=== PATIENT | female | born 1990 | race Caucasian/White ===

== ENCOUNTER 2018-12-21 07:09 | Emergency (ER) | payer OTHER ==
[2018-12-21 07:26] VITALS: BP 116/72
[2018-12-21] MEDS ORDERED: Ondansetron ODT TAB* 4 MG PO ONE (07:42)
--- NOTE | 2018-12-21 07:57 | UC ---
Abdominal Pain Female HPI - HPI Summary HPI Summary: 28 yo female with one month hx of intermittent nausea/v/d has had a sore throat for the entire time her sore throat worsened about a week ago was unable to tolerate liquids or her saliva see in urgent care in [facility] had (-) strep and mono spot started on AMOX 6 days ago Seen by PMD 2 days ago Told she had a right tonsillar abscess dose of AMOX was increased Now with severe diffuse abdominal pain, severe nausea , >20 episodes of vomiting and multiple episodes of diarrhea which started yesterday High fever (>103) severe arthralgias, myalgias (worse knees and calcaneal) Hx psoriasis - History of Current Complaint Chief Complaint: UCGI Stated Complaint: FEVER/VOMITTING Time Seen by Provider: 12/21/18 07:24 Hx Obtained From: Patient Hx Last Menstrual Period: 2 weeks ago Onset/Duration: Gradual Onset, Lasting Weeks Timing: Constant Severity Initially: Mild Severity Currently: Severe Pain Intensity: 7 Pain Scale Used: 0-10 Numeric Location: Diffuse Radiates: No Character: Cramping Aggravating Factor(s): Nothing Alleviating Factor(s): Nothing Associated Signs and Symptoms: Positive: Fever, Decreased Appetite, Nausea, Vomiting, Diarrhea. Negative: Cough, Chest Pain, Dizzy, Back Pain, Constipation , Blood in Stool, Urinary Symptoms, Vaginal Bleeding, Vaginal Discharge Allergies/Adverse Reactions: Allergies Allergy/AdvReac Type Severity Reaction Status Date / Time Sulfa (Sulfonamide Allergy Hives Verified 12/21/18 07:26 Antibiotics) Home Medications: Home Medications Acetaminophen TAB* [Tylenol TAB*] 1,000 mg PO ONCE PRN 12/21/18 [History Confirmed 12/21/18] Omeprazole 20 mg PO DAILY 12/21/18 [History Confirmed 12/21/18] Ondansetron TAB* [Zofran 4 MG Tab*] 4 mg PO Q6H PRN 12/21/18 [History Confirmed 12/21/18] PMH/Surg Hx/FS Hx/Imm Hx Previously Healthy: Yes Psychological History: Depression - Surgical History Surgical History: None - Family History Known Family History: Positive: Cardiac Disease, Hypertension, Diabetes, Non- Contributory - Social History Alcohol Use: Occasionally Substance Use Type: None Smoking Status (MU): Never Smoked Tobacco Review of Systems All Other Systems Reviewed And Are Negative: Yes Constitutional: Positive: Fever, Chills, Fatigue Skin: Positive: Rash - chronic ENT: Positive: Negative Respiratory: Positive: Negative Cardiovascular: Positive: Negative Gastrointestinal: Positive: Abdominal Pain, Vomiting, Diarrhea, Nausea Genitourinary: Positive: Negative Motor: Positive: Negative Neurovascular: Positive: Negative Musculoskeletal: Positive: Arthralgia, Myalgia Neurological: Positive: Negative Psychological: Positive: Negative Physical Exam Triage Information Reviewed: Yes Appearance: Ill-Appearing Vital Signs: Initial Vital Signs Temp 100.8 F 12/21/18 07:20 Pulse 126 12/21/18 07:20 Resp 22 12/21/18 07:20 BP 116/72 12/21/18 07:20 Pulse Ox 100 12/21/18 07:20 Vital Signs Reviewed: Yes Eyes: Positive: Conjunctiva Clear ENT: Positive: Hearing grossly normal, Pharyngeal erythema, Tonsillar swelling - ucleration right tonsil, Uvula midline. Negative: Nasal congestion, Nasal drainage, Tonsillar exudate, Trismus, Muffled voice, Hoarse voice Dental: Positive: Gross Decay/Caries @ Neck: Positive: Supple, Nontender, Enlarged Nodes @ - mild ant cerv Respiratory: Positive: Lungs clear, Normal breath sounds, No respiratory distress, No accessory muscle use Cardiovascular: Positive: RRR, No Murmur, Tachycardia Abdomen Description: Positive: No Organomegaly, Soft. Negative: Nontender - diffusely tender to palpation, CVA Tenderness (R), CVA Tenderness (L), Distended , Guarding, Hepatomegaly, Peritoneal Signs, Pulsatile Mass, Splenomegaly Bowel Sounds: Positive: Present Musculoskeletal: Positive: ROM Intact, No Edema, Other: - no hot joints Neurological: Positive: Alert Psychological Exam: Normal Skin Exam: Other - consistent psorisis Abd Pain Female Course/Dx - Course Course Of Treatment: 28 yo female ill x 1 month with sore throat/n/v/d and 3-5 pound wt loss oral ulcerations and hx of psoriasis raise the possibility of Inflammatory bowel disease - Differential Dx/Diagnosis Provider Diagnosis: Diffuse abdominal pain Discharge - Sign-Out/Discharge Documenting (check all that apply): Patient Departure All imaging exams completed and their final reports reviewed: No Studies - Discharge Plan Condition: Stable Disposition: HOME-RECOMMEND TO ED Referrals: No Primary Care Phys,NOPCP [Primary Care Provider] - Additional Instructions: I suggest you go straight to the ER for evaluation of your fever/abd pain and voimitng/diarrhea - Billing Disposition and Condition Condition: STABLE Disposition: Home-Recommend to ED
== END 2018-12-21 07:50 | disposition home health service (06) ==
LOC: UCEAST 07:09
DX: R10.84 Generalized abdominal pain (principal); R11.2 Nausea with vomiting, unspecified; R19.7 Diarrhea, unspecified; R50.9 Fever, unspecified; K12.1 Other forms of stomatitis; L40.9 Psoriasis, unspecified; Z88.2 Allergy status to sulfonamides
CPT/HCPCS: 99212; A9270-GY; G0463

== ENCOUNTER 2018-12-21 08:06 | Inpatient (IN) | payer OTHER ==
[2018-12-21] MEDS ORDERED: NS 0.9% 1000 ML** 1,000 ML IV.FLUID IV ONE (08:26)
[2018-12-21] MEDS ORDERED: Piperacillin/Tazobac ADVAN(*) 3.375 GM in NS 0.9% 100 ML* 100 ML IVPB ONE (08:26)
[2018-12-21] MEDS ORDERED: Vancomycin(*) 1,000 MG in NS 0.9% 250 ML* 250 ML IVPB ONE ×2 (08:28→09:30)
[2018-12-21] MEDS ORDERED: Ketorolac INJ* 30 MG/ML 1 ML VIAL IV PUSH ONE (08:33)
[2018-12-21] MEDS ORDERED: Metoclopramide IV* 5 MG/ML 2 ML VIAL IV ONE (08:33)
--- NOTE | 2018-12-21 08:49 | ED ---
Abdominal Pain/Female - HPI Summary HPI Summary: Patient is a 28-year-old female with history of depression, anxiety, eczema and bilateral kidney stones presenting to the ED with diffuse abdominal pain, nausea , vomiting, joint aches and sore throat 1 month. She also endorses fevers, sweats, chills and mild cough without production. All symptoms have worsened over the past 2 days. She denies CP or SOB. One month ago her symptoms began with diffuse abdominal pain, nausea and vomiting which was intermittent, worse after eating although remained present despite PO intake. She then developed joint aches, most notably to her bilateral knees, ankles, pain and slight erythema just superior to the bilateral ankles and bilateral heel pain making her difficult to walk. She denies any weakness, but endorses fatigue. Denies any rashes, tick bites and patient is not outside frequently. She was seen by [facility] and diagnosed with viral syndrome but did not improve. She then saw her primary care, Dr. Irina Clements, who placed her on omeprazole and diagnosed her with acute laryngitis. She states despite feeling N/V/D x 1 mo, she did not seek help until last week. Denies vomiting daily, but endorses nausea daily. Over the past 2 days, she endorses nausea too many to count. Diarrhea daily, profuse but not watery. She has been taking cold baths and taking Tylenol for the past 36 hours for her sxs. Menses regular. Patient on OCP use. No change or diet or environment. Denies melena, hematemesis, hemoptysis, hematuria, UTI sxs, back pain. [place] and strep both negative at 2 days ago. She was seen at today and sent here for further evaluation. Temp 101.0, 125 pulse, respirations 18, 98% on RA and BP 119/83. Mother is at bedside. Patient is a school psychologist. Non-smoker, drinks alcohol occasionally. - History of Current Complaint Chief Complaint: EDAbdPain Stated Complaint: FEVER, BODY ACHE, COMMING FROM Time Seen by Provider: 12/21/18 08:09 Hx Obtained From: Patient, Family/Non Destructive Testing Scientist Hx Last Menstrual Period: 2 weeks ago ?: No Onset/Duration: Gradual Onset Timing: Constant Severity Initially: Severe Severity Currently: Severe Pain Intensity: 7 Pain Scale Used: 0-10 Numeric Location: Diffuse Radiates: No Character: Cramping Aggravating Factor(s): Food Alleviating Factor(s): Nothing Associated Signs and Symptoms: Positive: Diaphoresis, Fever, Cough, Nausea, Vomiting, Diarrhea. Negative: Chest Pain, Dizzy, Back Pain, Constipation, Blood in Stool, Urinary Symptoms, Decreased Appetite, Vaginal Discharge - Risk Factors Ovarian Torsion Risk Factor: Reproductive Age Allergies/Adverse Reactions: Allergies Allergy/AdvReac Type Severity Reaction Status Date / Time Sulfa (Sulfonamide Allergy Hives Verified 12/21/18 07:26 Antibiotics) PMH/Surg Hx/FS Hx/Imm Hx Previously Healthy: Yes Endocrine/Hematology History: Denies: Hx Diabetes, Hx Thyroid Disease Cardiovascular History: Denies: Hx Hypertension Respiratory History: Reports: Hx Asthma Denies: Hx Chronic Obstructive Pulmonary Disease (COPD) GI History: Denies: Hx Ulcer Musculoskeletal History: Denies: Hx Scoliosis Neurological History: Denies: Hx Headaches, Other Neuro Impairments/Disorders - Immunization History Hx Pertussis Vaccination: No Immunizations Up to Date: Yes Infectious Disease History: No Infectious Disease History: Denies: Hx Hepatitis, Hx Human Immunodeficiency Virus (HIV), Traveled Outside the [place] in Last 30 Days - Family History Known Family History: Positive: Cardiac Disease, Hypertension, Diabetes, Non- Contributory - Social History Occupation: Employed Full-time - school psychologist Lives: With Family Alcohol Use: Occasionally Hx Substance Use: No Substance Use Type: Reports: None Hx Tobacco Use: No Smoking Status (MU): Never Smoked Tobacco Have You Chewed or Dipped Tobacco in the LAST YEAR: No Have You Smoked in the Last Year: No Household Exposure: No Review of Systems Positive: Fever, Chills, Fatigue, Skin Diaphoresis Positive: Erythema - on arrival/possibly secondary to emesis. Negative: Photophobia, Blurred Vision, Diplopia, Drainage Positive: Sore Throat - odynophagia and dysphagia Negative: Palpitations, Chest Pain Positive: Cough. Negative: Shortness Of Breath Positive: Abdominal Pain, Vomiting, Diarrhea, Nausea Genitourinary: Negative Positive: no symptoms reported, see HPI. Negative: burning, discharge, flank pain, hematuria, incontinence, pain Positive: Arthralgia - polyarthropathy/ knees and ankles - worse to bilateral heels, Myalgia Neurological: Other - extreme fatigue Positive: Weakness. Negative: Headache, Paresthesia, Numbness, Syncope, Slurred Speech All Other Systems Reviewed And Are Negative: Yes Physical Exam Triage Information Reviewed: Yes Vital Signs On Initial Exam: Initial Vitals Temp Pulse Resp BP Pulse Ox 101.0 F 125 18 119/83 98 12/21/18 08:07 12/21/18 08:07 12/21/18 08:07 12/21/18 08:07 12/21/18 08:07 Vital Signs Reviewed: Yes Appearance: Positive: Well-Nourished, Ill-Appearing, Thin Skin: Positive: Other - eczema throughout (baseline), erythematous areas just above the ankle and to the bilateral dorsal feet Head/Face: Positive: Normal Head/Face Inspection Eyes: Positive: Conjunctiva Inflammed ENT: Positive: Other - apthous ulcer - R tonsil Neck: Positive: Supple, Nontender, Enlarged Nodes @ - cervical anterior, Other: - 1/10 pain with flexion/extension and rotation about the neck Respiratory/Lung Sounds: Positive: Clear to Auscultation, Breath Sounds Present Cardiovascular: Positive: Tachycardia. Negative: Leg Edema Left, Leg Edema Right Abdomen Description: Positive: Soft, Other: - tenderness throughout on light palpation, no organomegaly. Negative: No Organomegaly, CVA Tenderness (R), CVA Tenderness (L), Distended, Guarding, Hepatomegaly, McBurney's Point Tenderness Bowel Sounds: Positive: Hyperactive Musculoskeletal: Positive: Strength/ROM Intact Neurological: Positive: Sensory/Motor Intact, Alert, Oriented to Person Place, Time, Speech Normal Psychiatric: Positive: Normal, Affect/Mood Appropriate AVPU Assessment: Alert Diagnostics - Vital Signs Vital Signs Temp Pulse Resp BP Pulse Ox 12/21/18 08:07 101.0 F 125 18 119/83 98 - Laboratory Result Diagrams: 12/21/18 09:03 12/21/18 09:03 Lab Statement: Any lab studies that have been ordered have been reviewed, and results considered in the medical decision making process. - Radiology Chest xray Radiology Interpretation Completed By: Radiologist - IMPRESSION: No active cardiopulmonary disease is noted. - CT Ct abd/pelvis CT Interpretation Completed By: Radiologist - IMPRESSION: There is wedge-shaped enhancement defects in the upper pole of the left kidney. Mild enlargement of the left kidney is noted and the possibility of pyelonephritis of the left kidney should be considered. Nonobstructing calculi are noted in both kidneys. Additionally there may be some mucosal thickening in the descending colon and sigmoid colon for which underlying colitis is not excluded. - EKG No standard instances Cardiac Rate: Tachycardia EKG Rhythm: Sinus Rhythm ST Segment: Normal Ectopy: None EKG Comparison: Other - none for comparison Re-Evaluation - Re-Evaluation First Eval Re-Evaluation Time: 10:00 Change: Unchanged - patients joint pains have improved slightly/diarrhea worse Second Eval Re-Evaluation Time: 11:30 Change: Worse - profuse diarrhea, worsening with BM every 10 min Third Eval Re-Evaluation Time: 12:20 Change: Worse - endorses worsening fatigue and diarrhea, arthropathy improved Abdominal Pain Fem Course/Dx - Course Course Of Treatment: On arrival to the ED, septic workup was initiated. On physical examination, patient appears ill. She is slightly diaphoretic and tachy with a 101.0 temp. She has not taken Tylenol today, but had Zofran just CHIEF LEGAL OFFICER given to her by UC. This without significant improvement. Lungs CTA, tachy with regular rhythm, bilateral cervical LAD with no enlarged supraclavicular nodes. No pharyngeal erythema, tripoding, muffled voice or drooling. Enlarged +1 tonsil bilaterally without exudates. No rhinorrhea, conjunctival infection. No neck stiffness on exam and patient is able to rotate, flex and extend with minimal amount of stiffness. Denies photophobia. Abdominal pain throughout in all quadrants on light palpation. Bilateral knees with pain on palpation without erythema, ecchymosis. Bilateral ankles just superior are small erythematous area which are exquisitely tender t to touch. Bilateral heels without erythema, also exquisitely tender to the touch. Eczema throughout ( baseline). Septic workup obtained, vitamin b12, iron and vitamin d to assess for malabsorption. Lyme PCR obtained and is pending . Stool culture ordered and pending including c. diff. Iron low at 17. Vitamin B12 and Vitamin D WNL. ESR 94 and CRP 159. HCG negative. US shows infection with 3+ WBC, 2+ leuks and 3+ RBCs. ESR and CRP with CT abd/pelvis obtained to assess crohns etiology. She is given vanco, zosyn, 2L fluids, Reglan and toradol. Abd/ pelvis: IMPRESSION: There is wedge-shaped enhancement defects in the upper pole of the left. kidney. Mild enlargement of the left kidney is noted and the possibility of pyelonephritis. of the left kidney should be considered. Nonobstructing calculi are noted in both kidneys. Additionally there may be some mucosal thickening in the descending colon and sigmoid. colon for which underlying colitis is not excluded. Pending C. diff. Discussed case with Dr. Beard at 11:55a. who recommended lactoferrin, ova and parasite, cryptosporidium and giardia as well. Advised to admit. Discussed with Dr. Eid at 12:05p who accepts for admission for further evaluation. Differentials include: Crohns disease/IBD, celiac disease, lyme disease with arthropathy, malabrosption/malnutrition, acute rheumatic fever, pyelonephritis, septicemia, UTI. - Diagnoses Differential Diagnosis: Positive: Other - Pyelonephritis, Crohn's disease, IBD, celiac disease, Lyme disease with arthropathy, malabsorption, pyelonephritis, septicemia, UTI Provider Diagnoses: Septicemia, Nausea & vomiting, Diarrhea, Abdominal pain, UTI (urinary tract infection) Is Visit Related: No - Provider Notifications Discussed Care Of Patient With: Torin Beard Time Discussed With Above Provider: 11:55 Instructed by Provider To: Admit As Inpatient - Critical Care Time Critical Care Time: 75-104 min Discharge - Sign-Out/Discharge Documenting (check all that apply): Patient Departure All imaging exams completed and their final reports reviewed: Yes Patient Received Moderate/Deep Sedation with Procedure: No - Discharge Plan Condition: Fair Disposition: ADMITTED TO [facility] - Billing Disposition and Condition Condition: FAIR Disposition: Admitted to [facility]
[2018-12-21 09:07] LABS: Urine Appearance Cloudy; Urine Bacteria Absent (Absent); Urine Bilirubin Negative (Negative); Urine Blood 1+ (Negative); Urine Color Yellow; Urine Glucose Negative (Negative); Urine Ketones Trace (Negative); Urine Nitrite Negative (Negative); Urine Protein 1+(30 mg/dL) (Negative); Urine Red Blood Cell 3+(>10/hpf) (Absent); Urine Specific Gravity 1.013 (1.010-1.030); Urine Squamous Epithelial Cell Present (Absent); Urine Urobilinogen Negative (Negative); Urine White Blood Cell 3+(>20/hpf) (Absent)
[2018-12-21 09:11] LABS: ABS Basophils 0.1 10^3/ul (0-0.2); ABS Lymphocytes 1.2 10^3/ul (1.0-4.8); ABS Monocytes 0.7 10^3/ul (0-0.8); ABS Neutrophils 10.7 10^3/ul (1.5-7.7); Eosinophil % 0.1 %; Hematocrit 36 % (35-47); Hemoglobin 11.9 g/dL (12.0-16.0); Lymphocyte % 9.8 %; Mean Corpuscular HGB Conc 33 g/dL (31-36); Mean Corpuscular Hemoglobin 28 pg (27-31); Mean Corpuscular Volume 84 fL (80-97); Mean Platelet Volume 7.2 fL (7.4-10.4); Platelet Count 367 10^3/uL (150-450); Red Blood Count 4.26 10^6 /uL (3.70-4.87); Red Cell Distribution Width 13 % (10.5-15); White Blood Count 12.7 10^3/uL (3.5-10.8)
[2018-12-21 09:16] LABS: Influenza A Molecular NEGATIVE (Negative); Influenza B Molecular NEGATIVE (Negative)
[2018-12-21 09:31] LABS: ALT 8 U/L (7-52); AST 10 U/L (13-39); Albumin 3.8 g/dL (3.2-5.2); Albumin/Globulin Ratio 1.1 (1-3); Alkaline Phosphatase 58 U/L (34-104); Amylase 50 U/L (29-103); Anion Gap 8 mmol/L (2-11); BUN/Creatinine Ratio 5.2 (8-20); Blood Urea Nitrogen 6 mg/dL (6-24); C Reactive Protein 159.59 mg/L (<8.01); CO2 Carbon Dioxide 26 mmol/L (22-32); Calcium 8.8 mg/dL (8.6-10.3); Chloride 101 mmol/L (101-111); EGFR African American 66.8 (>60); EGFR Non-African American 55.2 (>60); Globulin 3.6 g/dL (2-4); Glucose 103 mg/dL (70-100); Potassium 3.7 mmol/L (3.5-5.0); Sodium 135 mmol/L (135-145); Total Protein 7.4 g/dL (6.4-8.9)
[2018-12-21 09:36] LABS: HCG Pregnancy < 0.60 mIU/mL
[2018-12-21 10:23] LABS: Erythrocyte Sed Rate 94 mm/Hr (0-19)
[2018-12-21 10:26] LABS: Iron < 17 ug/dL (50-212)
[2018-12-21 10:36] LABS: Vitamin D Total 25(OH) 30.4 ng/mL (20-50)
[2018-12-21] MEDS ORDERED: Iodixanol* (CONTRAST) 320 MG/ML 100 ML SDV IV ONE (11:04)
[2018-12-21] MEDS ORDERED: LORazepam INJ* 2 MG/ML 1 ML VIAL IV PUSH ONE (11:38)
[2018-12-21] MEDS ORDERED: Lorazepam PYXIS KEY PRN (11:38)
[2018-12-21] MEDS ORDERED: Lorazepam PYXIS KEY ONE (11:44)
--- NOTE | 2018-12-21 14:46 | HP ---
CC: Dr. Irina Clements * [facility] MEDICINE HISTORY AND PHYSICAL: DATE OF ADMISSION: 12/21/18 PRIMARY CARE PHYSICIAN: Dr. Irina Clements. ATTENDING PHYSICIAN: Dr. Annita Eid * (dictation provided by Raina Hollins NP) . CHIEF COMPLAINT: Nausea, vomiting, diarrhea, and low-grade fever. HISTORY OF PRESENT ILLNESS: Ms. Whitman is a 28-year-old female with a past medical history of depression and anxiety, who presents to the hospital today with concern for 1 month of nausea, vomiting, diarrhea, and low-grade fevers. Ms. Whitman is very tired and withdrawn during my examination, but she confirms that she has had these symptoms for a month. She notes diarrhea every day. She feels that certain things that she eats tends to exacerbate this more, nothing seems to make it much better. She has abdominal pain, which she describes as being in the middle of her abdomen and like a stabbing sensation. She has had low-grade fevers running about 99 to 100 almost every day. She has been seen in the urgent care. The patient presents today for this concern because she state that she just felt so terrible and had fever there. She is found to have a temperature of 101 with a pulse of 125 and was therefore transitioned over to the emergency room for further evaluation. In addition to the nausea, vomiting, and diarrhea, she also describes joint aches in the knees and ankles. She had [facility] and by per primary care physician, Dr. Irina Clements. At that point, she was complaining of sore throat and perhaps she had acute laryngitis. In the emergency room, the patient's labs showed a white blood cell count of 12.7, ESR 94, CRP is 159.59. Her creatinine is slightly elevated from baseline at 1.16. Beta hCG is negative. Urinalysis shows 2+ leuk esterase with no nitrite, no bacteria. Her flu swab is negative. She did have an abdomen and pelvis CT which was read as follows: "There is a wedge-shaped enhancement defects in the upper pole of the left kidney, mild enlargement of the left kidney is noted and the possibility of pyelonephritis of the left kidney should be considered. Nonobstructing calculi are noted in both kidneys. Additionally, there may be some mucosal thickening in the descending colon, sigmoid colon for which underlying colitis is not excluded." She had an EKG which showed a sinus tachycardia with the heart rate about 110. There is no evidence of ischemia. PAST MEDICAL HISTORY: 1. Depression. 2. Anxiety. MEDICATIONS: 1. BuSpar 10 mg p.o. daily. 2. Bupropion 300 mg p.o. daily. 3. Venlafaxine 150 mg p.o. daily. 4. Propranolol 20 mg p.o. daily. 5. Ondansetron 4 mg p.o. q.6 hours p.r.n. 6. Omeprazole 20 mg p.o. daily. 7. Norethindrone estradiol 1 tab p.o. daily. FAMILY HISTORY: The patient's mother is at the bedside and she confirms that she and the patient's father are both in good health. SOCIAL HISTORY: There is no prior tobacco or drug use. The patient states she drinks alcohol occasionally. She states her mom is healthcare proxy. REVIEW OF SYSTEMS: A 14-point review of systems was completed with Ms. Whitman and all those not mentioned above were negative. PHYSICAL EXAMINATION GENERAL: Ms. Whitman is lying in the bed. She was very tired and she was asleep and snoring when I walked in the room, but she awakened easily to voice. VITAL SIGNS: Temperature 101, heart rate 90, respiratory rate 18, O2 saturation 97% on room air, and blood pressure 104/67. LUNGS: Clear to auscultation bilaterally with no accessory muscle use and good aeration. HEART: S1, S2. No murmur, rub, or gallop and regular. ABDOMEN: Soft, bowel sounds are positive. There is no rebound or guarding, but she endorses tenderness throughout. No focal point of tenderness. No CVA tenderness. EXTREMITIES: No cyanosis or edema. NEUROLOGIC: She again is drowsy, but awakens easily to voice and participates appropriately. She moves all extremities equally. There is no facial asymmetry or focal weakness. Her extraocular movements are intact. SKIN: Intact, but there is psoriasis noted throughout bilateral lower extremities. DIAGNOSTIC STUDIES/LAB DATA: WBC 12.7, hemoglobin 11.9, hematocrit 36, platelet count 367. ESR 94. Sodium 135, potassium 3.7, chloride 101, serum bicarbonate 26, BUN 6, creatinine 1.16, glucose 103, lactic acid 1.1. CRP 159.59, beta hCG is less than 0.6. Urinalysis shows 2+ leuk esterase, no nitrite and no bacteria. Flu swab is negative. CT abdomen and pelvis as read above. Chest x-ray shows no active cardiopulmonary disease. ASSESSMENT AND PLAN: Ms. Whitman is a 28-year-old female with 1-month history of nausea, vomiting, diarrhea with some report of sore throat along the way, who presents today to the hospital with fever. Out plans are for observation in the hospital for the followin. Nausea, vomiting, diarrhea, fever: It is unclear what is starting the patient's symptoms, although certainly auto-immune process such as Crohn's and inflammatory bowel disease are high on the differential. She does have psoriasis. She does have an elevated ESR, CRP. Dr. Beard from GI has been consulted, and he is strongly considering likelihood of flex sig tomorrow. I did speak with him today, and he would like her to be on clear liquids until tonight and n.p.o. after midnight. She will have intravenous fluids tonight. She will have ondansetron available p.r.n. 2. Pyonephritis: The patient has no CVA tenderness. Her CT and her urinalysis are concerning for possible pyelonephritis. We are going to treat for now with ceftriaxone which would also provide an alternate explanation for elevated ESR, CRP. 3. Depression and anxiety. Plan to continue home meds. 4. DVT prophylaxis with SCDs. 5. Code status is full code. TIME SPENT: Approximately 60 minutes was spent on the admission of this patient , more than half the time spent with the patient at the bedside reviewing the events leading up to this hospitalization, performing the physical examination and reviewing my plan of care. RAINA HOLLINS, TIKA [id number]/CPS #: [id number] DEB
[2018-12-21] MEDS: NS 0.9% 1000 ML** 1,000 ML IV SCH (15:34)
[2018-12-21] MEDS ORDERED: BuPROPion XL* 300 MG TAB.XL PO STA (18:29)
[2018-12-21] MEDS: Acetaminophen TAB* 325 MG PO PRN (19:02)
--- NOTE | 2018-12-21 22:46 | CONS ---
CC: Irina Clements MD * CONSULTATION REPORT: DATE OF CONSULT: 12/21/18 PRIMARY CARE PHYSICIAN: Irina Clements MD. REQUESTING PROVIDER: Raina Hollins NP. REASON FOR CONSULTATION: Nausea, vomiting, diarrhea, abnormal CAT scan. HISTORY OF PRESENT ILLNESS: This is a 28-year-old female with a past medical history of depression and anxiety, who presented to the hospital today for nausea, vomiting, diarrhea, and low-grade fevers. She has had nausea and vomiting symptoms for multiple years; however, the diarrhea is relatively new. She states at times it will be 3 to 4 times a day, loose, sometimes liquid. She will have movements that waken her out of sleep at night. She does think that certain foods do seem to worsen the diarrhea, but is unclear exactly which food. She denies any association with fatty foods or wheat gluten. She admits to abdominal pain, which she states is all over at times or still in the middle of the abdomen, sharper in nature, 6/10, waxing and waning. She has had subjective fever at home, but over the last 48 hours, she has had shakes and chills accompanying this, was found to have a temperature of 101 at 0125 at urgent care today and then was transitioned to the emergency room for further evaluation. She denies any history of this in the past. She states that occasionally she will have some nausea and epigastric pain, but not to the extent that she is presenting with today. She states occasionally she will see blood in the stool. She thinks that there are hemorrhoids, but has never been officially evaluated. She states that occasionally she will see bright red blood in the bowel. She denies any melena. Denies any dysphagia or odynophagia. She does admit to sore throat recently. She also admits to symmetrical joint pains, especially of the knees, ankles, and heels. She states that the pain in the left extremity is greater than the right. Denies any dysuria or hematuria. She admits to some weight loss, but is unable to pinpoint an amount over the last month or so. No new medications were started during this time. She does not take any herbals or supplements. The remainder of the 14-point review of systems is grossly negative. PAST MEDICAL HISTORY: 1. Depression. 2. Anxiety. MEDICATIONS: Include: 1. BuSpar. 2. Bupropion. 3. Venlafaxine. 4. Propranolol. 5. Zofran. 6. Omeprazole. 7. Estradiol. ALLERGIES: Include SULFA. FAMILY HISTORY: No family history of GI cancer or inflammatory bowel disease. SOCIAL HISTORY: No tobacco or drug use. Occasional social alcohol use. Recent tattoo but was done in [facility]. REVIEW OF SYSTEMS: The remainder of the 14-point review of systems is grossly negative except for as described in the HPI. PHYSICAL EXAMINATION: Vital Signs: Blood pressure is 120/81, pulse 96, respiratory rate is 16, 99% on room air, temperature is 99.1, T-max is 101 in the emergency room. In general, alert and oriented x3, in no acute distress. HEENT: Atraumatic, normocephalic. Pupils equal, round, reactive to light. Sclerae are slightly injected. Conjunctivae are pink. No icterus is noted. Aphthous ulcers noted in oropharynx. Neck: Supple. Trachea midline. Cardiovascular: Tachycardic S1, S2. Respiratory: Clear to auscultation bilaterally. Abdomen: Soft, mild diffuse tenderness to palpation. Bowel sounds are positive. No guarding or rebound. No palpable hepatosplenomegaly. Extremities: No clubbing. No cyanosis. No edema. Skin: Some psoriatic plaques are scattered throughout. Psych: Appropriate mood and affect. Rectal: Deferred until flexible sigmoidoscopy. LABORATORY DATA/DIAGNOSTIC STUDIES: Hemoglobin 11.9, WBC count 12.7, platelet count 367. Iron less than 17. Bilirubin 0.5, AST 10, ALT 8. CRP 159. Beta- hCG is negative. Amylase 50, lipase 18, albumin 3.8, creatinine 1.16. She had a CT of the abdomen and pelvis done on 12/21/18. This showed concern for pyelonephritis along with mucosal thickening of the descending and sigmoid colon. Chest x-ray done on the same day revealed no active cardiopulmonary disease. She had stool testing done at my request with a C. diff that was negative with stool culture, ova and parasites pending. Her lactoferrin exam was negative. ASSESSMENT AND PLAN: This is a 28-year-old female with nausea, vomiting, diarrhea. 1. Diarrhea. She does have nocturnal symptoms, which is concerning for secretory process including inflammatory bowel disease. C. diff has been negative. Discussed the risks, benefits, and alternatives and the patient would like to proceed with flexible sigmoidoscopy to evaluate for inflammatory bowel disease on 12/22/18. She does have some arthropathies and associated kidney stones, which could be sequelae of inflammatory bowel disease. 2. Nausea, vomiting. May be secondary to pyelonephritis of unclear etiology. The patient is getting p.r.n. antiemetics with good effect. Continue pantoprazole 20 mg daily at this time. 3. Symmetrical arthropathies. Unclear etiology. ESR and CRP are elevated. 4. Pyelonephritis. On ceftriaxone per primary team. 5. Nephrolithiasis. [id number]/[id number] #: [id number] MTDD
[2018-12-22] MEDS: Ondansetron TAB* 4 MG PO PRN ×2 (03:11→08:38)
[2018-12-22] MEDS: Acetaminophen TAB* 325 MG PO PRN ×3 (03:11→20:43)
[2018-12-22] MEDS: NS 0.9% 1000 ML** 1,000 ML IV SCH ×2 (04:31→22:08)
[2018-12-22 07:27] LABS: Calcium 7.9 mg/dL (8.6-10.3); EGFR African American 78.4 (>60); EGFR Non-African American 64.8 (>60); Potassium 3.6 mmol/L (3.5-5.0)
[2018-12-22 07:45] LABS: ABS Lymphocytes 1.5 10^3/ul (1.0-4.8); ABS Monocytes 0.9 10^3/ul (0-0.8); ABS Neutrophils 8.8 10^3/ul (1.5-7.7); Eosinophil % 0.2 %; Hematocrit 34 % (35-47); Hemoglobin 11.1 g/dL (12.0-16.0); Lymphocyte % 13.5 %; Mean Corpuscular HGB Conc 32 g/dL (31-36); Mean Corpuscular Hemoglobin 28 pg (27-31); Mean Corpuscular Volume 87 fL (80-97); Mean Platelet Volume 7.8 fL (7.4-10.4); Nucleated Red Blood Cells % 0.1; Platelet Count 308 10^3/uL (150-450); Red Blood Count 3.96 10^6 /uL (3.70-4.87); Red Cell Distribution Width 13 % (10.5-15); White Blood Count 11.2 10^3/uL (3.5-10.8)
[2018-12-22] MEDS: NORETHINDR PO SCH (08:43)
[2018-12-22] MEDS: busPIRone TAB* 10 MG PO SCH (08:43)
[2018-12-22] MEDS: ETH ESTRADIOL PO SCH (08:43)
[2018-12-22] MEDS: Venlafaxine EXT RELEASE CAP* 75 MG PO SCH (08:43)
[2018-12-22] MEDS: Pantoprazole TAB * 40 MG TAB PO SCH (08:53)
[2018-12-22] MEDS: BuPROPion XL* 300 MG TAB.XL PO SCH (08:53)
[2018-12-22] MEDS: Propranolol TAB* 20 MG PO SCH (08:53)
[2018-12-22] MEDS ORDERED: cefTRIAXone(*) 1 GM in NS 0.9% 50 ML* 50 ML IVPB SCH (09:00)
[2018-12-22] MEDS ORDERED: PROCHLORPERAZINE INJ 5 MG/ML 2 ML VIAL IV ONE (10:55)
[2018-12-22] MEDS ORDERED: PROCHLORPERAZINE INJ 5 MG/ML 2 ML VIAL IV PRN (12:18)
[2018-12-22] MEDS ORDERED: fentaNYL* 50 MCG/ML 2 ML VIAL (100 MCG VIAL) ONE (14:16)
[2018-12-22] MEDS ORDERED: Midazolam* 1 MG/ML 10 ML VIAL (10 MG) ONE (14:17)
[2018-12-22 14:20] LABS: Neisseria gonorrhoeae (GC) RNA Negative (Negative)
--- NOTE | 2018-12-22 14:44 | CONS ---
CONSULTATION REPORT: DATE OF CONSULT: 12/22/18 REQUESTING PHYSICIAN: Dr. Ames. CONSULTING SERVICE: Infectious Disease. REASON FOR CONSULT: Fever. IMPRESSION: 1. Approximately 1 month of severe sore throat, low-grade fever, diarrhea, nausea, vomiting, weight loss, sweats. Bilateral knee and ankle pain without a particularly inflammatory pattern. Differential diagnosis includes infection. She has an abnormal urinalysis along with a CT scan that shows wedge-shaped enhancement in the upper pole of the left kidney and mild enlargement of the left kidney, though I do not think that her symptoms are compatible with pyelonephritis. Her blood cultures negative so far. Viral infections are consideration including David-Rosenberg or cytomegalovirus acute infection. Noninfectious consideration including autoimmune, i.e., inflammatory bowel disease being explored as well. Autoinflammatory disorders like adult Still's or familial fever disorders may become relevant if the rest of the workup is negative. 2. SULFA allergy caused hives. RECOMMENDATIONS: We will stop her ceftriaxone. Urine culture was negative. We will add an David-Rosenberg and CMV serology and await the flexible sigmoidoscopy results. HISTORY OF PRESENT ILLNESS: This is a 28-year-old woman who has been ill for about a month, admitted with fever and diarrhea. She had the onset of sore throat, fever, diarrhea, diffuse abdominal pain and vomiting about a month ago. She was seen as an outpatient in urgent care and then by her primary, start on amoxicillin. She has had no improvement in her symptoms overall, which now include daily low- grade fevers, sweats at night, weight loss of a few pounds, some decrease in appetite and abdominal pain, which is still diffuse. She has had 3 or 4 loose stools a day with some vomiting. No blood or mucus in the stool. She has not had anything like this in the past. She has had for the full month also a severe sore throat, worse with eating and drinking. She has had no skin rash other than her baseline psoriasis. Here, she had a urinalysis which showed blood, leukocyte esterase. Urine cultures negative. CT that showed enlargement of the left kidney and some wedge-shaped changes. White count of 12, today it is 11. Creatinine was 1. CRP 160. HCG negative. Influenza PCR negative. Chest x-ray was negative. PAST MEDICAL HISTORY: 1. Depression. 2. Anxiety. ALLERGIES: SULFA caused urticaria. MEDICATIONS: 1. Tylenol 2. Bupropion. 3. BuSpar. 4. Norethindrone estradiol. 5. Zofran. 6. Pantoprazole. 7. Effexor. 8. Ceftriaxone. 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 She lives in [place]. No travel in the last few months. No new partners or current partners in the last few weeks. FAMILY HISTORY: Parents are both healthy. REVIEW OF SYSTEMS: A 14-point review is all negative except as noted above in the history of present illness. PHYSICAL EXAM: Vital Signs: Temperature is 38.7, heart rate 90, respiratory rate 16, blood pressure 106/67, oxygen saturation 100% on room air. In general , she is awake, mildly diaphoretic, not in distress. Neurologic: She is oriented x3, follows all commands. HEENT: There is no conjunctival hemorrhage. Oropharynx without lesions. Neck is supple without mass. Heart is regular rate and rhythm without murmurs, rubs, or gallops. Lungs: Clear to auscultation bilaterally. Lymph Nodes: There is no cervical, supraclavicular, inguinal, axillary, or epitrochlear lymphadenopathy. Abdomen: Soft. There are bowel sounds present. There is no rebound. There is no tenderness to palpation. Skin: Over the nose and forehead as well as flexor surface, there are diffuse erythematous patches with some scale. No other rash. Musculoskeletal: There is no spine tenderness to palpation or joint synovitis. There is no knee or ankle effusion. DIAGNOSTIC STUDIES/LAB DATA: White blood cell count 11, hemoglobin 11, platelets 308. Creatinine is 1. Please see impression and recommendations outlined above, which was discussed with Dr. Ames. Thank you for asking me to see Ms. Whitman in consultation. [id number]/[facility] #: [id number] DEB
--- NOTE | 2018-12-22 17:24 | PN ---
Subjective Date of Service: 12/22/18 Interval History: Feels achy, weak and fatigued No cough, SOB Nausea and emesis this AM +liquid diarrhea Objective Active Medications: Acetaminophen (Tylenol Tab*) 650 mg PO Q6H PRN PRN Reason: PAIN Last Admin: 12/22/18 11:45 Dose: 650 mg Bupropion HCl (Bupropion Xl*) 300 mg PO DAILY [facility] Last Admin: 12/22/18 08:53 Dose: 300 mg Buspirone HCl (Buspar Tab*) 10 mg PO DAILY [facility] Last Admin: 12/22/18 08:43 Dose: 10 mg Ethinyl Estradiol/Norethindrone (Lo Loestrin Fe (Nf)) 1 tab PO DAILY [facility] Last Admin: 12/22/18 08:43 Dose: Not Given Sodium Chloride (Ns 0.9% 1000 Ml) 1,000 mls @ 75 mls/hr IV PER RATE [facility] Last Admin: 12/22/18 04:31 Dose: 75 mls/hr Ondansetron HCl (Zofran Inj*) 4 mg IV Q4H PRN PRN Reason: NAUSEA Pantoprazole Sodium (Protonix Tab*) 40 mg PO DAILY [facility] Last Admin: 12/22/18 08:53 Dose: 40 mg Propranolol HCl (Inderal Tab*) 20 mg PO DAILY [facility] Last Admin: 12/22/18 08:53 Dose: 20 mg Venlafaxine HCl (Effexor Xr Cap*) 150 mg PO DAILY [facility] Last Admin: 12/22/18 08:43 Dose: 150 mg Vital Signs - 8 hr 12/22/18 12/22/18 12/22/18 11:40 17:05 17:06 Temperature 101.7 F 99.5 F Pulse Rate 96 93 Respiratory 16 16 Rate Blood Pressure 106/67 94/55 104/64 (mmHg) O2 Sat by Pulse 100 100 Oximetry Oxygen Devices in Use Now: None Appearance: NAD Eyes: No Scleral Icterus, PERRLA Ears/Nose/Mouth/Throat: NL Teeth, Lips, Gums, - - +aphthous ulcer right palatine tonsil Neck: NL Appearance and Movements; NL JVP, Trachea Midline Respiratory: Symmetrical Chest Expansion and Respiratory Effort, Clear to Auscultation Cardiovascular: NL Sounds; No Murmurs; No JVD, RRR Abdominal: NL Sounds; No Tenderness; No Distention, No Hepatosplenomegaly Lymphatic: No Cervical Adenopathy, No Axillary Adenopathy Extremities: No Edema, - - small area of tenderness over flexor surface of left foot Skin: No Rash or Ulcers, No Nodules or Sclerosis Neurological: Alert and Oriented x 3 Result Diagrams: 12/22/18 06:47 12/22/18 06:47 Microbiology and Other Data: Microbiology 12/21/18 11:34 Stool Gross Appearance - Final Stool Stool Lactoferrin - Final Cryptosporidium/Giardia - Final Neg Cryptosporidium/Giardia 12/21/18 08:53 Urine Culture - Final Urine 12/21/18 09:03 Aerobic Blood Culture - Preliminary Blood Venous No Growth Day 1 Anaerobic Blood Culture - Preliminary No Growth Day 1 12/21/18 09:03 Aerobic Blood Culture - Preliminary Blood Venous No Growth Day 1 Anaerobic Blood Culture - Preliminary No Growth Day 1 12/21/18 11:34 Stool Gross Appearance - Final Stool C. difficile DNA Amplification - Final 027 Presumptive NEGATIVE Toxigenic C.diff NEGATIVE 12/21/18 11:34 Stool Gross Appearance - Final Stool Assess/Plan/Problems-Billing Assessment: 28 yo F h/o anxiety/depression presents with 1 month N/V diarrhea, fatigue, LE joint pains found on CT with e/o colitis and/or pyelonephritis - Patient Problems (1) Fever Comment: appreciate ID c/s EBV and CMV titers pending holding CTX, restart if change in clinical status no symptoms of UTI and no bacteria in urine/culture negative blood cxs negative no colitis on flex sig (2) Depression Comment: bupoprion buspar (3) Colitis Comment: no e/o colitis on flex sig biopsies taken and results pending
--- NOTE | 2018-12-22 20:41 | PRO ---
CC: Dr. Irina Clements * DATE OF PROCEDURE: 12/22/18 - ROOM #411 PROCEDURE: Colonoscopy. INDICATION: Diarrhea. REFERRING PHYSICIAN: Dr. Irina Clements. MEDICATIONS GIVEN: 100 mcg IV fentanyl, 4 mg IV Versed. DESCRIPTION OF PROCEDURE: After the colonoscopy procedure, including the risks , benefits, and alternatives, not limited to perforation, surgery, and/or were explained to the patient, written consent was then obtained, IV medication was given, and a rectal exam was performed. Rectal exam revealed a very patulous anal sphincter. An Olympus pediatric colonoscope was then inserted into the patient's rectum and advanced very carefully through the entirety of the colon and into the distal terminal ileum. Distal few centimeters of the terminal ileal mucosa were unremarkable. Scope was then withdrawn in cecal base. Careful and thorough inspection within the cecal base did not reveal any abnormalities. The quality of the preparation was fair. Scope was then withdrawn in a very careful manner over the next 10 minutes through the remainder of the colon. No abnormalities were seen. No colitis was seen. No evidence of ulcerative colitis or Crohn's disease. Additionally in the ileum, no inflammation was seen. Multiple random biopsies were taken to evaluate for microscopic colitis. The scope was then withdrawn from the patient. Retroflexion maneuver within the rectum was not able to be performed due to the patient's small rectal vault. Scope was withdrawn from the patient. She tolerated the procedure well and was returned to the recovery room in stable condition. IMPRESSION: 1. Complete colonoscopy into the terminal ileum with multiple random biopsies. 2. No evidence of colitis or inflammatory bowel disease. Normal colonoscopy. 3. I will follow up on all the biopsies. Report back to the patient at that time. [id number]/[facility] #: [id number] MTDD
[2018-12-23] MEDS: Acetaminophen TAB* 325 MG PO PRN ×2 (03:25→19:13)
[2018-12-23 06:37] LABS: ABS Basophils 0.1 10^3/ul (0-0.2); ABS Lymphocytes 1.8 10^3/ul (1.0-4.8); ABS Monocytes 0.9 10^3/ul (0-0.8); ABS Neutrophils 9.4 10^3/ul (1.5-7.7); Eosinophil % 0.3 %; Hematocrit 33 % (35-47); Hematocrit for Retic CNT 33 % (35-47); Hemoglobin 10.9 g/dL (12.0-16.0); Lymphocyte % 14.7 %; Mean Corpuscular HGB Conc 34 g/dL (31-36); Mean Corpuscular Hemoglobin 28 pg (27-31); Mean Corpuscular Volume 85 fL (80-97); Mean Platelet Volume 7.1 fL (7.4-10.4); Nucleated Red Blood Cells % 0.1; Platelet Count 325 10^3/uL (150-450); RBC Retic Count 3.84 10^6/uL (3.70-4.87); Red Blood Count 3.84 10^6 /uL (3.70-4.87); Red Cell Distribution Width 13 % (10.5-15); White Blood Count 12.2 10^3/uL (3.5-10.8)
[2018-12-23 06:38] LABS: Anion Gap 8 mmol/L (2-11); BUN/Creatinine Ratio 3.5 (8-20); Blood Urea Nitrogen 4 mg/dL (6-24); CO2 Carbon Dioxide 26 mmol/L (22-32); Calcium 7.9 mg/dL (8.6-10.3); Chloride 105 mmol/L (101-111); EGFR African American 67.5 (>60); EGFR Non-African American 55.8 (>60); Glucose 94 mg/dL (70-100); Potassium 3.8 mmol/L (3.5-5.0); Sodium 139 mmol/L (135-145)
[2018-12-23 06:41] LABS: Corrected Retic Count 1.4 % (0.5-1.5); Immature Retic Fraction 0.37
[2018-12-23 06:47] LABS: Total Iron Binding Capacity 274 mcg/dL (250-450); Transferrin 196 mg/dL (203-362)
[2018-12-23 07:03] LABS: Ferritin 66.1 ng/mL (11-307)
[2018-12-23 07:04] LABS: % Iron Saturation 6 % (15-55); Iron < 17 ug/dL (50-212)
[2018-12-23] MEDS: Pantoprazole TAB * 40 MG TAB PO SCH (10:04)
[2018-12-23] MEDS: Propranolol TAB* 20 MG PO SCH (10:05)
[2018-12-23] MEDS: BuPROPion XL* 300 MG TAB.XL PO SCH (10:05)
[2018-12-23] MEDS: Venlafaxine EXT RELEASE CAP* 75 MG PO SCH (10:05)
[2018-12-23] MEDS: busPIRone TAB* 10 MG PO SCH (10:05)
[2018-12-23] MEDS: Ondansetron INJ* 2 MG/ML VIAL IV PRN (10:12)
[2018-12-23] MEDS: NORETHINDR PO SCH (10:13)
[2018-12-23] MEDS: ETH ESTRADIOL PO SCH (10:13)
[2018-12-23] MEDS: NS 0.9% 1000 ML** 1,000 ML IV SCH (11:20)
[2018-12-23] MEDS ORDERED: Metoclopramide IV* 5 MG/ML 2 ML VIAL IV SLOW PU ONE (13:16)
--- NOTE | 2018-12-23 14:15 | PN ---
Progress Note - Progress Note Date of Service: 12/23/18 SOAP: Subjective: CC: fever HPI: 28 yo woman with a month of sore throat, fever, diffuse abd pain, diarrhea , arthralgia of knees and ankles. Posterior pharynx ulcer, no genital ulcer. Colonoscopy yesterday normal. Abd pain and nausea now with loose stools today. No flank pain or dysuria. Objective: Vital Signs Temp 36.2 C 12/23/18 07:32 Pulse 86 12/23/18 07:32 Resp 18 12/23/18 07:32 BP 109/63 12/23/18 07:32 Pulse Ox 98 12/23/18 07:32 Intake & Output 12/22/18 12/23/18 12/23/18 18:59 06:59 18:59 Intake Total 650 1955 1420 Output Total 0 0 Balance 650 1955 1420 Intake: IV Fluids 50 995 950 Oral 600 960 470 Output: Urine 0 0 Other: # Bowel Movements 1 0 Estimated Stool Amount Medium Gen:awake, no distress HEENT: no thrush; posterior pharynx erythema and 2 mm ulcer on right Neck: no mass LN: no palpable nodes Heart: RRR no murmur Lungs:CTA BL Abd:+BS NTND soft, no flank tenderness Skin: erythematous plaques face and extensor surface of elbows MSK: no spine tenderness or joint effusion Laboratory Results - last 24 hr 12/21/18 12/23/18 12/23/18 08:53 06:13 06:13 WBC 12.2 H RBC 3.84 RBC (Retic) 3.84 Hgb 10.9 L Hct 33 L HCT (Retic) 33 L MCV 85 MCH 28 MCHC 34 RDW 13 Plt Count 325 MPV 7.1 L Neut % (Auto) 76.9 Lymph % (Auto) 14.7 Frederick % (Auto) 7.3 Eos % (Auto) 0.3 Baso % (Auto) 0.8 Absolute Neuts (auto) 9.4 H Absolute Lymphs (auto) 1.8 Absolute Monos (auto) 0.9 H Absolute Eos (auto) 0.0 Absolute Basos (auto) 0.1 Absolute Nucleated RBC 0.0 Nucleated RBC % 0.1 Retic Count, Calc 1.9 H Corrected Retic Count 1.4 Retic Shift Factor 1.5 Retic Production Index 0.90 Immature Retic Fraction 0.37 Mean Retic Volume 92.8 Sodium 139 Potassium 3.8 Chloride 105 Carbon Dioxide 26 Anion Gap 8 BUN 4 L Creatinine 1.15 H Est GFR ( Amer) 67.5 Est GFR (Non-Af Amer) 55.8 BUN/Creatinine Ratio 3.5 L Glucose 94 Calcium 7.9 L Iron < 17 L TIBC 274 % Saturation 6 L Unsat Iron Binding < 259 Transferrin 196 L Ferritin 66.1 C.trachomatis (Amp Det) Negative N.gonorrhoeae (Amp Det) Negative Assessment: 1. Fever, diarrhea, arthralgia, oral ulcer, pharyngitis ?acute viral ie Coxsackievirus, EBV, CMV, becoming less likely bacterial ?autoimmune or autoinflammatory or acute viral infection with reactive process. Oral ulcer, no hx genital ulcer ?Behcet's Plan: 1. continue off of antibiotics. EBV and CMV serology as well as Syphilis IgG pending. Will add Coxsackievirus serology.
[2018-12-23] MEDS ORDERED: Lorazepam PYXIS KEY PRN (15:16)
--- NOTE | 2018-12-23 16:37 | PN ---
Subjective Date of Service: 12/23/18 Interval History: Diarrhea - liquid, 4 times since waking up, did have episode overnight as well Vomiting throughout the day. Little help from zofran or reglan. Compazine was helpful but was painful on administration Joint pain only in ankles, knees are better +throat pain and cough General malaise and decreased PO intake Fevers have continued Objective Active Medications: Acetaminophen (Tylenol Tab*) 650 mg PO Q4H PRN PRN Reason: FEVER/PAIN Last Admin: 12/23/18 03:25 Dose: 650 mg Bupropion HCl (Bupropion Xl*) 300 mg PO DAILY [facility] Last Admin: 12/23/18 10:05 Dose: 300 mg Buspirone HCl (Buspar Tab*) 10 mg PO DAILY [facility] Last Admin: 12/23/18 10:05 Dose: 10 mg Ethinyl Estradiol/Norethindrone (Lo Loestrin Fe (Nf)) 1 tab PO DAILY [facility] Last Admin: 12/23/18 10:13 Dose: Not Given Sodium Chloride (Ns 0.9% 1000 Ml) 1,000 mls @ 75 mls/hr IV PER RATE [facility] Last Admin: 12/23/18 11:20 Dose: 75 mls/hr Lorazepam (Ativan Inj*) 0.5 mg IV PUSH Q8H PRN PRN Reason: nausea Miscellaneous (Ativan Pyxis Gonzalez) 1 ea N/A .ATIVAN IV GONZALEZ PRN PRN Reason: PYXIS GONZALEZ Ondansetron HCl (Zofran Inj*) 4 mg IV Q4H PRN PRN Reason: NAUSEA Last Admin: 12/23/18 10:12 Dose: 4 mg Pantoprazole Sodium (Protonix Tab*) 40 mg PO DAILY [facility] Last Admin: 12/23/18 10:04 Dose: 40 mg Propranolol HCl (Inderal Tab*) 20 mg PO DAILY [facility] Last Admin: 12/23/18 10:05 Dose: 20 mg Venlafaxine HCl (Effexor Xr Cap*) 150 mg PO DAILY [facility] Last Admin: 12/23/18 10:05 Dose: 150 mg Vital Signs - 8 hr 12/23/18 11:14 Temperature 99.9 F Pulse Rate 94 Respiratory 18 Rate Blood Pressure 97/64 (mmHg) O2 Sat by Pulse 98 Oximetry Oxygen Devices in Use Now: None Appearance: NAD Eyes: No Scleral Icterus, PERRLA Ears/Nose/Mouth/Throat: Mucous Membranes Moist, - - ulcer on right palatine tonsill Neck: NL Appearance and Movements; NL JVP, Trachea Midline Respiratory: Symmetrical Chest Expansion and Respiratory Effort, Clear to Auscultation Cardiovascular: NL Sounds; No Murmurs; No JVD, RRR Abdominal: - - +bs, ND, mildly TTP throughout Extremities: No Edema, - - area of tenderness over flexor surface, medial left foot Skin: - - psoriasis on face, patchy Neurological: Alert and Oriented x 3 Result Diagrams: 12/23/18 06:13 12/23/18 06:13 Microbiology and Other Data: Microbiology 12/21/18 11:34 Stool Gross Appearance - Final Stool Stool Lactoferrin - Final Cryptosporidium/Giardia - Final Neg Cryptosporidium/Giardia 12/21/18 08:53 Urine Culture - Final Urine 12/21/18 09:03 Aerobic Blood Culture - Preliminary Blood Venous No Growth Day 1 Anaerobic Blood Culture - Preliminary No Growth Day 1 12/21/18 09:03 Aerobic Blood Culture - Preliminary Blood Venous No Growth Day 1 Anaerobic Blood Culture - Preliminary No Growth Day 1 12/21/18 11:34 Stool Gross Appearance - Final Stool C. difficile DNA Amplification - Final 027 Presumptive NEGATIVE Toxigenic C.diff NEGATIVE 12/21/18 11:34 Stool Gross Appearance - Final Stool Assess/Plan/Problems-Billing Assessment: 28 yo F h/o anxiety/depression presents with 1 month N/V diarrhea, fatigue, LE joint pains found on CT with e/o colitis and/or pyelonephritis - Patient Problems (1) Fever Comment: appreciate ID c/s EBV and CMV titers pending and joselito added today holding CTX, restart if change in clinical status no symptoms of UTI and no bacteria in urine/culture negative - WBC noted on UA blood cxs negative no colitis on flex sig Unclear etiology but constillation of findings and elevated CRP also concerning for rheumatologic etiology. I have placed a consult for rheumatology as well gastroenteritis with N/V diarrhea in differential but fever and crp seem out of proportion (2) Depression Comment: bupoprion buspar (3) Colitis Comment: no e/o colitis on flex sig biopsies taken and results pending (4) Nausea Comment: c/w zofran ad low dose ativan Q8 if needed
[2018-12-23] MEDS ORDERED: acetaZOLAMIDE VIAL* 500 MG in NS 0.9% 50 ML* 50 ML IVPB ONE (16:39)
--- NOTE | 2018-12-23 18:46 | CONSULT ---
Consult Consult: Ms. Whitman is a 28 year old woman who presents with refractory nausea and vomiting in the setting of markedly elevated inflammatory markers, psoriasis, arthralgias, apthous ulcers and mucosal GI thickening. Consider a possible connective tissue disorder and/or spondyloarthropathy. Given GI symptoms consider an underlying inflammatory GI process. Will check a connective tissue panel, celiac panel and [id number] among other serologies. Check ANCA in light of renal insufficiency, which persists despite hydration and abnormal urinary sediment. Will follow; thanks!
[2018-12-23 21:02] LABS: Thyroid Peroxidase Antibodies 0.6 IU/mL (<9)
[2018-12-23 21:47] LABS: B garinii/B afzelii PCR Negative (Negative); B mayonii PCR Negative (Negative)
--- NOTE | 2018-12-23 22:00 | CONS ---
CONSULTATION NOTE: DATE OF CONSULT: 12/23/18 CONSULTING PHYSICIAN: Dr. Elton Ames. REASON FOR CONSULT: Elevated inflammatory markers in the setting of psoriasis. Evaluate for inflammatory etiologies. CHIEF COMPLAINT: Elevated inflammatory markers as noted above. HISTORY OF PRESENT ILLNESS: Ms. Whitman is a pleasant 28-year-old woman with a longstanding history of psoriasis. She has been working with dermatology regarding extensive psoriasis and several months ago had tried Otezla for her underlying psoriasis, but did not tolerate it well as it exacerbated her underlying depression. She, therefore, stopped it and has been treating her psoriasis over the last 5 to 6 months only with tanning beds and occasional topical therapy; however, she continues to have significant psoriasis. In terms of her more recent history, she has had increasing GI symptoms as well as diarrhea, nausea, and trouble tolerating food in general. It has been present over several months, but significantly worsened over the last month with increasing nausea, vomiting, diarrhea and now she has low-grade fevers. She had been extremely tired as well in addition to a low-grade fever, which now has been spiking to a higher grade. She has also continued to have extensive diarrhea. Certain things she eats exacerbate it more, but nothing seems to make it much better. In terms of her evaluation in the hospital, she was noted to have markedly elevated inflammatory markers. She has been seen by infectious disease, who has been evaluating for any kind of acute inflammatory process, but no definitive infection has been found so far. She continues to have GI symptoms, although her presenting complaint of back pain has improved during her hospitalization. She does, however, have increasing arthralgias, but no joint swelling, as well as what appears to be erythema nodosum on the left medial ankle region where it has been painful, and also there has been mild pain and discomfort in both ankles and to a lesser extent her knees. She has not had any hand synovitis or swelling of the joints, however. As noted above, she has had a fever with temperature between 101 and 103 with tachycardia and therefore, she had been admitted. She also had nausea, vomiting , and difficulty tolerating foods. She also had some complaints of a mild sore throat, possibly acute laryngitis. She has also had an aphthous ulcer, which has been slightly painful. While her creatinine was slightly elevated, it was felt to be possibly prerenal and she is receiving hydration to improve this as well as her other conditions. A CT of the pelvic region suggested a wedge- shaped enhancement in the upper pole of the left kidney with mild enlargement of the left kidney and possible pyelonephritis of the left kidney should be considered with nonobstructing calculi noted in both kidneys. Additionally, there might be some mucosal thickening in the descending colon, sigmoid colon, for which underlying colitis is not excluded. However, a limited sigmoidoscopy did not show any evidence of colitis or inflammatory bowel disease. She also had an EKG which showed sinus tachycardia with a heart rate of around 110. There was no evidence of ischemia. Currently, she continues to have some fevers despite hydration, admission, and supportive care. She also continues to have arthralgias. PAST MEDICAL HISTORY: Notable for: 1. Psoriasis. 2. Depression. 3. Anxiety. HOME MEDICATIONS: Include: 1. BuSpar. 2. Propranolol. 3. Venlafaxine 150 mg daily. 4. Bupropion 300 mg daily. 5. Ondansetron 4 mg every 6 hours as needed. 6. Omeprazole. 7. Norethindrone estradiol 1 tablet daily. She has not had any recent change in terms of her medications and she has not been taking any other [id number]-[id number] supplements. FAMILY HISTORY: Her parents are in good health. No immediate family history of an autoimmune condition. SOCIAL HISTORY: No prior tobacco use or illegal drug use. She only occasionally drinks alcohol and she does try to exercise and go to a tanning [employer] on a regular basis. REVIEW OF SYSTEMS: Skin: Notable for the extensive psoriasis, which has been improving recently. GI: As noted above. Musculoskeletal: Arthralgias in the lower extremity primarily, as noted above. ENT: Aphthous ulcers, as noted above. Pulmonary: She has had a mild cough, but her chest x-ray was nonrevealing and otherwise, she has no complaints of any acute shortness of breath. Cardiac: Denies chest wall pain. Endocrine: Denies glandular swelling. Lymphatic: She does have some subjective swelling in the lymph node region in her cervical region around her neck, but no definite discrete nodule that has been elevated. All other 14-point review of systems were reviewed and were, otherwise, negative. PHYSICAL EXAM: On physical exam, she had a temperature of 99.9, pulse rate of 94, respiratory rate of 18, blood pressure 97/64, O2 sat 98% on room air. In general, she is pleasant, in no acute distress, able to sit up and converse, but appeared to be somewhat fatigued and slightly dehydrated. HEENT: Eyes: No scleral icterus. Pupils equal, round, and reactive to light and accommodation. Mucous membranes are moist. There is an ulcer in the right palatine tonsil. Neck was normal appearance and movement. There was a mild amount of cervical adenopathy, but no discrete node was appreciated. ENT: Trachea was midline. Vascular: No JVP elevation. Normal jugular venous distention. Respiratory: Symmetric chest expansion and respiratory effort. Pulmonary: Clear to auscultation bilaterally. Cardiovascular Exam: Normal breath sounds. No murmurs, rubs, or gallops. No JVP elevation. Regular rate and rhythm. Abdomen: Soft and nontender. Positive bowel sounds, except for minimal tenderness in the lower quadrants. Extremities: No edema. On skin exam, there was some scarring on the lower extremity with patchy areas of psoriasis on her elbows in discrete patterns as well as the lower legs. There appeared to be an erythematous macule over the dorsum of the left foot which appeared to be possibly erythema nodosum, but it had faint borders to it. Neurologic: Alert and oriented x3. Motor strength was 5/5 in the upper and lower extremities. No edema. : No CVA tenderness. DIAGNOSTIC STUDIES/LAB DATA: Labs: She had a white count of 12.2, hemoglobin 10.9, BUN 4, creatinine 1.15. Stool: Gross appearance was within normal limits on stool exam with negative cryptosporidium, negative giardia. She had an initial white count of 12.7. Her serum creatinine was 1.16, which improved to 1.01 on 12/22/18, but now is 1.15. Her iron level was less than 17. AST was low at 10, but her C-reactive protein was markedly elevated at 159. Lipase was normal. B12 was 341. Urinalysis showed 1+ protein and trace ketones and 1 + blood. Serology is notable for negative syphilis, negative C. trachomatis, and negative influenza screen. She did have a colonic biopsy showing benign colonic mucosa with no significant pathologic abnormalities, no evidence of microscopic colitis. She also had a chest x-ray which showed no acute cardiopulmonary disease and a CT scan with findings as noted above with some mucosal thickening of the descending colon and sigmoid colon. ASSESSMENT: Ms. Whitman is a 28-year-old woman with: 1. Nausea and vomiting in the setting of diffuse arthralgias. 2. Markedly elevated inflammatory markers. 3. Proteinuria with a wedge-shaped enhancement defect of the upper pole of the left kidney. 4. Mucosal thickening in the descending colon and sigmoid colon, but no definitive evidence of inflammatory bowel disease. PLAN: 1. At this point in time, she is continuing hydration and supportive care for her acute presentation of nausea and vomiting. We should consider, especially that as some of her symptoms preceding this have been indolent but progressive, the possibility of an underlying autoimmune or connective tissue disorder contributing to her symptoms. To that end, I have requested a connective tissue panel, rheumatoid factor, and HLA-B27. Given her gastrointestinal as well as cutaneous manifestations, I have requested a celiac panel and she does appear to have erythema nodosum, although it is very faint, I would check an ASO titer, especially given her subjective upper respiratory complaints with mild sore throat. So, I would check an ASO titer as well. At this point in time, I would avoid corticosteroids until we have a more definitive diagnosis. 2. In terms of her underlying psoriasis, she may benefit from a novel immunomodulating therapy, but overall her psoriasis is improving. 3. In terms of her colitis, which is possible, she may benefit from a more extended workup in terms of her GI symptoms as well as findings on CT scan including an upper and lower endoscopy, but this may possibly be done as an outpatient as she improves. We will continue to follow daily. [id number]/CPS #: [id number] DEB
[2018-12-24] MEDS: LORazepam INJ* 2 MG/ML 1 ML VIAL IV PUSH PRN ×3 (00:08→15:44)
[2018-12-24] MEDS: Ondansetron INJ* 2 MG/ML VIAL IV PRN ×4 (02:40→15:44)
[2018-12-24] MEDS: Acetaminophen TAB* 325 MG PO PRN ×2 (02:43→19:34)
[2018-12-24] MEDS: NS 0.9% 1000 ML** 1,000 ML IV SCH ×2 (03:23→16:44)
[2018-12-24 06:28] LABS: ABS Basophils 0.1 10^3/ul (0-0.2); ABS Lymphocytes 1.7 10^3/ul (1.0-4.8); ABS Monocytes 0.9 10^3/ul (0-0.8); ABS Neutrophils 9.3 10^3/ul (1.5-7.7); Eosinophil % 0.4 %; Hematocrit 32 % (35-47); Hemoglobin 10.5 g/dL (12.0-16.0); Lymphocyte % 14.4 %; Mean Corpuscular HGB Conc 33 g/dL (31-36); Mean Corpuscular Hemoglobin 28 pg (27-31); Mean Corpuscular Volume 84 fL (80-97); Mean Platelet Volume 7.2 fL (7.4-10.4); Platelet Count 336 10^3/uL (150-450); Red Blood Count 3.77 10^6 /uL (3.70-4.87); Red Cell Distribution Width 13 % (10.5-15); White Blood Count 12.1 10^3/uL (3.5-10.8)
[2018-12-24 06:49] LABS: BUN/Creatinine Ratio 4.4 (8-20); Calcium 8.1 mg/dL (8.6-10.3); EGFR African American 89.6 (>60); Potassium 3.3 mmol/L (3.5-5.0)
[2018-12-24 09:11] LABS: Cytomegalovirus IgG Antibody Negative (Negative); EBV Capsid Ag IgG Ab Positive (Negative); EBV Capsid Ag IgM Ab Negative (Negative); Epstein-Barr Nuclear Antigen Positive (Negative)
--- NOTE | 2018-12-24 09:41 | PN ---
Progress Note - Progress Note Date of Service: 12/24/18 SOAP: Subjective: CC: Nausea HPI: Ms. Whitman is a 28 yo female with PMH significant for psoriasis, depression and anxiety. She reports fever, sore throat, diffuse ABD pain, nausea, and dry heaves. No loose stools since yesterday. Denies urinary symptoms. She has not tried to eat today due to the nausea. Objective: Vital Signs - 8 hr 12/24/18 12/24/18 12/24/18 02:42 03:27 07:38 Temperature 100.0 F 98.1 F Pulse Rate 102 94 Respiratory 16 18 16 Rate Blood Pressure 112/65 89/48 (mmHg) O2 Sat by Pulse 99 98 Oximetry Physical Exam: General: NAD, laying in bed Neurological: Alert and Oriented x4 HEENT: Posterior pharynx erythema and ulcer on the right tonsil and 2 small areas of white exudate Cardiovascular: Heart rate regular Respiratory: Lung sounds clear Abdominal: Bowel sounds present; ABD soft, non distended, and diffuse tenderness Skin: No rash Laboratory Results - last 24 hr 12/21/18 12/21/18 12/22/18 09:03 11:34 06:47 B. burgdorferi (PCR) Negative Lyme DNA Comment See comment B.garinii/afzelii PCR Negative B. mayonii (PCR) Negative CMV IgG Ab Negative CMV IgM Ab Negative EBV Capsid Ag IgG Ab Positive EBV Capsid Ag IgM Ab Negative EBV Nuclear Antigen Positive EBV Interpretation See comment Parasite Exam See comment 12/22/18 12/23/18 12/23/18 06:47 19:37 19:37 Rheumatoid Factor < 10 Thyroglobulin Antibody 0.0 Thyroid Peroxidase Ab 0.60 Syphilis IgG Antibody Negative 12/24/18 12/24/18 06:06 06:06 WBC 12.1 H RBC 3.77 Hgb 10.5 L Hct 32 L MCV 84 MCH 28 MCHC 33 RDW 13 Plt Count 336 MPV 7.2 L Neut % (Auto) 76.8 Lymph % (Auto) 14.4 Emery % (Auto) 7.8 Eos % (Auto) 0.4 Baso % (Auto) 0.6 Absolute Neuts (auto) 9.3 H Absolute Lymphs (auto) 1.7 Absolute Monos (auto) 0.9 H Absolute Eos (auto) 0.0 Absolute Basos (auto) 0.1 Absolute Nucleated RBC 0.0 Nucleated RBC % 0.0 Sodium 137 Potassium 3.3 L Chloride 103 Carbon Dioxide 25 Anion Gap 9 BUN 4 L Creatinine 0.90 Est GFR ( Amer) 89.6 Est GFR (Non-Af Amer) 74.0 BUN/Creatinine Ratio 4.4 L Glucose 94 Calcium 8.1 L Microbiology 12/21/18 09:03 Aerobic Blood Culture - Preliminary Blood Venous No Growth Day 3 Anaerobic Blood Culture - Preliminary No Growth Day 3 12/21/18 09:03 Aerobic Blood Culture - Preliminary Blood Venous No Growth Day 3 Anaerobic Blood Culture - Preliminary No Growth Day 3 12/21/18 11:34 Stool Culture - Final Stool Stool Gross Appearance - Final Shiga Toxin I & II - Final Negative Shiga Toxin 1 & 2 12/21/18 11:34 Stool Gross Appearance - Final Stool Stool Lactoferrin - Final Cryptosporidium/Giardia - Final Neg Cryptosporidium/Giardia 12/21/18 08:53 Urine Culture - Final Urine 12/21/18 11:34 Stool Gross Appearance - Final Stool C. difficile DNA Amplification - Final 027 Presumptive NEGATIVE Toxigenic C.diff NEGATIVE Assessment: 1. Fever, diarrhea, arthralgia, oral ulcer, and pharyngitis. Differential Diagnosis: Viral illness, bacterial infection, autoimmune, or autoinflammatory. Suspect acute viral illness. Syphilis IgG is negative. EBV IgG positive, IgM is negative. CMV IgG and IgM negative. Coxsackievirus serology pending. Urine culture with no growth. Continues to have intermittent low grade fevers. Mild leukocytosis. Blood cultures with no growth on day 3. Plan: Continue to hold antibiotics. Will check a rapid strep test today. Provide supportive care.
[2018-12-24] MEDS: ETH ESTRADIOL PO SCH (12:23)
[2018-12-24] MEDS: NORETHINDR PO SCH (12:23)
[2018-12-24] MEDS: Venlafaxine EXT RELEASE CAP* 75 MG PO SCH (12:24)
[2018-12-24] MEDS: Propranolol TAB* 20 MG PO SCH (12:24)
[2018-12-24] MEDS: BuPROPion XL* 300 MG TAB.XL PO SCH (12:24)
[2018-12-24] MEDS: busPIRone TAB* 10 MG PO SCH (12:24)
[2018-12-24] MEDS: Pantoprazole TAB * 40 MG TAB PO SCH (12:24)
[2018-12-24 12:30] LABS: Rapid Strep Molecular Negative (Negative)
[2018-12-24] MEDS ORDERED: Potassium Chlor TAB* 20 MEQ TAB.ER PO ONE (14:55)
--- NOTE | 2018-12-24 17:52 | PN ---
Subjective Date of Service: 12/24/18 Interval History: Diarrhea resolved but nausea continues. Unable to eat because thought of food causes nausea Pain in ankles had resolved but now returned and area on flexor surface of right ankle is more painful Heels tingle when walking now Throat pain present Objective Active Medications: Acetaminophen (Tylenol Tab*) 650 mg PO Q4H PRN PRN Reason: FEVER/PAIN Last Admin: 12/24/18 02:43 Dose: 650 mg Bupropion HCl (Bupropion Xl*) 300 mg PO DAILY [facility] Last Admin: 12/24/18 12:24 Dose: 300 mg Buspirone HCl (Buspar Tab*) 10 mg PO DAILY [facility] Last Admin: 12/24/18 12:24 Dose: 10 mg Ethinyl Estradiol/Norethindrone (Lo Loestrin Fe (Nf)) 1 tab PO DAILY [facility] Last Admin: 12/24/18 12:23 Dose: Not Given Sodium Chloride (Ns 0.9% 1000 Ml) 1,000 mls @ 75 mls/hr IV PER RATE [facility] Last Admin: 12/24/18 16:44 Dose: 75 mls/hr Lorazepam (Ativan Inj*) 0.5 mg IV PUSH Q6H PRN PRN Reason: nausea Last Admin: 12/24/18 15:44 Dose: 0.5 mg Miscellaneous (Ativan Pyxis Gonzalez) 1 ea N/A .ATIVAN IV GONZALEZ PRN PRN Reason: PYXIS GONZALEZ Ondansetron HCl (Zofran Inj*) 4 mg IV Q4H PRN PRN Reason: NAUSEA Last Admin: 12/24/18 15:44 Dose: 4 mg Pantoprazole Sodium (Protonix Tab*) 40 mg PO DAILY [facility] Last Admin: 12/24/18 12:24 Dose: 40 mg Propranolol HCl (Inderal Tab*) 20 mg PO DAILY [facility] Last Admin: 12/24/18 12:24 Dose: 20 mg Venlafaxine HCl (Effexor Xr Cap*) 150 mg PO DAILY [facility] Last Admin: 12/24/18 12:24 Dose: 150 mg Vital Signs - 8 hr 12/24/18 12/24/18 12/24/18 12:03 12:24 15:30 Temperature 98.4 F 98.5 F Pulse Rate 113 96 Respiratory 14 18 19 Rate Blood Pressure 113/72 117/71 (mmHg) O2 Sat by Pulse 100 100 Oximetry 12/24/18 12/24/18 15:44 17:23 Temperature Pulse Rate Respiratory 16 18 Rate Blood Pressure (mmHg) O2 Sat by Pulse Oximetry Oxygen Devices in Use Now: None Appearance: fatigued but not distressed Eyes: No Scleral Icterus, PERRLA Ears/Nose/Mouth/Throat: Mucous Membranes Moist, - - right palantine tonsill aphthous ulcer, small amount of exudate Neck: NL Appearance and Movements; NL JVP, Trachea Midline Respiratory: Symmetrical Chest Expansion and Respiratory Effort, Clear to Auscultation Cardiovascular: NL Sounds; No Murmurs; No JVD, RRR Abdominal: - - ND,mild TTP, +bs Lymphatic: No Cervical Adenopathy Extremities: - - left flexor surface of foot with expanding erythema and TTP over medial aspect Skin: - - psoriasis Neurological: Alert and Oriented x 3 Result Diagrams: 12/24/18 06:06 12/24/18 06:06 Microbiology and Other Data: Microbiology 12/21/18 11:34 Stool Gross Appearance - Final Stool Stool Lactoferrin - Final Cryptosporidium/Giardia - Final Neg Cryptosporidium/Giardia 12/21/18 08:53 Urine Culture - Final Urine 12/21/18 09:03 Aerobic Blood Culture - Preliminary Blood Venous No Growth Day 1 Anaerobic Blood Culture - Preliminary No Growth Day 1 12/21/18 09:03 Aerobic Blood Culture - Preliminary Blood Venous No Growth Day 1 Anaerobic Blood Culture - Preliminary No Growth Day 1 12/21/18 11:34 Stool Gross Appearance - Final Stool C. difficile DNA Amplification - Final 027 Presumptive NEGATIVE Toxigenic C.diff NEGATIVE 12/21/18 11:34 Stool Gross Appearance - Final Stool Assess/Plan/Problems-Billing Assessment: 28 yo F h/o anxiety/depression presents with 1 month N/V diarrhea, fatigue, LE joint pains found on CT with e/o colitis and/or pyelonephritis - Patient Problems (1) Fever Comment: appreciate ID, GI and rheum c/s EBV and CMV titers w/o evidence of current infection. Coxackie virus pending Most localizing symptom is in GI tract with e/o colitis (but not on flex sig) continued nausea and vomiting Reconsult GI tomorrow and for EGD - celiacs is higher on differential but not all symptoms fit this clinical picture holding CTX, restart if change in clinical status no symptoms of UTI and no bacteria in urine/culture negative - WBC noted on UA - repeat UA today blood cxs negative no colitis on flex sig Labs sent by rheumatology cs pending gastroenteritis with N/V diarrhea in differential but fever and crp seem out of proportion (2) Depression Comment: bupoprion buspar (3) Colitis Comment: no e/o colitis on flex sig biopsies taken and results pending (4) Nausea Comment: c/w zofran ad low dose ativan Q6 which seems to help the most
[2018-12-24 22:01] LABS: Urine Appearance Clear; Urine Bacteria Absent (Absent); Urine Bilirubin Negative (Negative); Urine Blood 2+ (Negative); Urine Color Straw; Urine Glucose Negative (Negative); Urine Ketones 1+ (Negative); Urine Nitrite Negative (Negative); Urine Protein Negative (Negative); Urine Red Blood Cell 2+(6-10/hpf) (Absent); Urine Specific Gravity 1.006 (1.010-1.030); Urine Squamous Epithelial Cell Present (Absent); Urine Urobilinogen Negative (Negative); Urine White Blood Cell 2+(11-20/hpf) (Absent)
[2018-12-25] MEDS: LORazepam INJ* 2 MG/ML 1 ML VIAL IV PUSH PRN ×2 (01:18→09:59)
[2018-12-25] MEDS: Ondansetron INJ* 2 MG/ML VIAL IV PRN ×3 (06:50→21:34)
[2018-12-25 06:53] LABS: ABS Basophils 0.1 10^3/ul (0-0.2); ABS Lymphocytes 1.3 10^3/ul (1.0-4.8); ABS Monocytes 0.8 10^3/ul (0-0.8); ABS Neutrophils 10.6 10^3/ul (1.5-7.7); Eosinophil % 0.3 %; Hematocrit 32 % (35-47); Hemoglobin 10.7 g/dL (12.0-16.0); Lymphocyte % 9.9 %; Mean Corpuscular HGB Conc 34 g/dL (31-36); Mean Corpuscular Hemoglobin 28 pg (27-31); Mean Corpuscular Volume 84 fL (80-97); Platelet Count 371 10^3/uL (150-450); Red Cell Distribution Width 13 % (10.5-15); White Blood Count 12.8 10^3/uL (3.5-10.8)
[2018-12-25] MEDS: NS 0.9% 1000 ML** 1,000 ML IV SCH ×2 (06:53→16:36)
[2018-12-25 07:19] LABS: BUN/Creatinine Ratio 3.4 (8-20); C Reactive Protein 197.42 mg/L (<8.01); Calcium 8.3 mg/dL (8.6-10.3); EGFR African American 91.9 (>60); Potassium 3.6 mmol/L (3.5-5.0)
[2018-12-25] MEDS: busPIRone TAB* 10 MG PO SCH (07:52)
[2018-12-25] MEDS: NORETHINDR PO SCH (07:52)
[2018-12-25] MEDS: Pantoprazole TAB * 40 MG TAB PO SCH (07:52)
[2018-12-25] MEDS: ETH ESTRADIOL PO SCH (07:52)
[2018-12-25] MEDS: Venlafaxine EXT RELEASE CAP* 75 MG PO SCH (07:53)
[2018-12-25] MEDS: BuPROPion XL* 300 MG TAB.XL PO SCH ×2 (07:53→16:51)
[2018-12-25] MEDS: Propranolol TAB* 20 MG PO SCH (09:31)
--- NOTE | 2018-12-25 12:56 | PN ---
Subjective - Subjective Date of Service: 12/25/18 - Chief Complaint: elevated inflammatory markers, polyarthralgias, nausea Active Problems: Active Problems Colitis (Acute) K52.9 no e/o colitis on flex sig biopsies taken and results pending Depression (Acute) F32.9 bupoprion buspar Fever (Acute) R50.9 Work up pending no colitis on flex sig Labs sent reveal normal TPO antibodies gastroenteritis with N/V diarrhea in differential but fever and crp seem out of proportion Nausea (Acute) R11.0 Per GI Current Medications: Current Medications Acetaminophen (Tylenol Tab*) 650 mg PO Q4H PRN PRN Reason: FEVER/PAIN Last Admin: 12/24/18 19:34 Dose: 650 mg Bupropion HCl (Bupropion Xl*) 300 mg PO DAILY [facility] Last Admin: 12/25/18 07:53 Dose: Not Given Buspirone HCl (Buspar Tab*) 10 mg PO DAILY [facility] Last Admin: 12/25/18 07:52 Dose: Not Given Ethinyl Estradiol/Norethindrone (Lo Loestrin Fe (Nf)) 1 tab PO DAILY [facility] Last Admin: 12/25/18 07:52 Dose: Not Given Sodium Chloride (Ns 0.9% 1000 Ml) 1,000 mls @ 75 mls/hr IV PER RATE [facility] Last Admin: 12/25/18 06:53 Dose: 75 mls/hr Lorazepam (Ativan Inj*) 0.5 mg IV PUSH Q6H PRN PRN Reason: nausea Last Admin: 12/25/18 09:59 Dose: 0.5 mg Miscellaneous (Ativan Pyxis Gonzalez) 1 ea N/A .ATIVAN IV GONZALEZ PRN PRN Reason: PYXIS GONZALEZ Ondansetron HCl (Zofran Inj*) 4 mg IV Q4H PRN PRN Reason: NAUSEA Last Admin: 12/25/18 12:02 Dose: 4 mg Pantoprazole Sodium (Protonix Tab*) 40 mg PO DAILY [facility] Last Admin: 12/25/18 07:52 Dose: Not Given Propranolol HCl (Inderal Tab*) 20 mg PO DAILY [facility] Last Admin: 12/25/18 09:31 Dose: 20 mg Venlafaxine HCl (Effexor Xr Cap*) 150 mg PO DAILY [facility] Last Admin: 12/25/18 07:53 Dose: Not Given - Review of Systems General Comments: Generally, Ms Whitman notes that her joint symptoms are worsening. She has had significant pain and discomfort in her knees and ankles and feet; she continues to not tolerate oral intake and she is now scheduled for an EGD. It is hard to mobilize given her joint symptoms Constitutional Symptoms: Yes: Fatigue, Fever, No: Weight Gain, Unexplained Falls Dermatology: Skin Lesions: Yes - mild redness over the dorsum of her left foot HEENT: Yes Normal Eyes: Positive: Normal Thyroid: Positive: Normal Pulmonary: Positive: Normal Gastroenterology: Positive: Nausea, Change in Bowel Habits Musculoskeletal: Positive: Joint Pain, Joint Stiffness Endocrinology: Positive: Normal Psychiatry: Positive: Anxiety Home Medications: Home Medications Medication Instructions Recorded Confirmed Type Norethindrone-E.estradiol-Iron 1 tab PO DAILY 06/19/18 12/21/18 History [Yoselin 24 Fe 1 mg-20 Mcg Tablet] Propranolol TAB* [Inderal TAB*] 20 mg PO DAILY 06/19/18 12/21/18 History Venlafaxine TAB (NF) [Effexor TAB 150 mg PO DAILY 06/19/18 12/21/18 History (NF)] buPROPion TAB* [Wellbutrin TAB*] 300 mg PO DAILY 06/19/18 12/21/18 History busPIRone TAB* [Buspar TAB*] 10 mg PO DAILY 06/19/18 12/21/18 History Omeprazole 20 mg PO DAILY 12/21/18 12/21/18 History Ondansetron TAB* [Zofran 4 MG Tab*] 4 mg PO Q6H PRN 12/21/18 12/21/18 History Allergies: Allergies Allergy/AdvReac Type Severity Reaction Status Date / Time Sulfa (Sulfonamide Allergy Hives Verified 12/21/18 07:26 Antibiotics) Objective - Vital Signs Vital Signs: Vital Signs 12/24/18 12/24/18 12/24/18 15:30 15:44 17:23 Temperature 98.5 F Pulse Rate 96 Respiratory 19 16 18 Rate Blood Pressure 117/71 (mmHg) O2 Sat by Pulse 100 Oximetry 12/24/18 12/24/18 12/25/18 20:00 23:15 01:18 Temperature 97.5 F Pulse Rate 85 Respiratory 16 20 16 Rate Blood Pressure 97/52 (mmHg) O2 Sat by Pulse 98 Oximetry 12/25/18 12/25/18 12/25/18 03:30 03:45 07:06 Temperature 98.3 F Pulse Rate 96 Respiratory 20 16 18 Rate Blood Pressure 100/57 (mmHg) O2 Sat by Pulse 98 Oximetry 12/25/18 12/25/18 12/25/18 08:09 09:59 11:20 Temperature 99.6 F Pulse Rate 102 Respiratory 16 18 18 Rate Blood Pressure 119/66 (mmHg) O2 Sat by Pulse 100 Oximetry 12/25/18 12/25/18 11:44 11:49 Temperature 101 F 99.4 F Pulse Rate 95 Respiratory 18 Rate Blood Pressure 114/68 (mmHg) O2 Sat by Pulse 100 Oximetry - Intake and Output Intake and Output: Intake & Output 12/23/18 12/24/18 12/25/18 12/26/18 06:59 06:59 06:59 06:59 Intake Total 2605 3274 839 100 Output Total 0 0 Balance 2605 3274 839 100 Intake: IV Fluids 1045 2114 839 Normal Saline 214 839 Oral 1560 1160 0 100 Output: Urine 0 0 Other: Estimated Void Medium # Bowel Movements 0 1 Estimated Stool Amount Medium Medium # Voids 2 ADLs: Meal Record Start: 12/21/18 14: 39 Freq: DAILY@0900,1400,1800 Status: Active Protocol: Created 12/21/18 14:39 System (Rec: 12/21/18 14:39 System [facility] [place]) Document 12/21/18 18:00 [id number] (Rec: 12/21/18 18:27 [id number] MED-C11) Document 12/22/18 09:00 [id number] (Rec: 12/22/18 09:31 [id number] MED-C11) Document 12/22/18 13:05 [id number] (Rec: 12/22/18 13:05 [id number] MED-C11) Document 12/23/18 10:36 [id number] (Rec: 12/23/18 10:36 [id number] MED-C05) Document 12/23/18 13:53 [id number] (Rec: 12/23/18 13:53 [id number] MED-C11) Document 12/23/18 14:12 [id number] (Rec: 12/23/18 14:12 [id number] MED-C05) Document 12/23/18 18:00 [id number] (Rec: 12/23/18 18:23 [id number] MED-C05) Document 12/24/18 09:00 [id number] (Rec: 12/24/18 09:26 [id number] MED-C11) Document 12/25/18 09:00 [id number] (Rec: 12/25/18 09:22 [id number] MED-C16) Intake and Output Start: 12/21/18 08: 11 Freq: Status: Active Protocol: Created 12/21/18 08:11 System (Rec: 12/21/18 08:11 System ED-C24) Intake and Output Start: 12/21/18 14: 39 Freq: DAILY@0600,1400,2200 Status: Active Protocol: Created 12/21/18 14:39 System (Rec: 12/21/18 14:39 System TELE-C32) Document 12/21/18 22:00 [id number] (Rec: 12/21/18 22:31 [id number] MED-C16) Document 12/22/18 05:13 [id number] (Rec: 12/22/18 05:13 [id number] MED-C16) Document 12/22/18 22:00 [id number] (Rec: 12/22/18 22:34 [id number] MED-C09) Document 12/23/18 04:09 [id number] (Rec: 12/23/18 04:09 [id number] MED-C09) Document 12/23/18 13:58 [id number] (Rec: 12/23/18 13:58 [id number] MED-C05) Document 12/23/18 22:00 [id number] (Rec: 12/23/18 22:39 [id number] MED-C05) Document 12/24/18 00:14 [id number] (Rec: 12/24/18 00:14 [id number] MED-M02) Document 12/24/18 04:59 [id number] (Rec: 12/24/18 05:00 [id number] MED-C11) Document 12/24/18 22:00 [id number] (Rec: 12/24/18 23:47 [id number] MED-C04) Document 12/25/18 05:24 [id number] (Rec: 12/25/18 05:25 [id number] [facility] [place] - Physical Exam General Physical Exam Comment: Sitting up, uncomfortable; not in acute distress Eye Exam: bilateral: PERRLA Skin: Abnormal: Rash, Lesions - faint unchanged psoriasis and mild erythema which is tender over the dorsum of her left foot Thyroid Function: Clinically Euthyroid Lungs and Chest: Yes: Chest Expansion Full, Chest Expansion Symetrica, Percussion Note Resonant Heart Rate and Rhythm: Regular JVP: Not Elevated [place] Beat: Non Displaced Additional Cardiovascular: Yes: [place] Beat not Displaced Abdominal Exam: Yes: Soft - Rheumotological System Joints: Joint Swelling - Mild swelling around both ankles although they had full range of motion; mild warmth of both ankles - Extremities Posterior Tibial Pulse: Bilateral Normal Dorsalis Pedis Pulses: Bilateral Normal - Neuro Psychiatric: Normal Speech: Normal Results - Results Lab Results: Laboratory Results - last 24 hr 12/24/18 12/25/18 12/25/18 19:45 06:47 06:47 WBC 12.8 H RBC 3.80 Hgb 10.7 L Hct 32 L MCV 84 MCH 28 MCHC 34 RDW 13 Plt Count 371 MPV 7.0 L Neut % (Auto) 82.7 Lymph % (Auto) 9.9 [place] % (Auto) 6.5 Eos % (Auto) 0.3 Baso % (Auto) 0.6 Absolute Neuts (auto) 10.6 H Absolute Lymphs (auto) 1.3 Absolute Monos (auto) 0.8 Absolute Eos (auto) 0.0 Absolute Basos (auto) 0.1 Absolute Nucleated RBC 0.0 Nucleated RBC % 0.0 Sodium 136 Potassium 3.6 Chloride 101 Carbon Dioxide 24 Anion Gap 11 BUN 3 L Creatinine 0.88 Est GFR ( Amer) 91.9 Est GFR (Non-Af Amer) 76.0 BUN/Creatinine Ratio 3.4 L Glucose 82 Calcium 8.3 L C-Reactive Protein 197.42 H Urine Color Straw Urine Appearance Clear Urine pH 6.0 Ur Specific [place] 1.006 L Urine Protein Negative Urine Ketones 1+ A Urine Blood 2+ A Urine Nitrate Negative Urine Bilirubin Negative Urine Urobilinogen Negative Ur Leukocyte Esterase Trace A Urine WBC (Auto) 2+(11-20/hpf) A Urine RBC (Auto) 2+(6-10/hpf) A Ur Squamous Epith Cells Present A Urine Bacteria Absent Urine Glucose Negative Assessment - Problem List Assessment: Patient Problems Colitis (Acute) Depression (Acute) Fever (Acute) Nausea (Acute) Plan: Ms. Whitman has features acute periarthritis in the setting of refractory GI symptoms, low grade fever, markedly elevated inflammatory markers and psoriasis. I suspect that she has a reactive arthropathy. Given her history of psoriasis, she may have an underlying spondyloarthropathy, which has been linked to inflammatory bowel disease. She is very uncomfortable, primarily from joint inflammation but also GI symptoms It seems like an acute infection has been ruled out and we are facing a significant inflammatory condition. Full GI workup is still pending. Consider a trial of Solumedrol 40mg IV daily. Left message to discuss with Dr. Ames.
[2018-12-25 13:12] LABS: Hepatitis B Surface Antigen Nonreactive (Nonreactive)
[2018-12-25 13:38] LABS: Hepatitis C Antibody Nonreactive (Nonreactive)
[2018-12-25] MEDS ORDERED: fentaNYL* 50 MCG/ML 2 ML VIAL (100 MCG VIAL) ONE (14:32)
[2018-12-25] MEDS ORDERED: Midazolam* 1 MG/ML 10 ML VIAL (10 MG) ONE (14:32)
--- NOTE | 2018-12-25 15:08 | PN ---
Subjective Date of Service: 12/25/18 Interval History: Patient continues to feel very poorly with F/C at night predominantly, nausea and dry heaving, fatigue, malaise and pain in ankles. Patient's rashes have evolved and changed in color, particularly on feet. Patient has had no blood in vomit. Patient denies recent diarrhea. Patient denies CP, SOB. Patient has no dysuria or urinary frequency. Patient has no recent travel outside the country, was tested for HIV after beginning her most recent monogamous relationship with a partner and vehemently denies IV drug abuse. Family History: Unchanged from Admission Social History: Unchanged from Admission Past Medical History: Unchanged from Admission Objective Active Medications: Acetaminophen (Tylenol Tab*) 650 mg PO Q4H PRN PRN Reason: FEVER/PAIN Last Admin: 12/24/18 19:34 Dose: 650 mg Bupropion HCl (Bupropion Xl*) 300 mg PO DAILY [facility] Last Admin: 12/25/18 07:53 Dose: Not Given Buspirone HCl (Buspar Tab*) 10 mg PO DAILY [facility] Last Admin: 12/25/18 07:52 Dose: Not Given Ethinyl Estradiol/Norethindrone (Lo Loestrin Fe (Nf)) 1 tab PO DAILY [facility] Last Admin: 12/25/18 07:52 Dose: Not Given Sodium Chloride (Ns 0.9% 1000 Ml) 1,000 mls @ 75 mls/hr IV PER RATE [facility] Last Admin: 12/25/18 06:53 Dose: 75 mls/hr Lorazepam (Ativan Inj*) 0.5 mg IV PUSH Q6H PRN PRN Reason: nausea Last Admin: 12/25/18 09:59 Dose: 0.5 mg Miscellaneous (Ativan Pyxis Gonzalez) 1 ea N/A .ATIVAN IV GONZALEZ PRN PRN Reason: PYXIS GONZALEZ Ondansetron HCl (Zofran Inj*) 4 mg IV Q4H PRN PRN Reason: NAUSEA Last Admin: 12/25/18 12:02 Dose: 4 mg Pantoprazole Sodium (Protonix Tab*) 40 mg PO DAILY [facility] Last Admin: 12/25/18 07:52 Dose: Not Given Propranolol HCl (Inderal Tab*) 20 mg PO DAILY [facility] Last Admin: 12/25/18 09:31 Dose: 20 mg Venlafaxine HCl (Effexor Xr Cap*) 150 mg PO DAILY [facility] Last Admin: 12/25/18 07:53 Dose: Not Given Vital Signs - 8 hr 12/25/18 12/25/18 12/25/18 07:06 08:09 09:59 Temperature 99.6 F Pulse Rate 102 Respiratory 18 16 18 Rate Blood Pressure 119/66 (mmHg) O2 Sat by Pulse 100 Oximetry 12/25/18 12/25/18 12/25/18 11:20 11:44 11:49 Temperature 101 F 99.4 F Pulse Rate 95 Respiratory 18 18 Rate Blood Pressure 114/68 (mmHg) O2 Sat by Pulse 100 Oximetry Oxygen Devices in Use Now: None Appearance: Patient is a 28yo female who appears stated age and is sitting in the bed in NAD. Eyes: No Scleral Icterus, PERRLA Ears/Nose/Mouth/Throat: NL Teeth, Lips, Gums, Clear Oropharnyx, Mucous Membranes Moist Neck: NL Appearance and Movements; NL JVP, Trachea Midline Respiratory: Symmetrical Chest Expansion and Respiratory Effort, Clear to Auscultation Cardiovascular: NL Sounds; No Murmurs; No JVD, RRR, No Edema Abdominal: No Hepatosplenomegaly, - - Tender to palpation throughout. Normoactive bowel sounds. Lymphatic: No Cervical Adenopathy Extremities: No Edema, No Clubbing, Cyanosis Skin: No Rash or Ulcers, No Nodules or Sclerosis Neurological: Alert and Oriented x 3, NL Muscle Strength and Tone, - - CN II- XII intact. Decreased sensation on left heel. Result Diagrams: 12/25/18 06:47 12/25/18 06:47 Microbiology and Other Data: Microbiology 12/21/18 11:34 Stool Gross Appearance - Final Stool Stool Lactoferrin - Final Cryptosporidium/Giardia - Final Neg Cryptosporidium/Giardia 12/21/18 08:53 Urine Culture - Final Urine 12/21/18 09:03 Aerobic Blood Culture - Preliminary Blood Venous No Growth Day 1 Anaerobic Blood Culture - Preliminary No Growth Day 1 12/21/18 09:03 Aerobic Blood Culture - Preliminary Blood Venous No Growth Day 1 Anaerobic Blood Culture - Preliminary No Growth Day 1 12/21/18 11:34 Stool Gross Appearance - Final Stool C. difficile DNA Amplification - Final 027 Presumptive NEGATIVE Toxigenic C.diff NEGATIVE 12/21/18 11:34 Stool Gross Appearance - Final Stool Assess/Plan/Problems-Billing Assessment: 28 yo F h/o anxiety/depression presents with 1 month N/V diarrhea, fatigue, LE joint pains found on CT with e/o colitis and/or pyelonephritis who has been having persistent symptoms of fever, malaise and predominant N/V. - Patient Problems (1) Fever Current Visit: Yes Status: Acute Code(s): R50.9 - FEVER, UNSPECIFIED SNOMED Code(s): 892705629 Comment: - Extensive infectious and autoimmune workup pending and negative to date. - No colitis on flex sig or biopsy, EGD pending - Labs sent reveal normal TPO antibodies - Gastroenteritis with N/V diarrhea in differential but fever and crp seem out of proportion and time course not consistent with infectious cause - Recurrent Fevers, Inflammatory Markers trending up, trial empiric steroids - Appreciate GI, Rheumatology and ID input. (2) Inflammation Current Visit: Yes Status: Acute Code(s): [id number] - SNOMED Code(s): 969034973 Comment: - Elevated inflammatory markers with predominant abdominal pain with N/V - Inflammatory Markers trending up - Possible reactive arthritis vs Seronegative Spondyloarthropathy vs MONTES vs Celiac - Continue Rheumatologic workup, appreciate input. (3) Depression Current Visit: Yes Status: Acute Code(s): F32.9 - MAJOR DEPRESSIVE DISORDER , SINGLE EPISODE, UNSPECIFIED SNOMED Code(s): 01619914 Comment: - Euthymic, Continue chronic treatments. (4) Nausea Current Visit: Yes Status: Acute Code(s): R11.0 - NAUSEA SNOMED Code(s): 351932033 Comment: - Continue Zofran and Ativan - Intolerant of Compazine. - Continue IV fluids. Status and Disposition: Inpatient. Disposition pending ability to tolerate adequate PO intake.
[2018-12-25] MEDS: methylPREDNISolone SOD 40 MG* 1 ML VIAL IV SCH (16:35)
[2018-12-25 18:56] LABS: Tissue Transglutaminase IgA Ab 2.6 U/mL
[2018-12-25 19:06] LABS: Cyclic Citrullinated Peptide <15.6 U
[2018-12-25 19:57] LABS: Immunoglobulin A 331 mg/dL (61 - 356)
--- NOTE | 2018-12-25 20:23 | PRO ---
CC: Dr. Irina Clements; Dr. Sutton * ESOPHAGOGASTRODUODENOSCOPY REPORT: DATE OF PROCEDURE: 12/25/18 PRIMARY CARE PHYSICIAN: Dr. Irina Clements. GUIDEMAN: Dr. Sutton. INDICATION FOR PROCEDURE: Abdominal pain, diarrhea. PROCEDURE PERFORMED: Complete esophagogastroduodenoscopy with biopsies. MEDICATIONS GIVEN: Include 10 mg IV midazolam, 100 mcg IV fentanyl. DESCRIPTION OF PROCEDURE: After the EGD procedure including the risks, benefits , and alternatives with the risks not limited to perforation, surgery, missed lesions, and/or were explained to the patient, written informed consent was obtained, IV medication was given, and a bite-block was placed between the teeth. The adult Olympus gastroscope was then inserted into the patient's oropharynx and into the tubular esophagus. The tubular esophagus was normal in appearance; however, given the constellation of symptomatology, biopsies were obtained at the distal esophagus. The GE junction was intact. The scope was advanced through the lower esophageal sphincter into the stomach. The antrum and body of the stomach were normal in appearance; however, a biopsy was taken for CLOtesting. In the fundus, there was some mild gastropathy. This was biopsied. On retroflexion, the views were otherwise grossly unremarkable. The scope was then advanced through the widely patent pylorus into the duodenal bulb , C-loop, and distal duodenum. These were completely normal in appearance. Biopsies were taken extensively to rule out villous blunting and potentially celiac disease; however, macroscopically, I did not see evidence of this. The scope was then removed from the patient. She tolerated the procedure well. She returned to the recovery room in stable condition. IMPRESSION: 1. Complete esophagogastroduodenoscopy with biopsies. 2. Mild gastropathy in the fundus, otherwise completely normal EGD, but biopsies taken in each area extensively. RECOMMENDATIONS: No etiology of her symptoms was identified today. The mild gastropathy may be from retching previously. No gross erosions or ulcerations were noted. No gross evidence of celiac disease was noted. At this time, we will await results of biopsies. Continue to follow with Rheumatology. If ongoing concern from GI point of view, could consider capsule endoscopy to rule out inflammatory bowel disease or Behcet's of the small bowel. [id number]/[facility] #: [id number] [facility]
[2018-12-25] MEDS: Acetaminophen TAB* 325 MG PO PRN (21:29)
[2018-12-26] MEDS: NS 0.9% 1000 ML** 1,000 ML IV SCH (06:14)
[2018-12-26] MEDS: Ondansetron INJ* 2 MG/ML VIAL IV PRN ×2 (06:25→14:37)
[2018-12-26 06:49] LABS: ABS Basophils 0.1 10^3/ul (0-0.2); ABS Monocytes 0.4 10^3/ul (0-0.8); Eosinophil % 0.1 %; Hematocrit 35 % (35-47); Hemoglobin 11.7 g/dL (12.0-16.0); Lymphocyte % 7.7 %; Mean Corpuscular HGB Conc 34 g/dL (31-36); Mean Corpuscular Hemoglobin 28 pg (27-31); Mean Corpuscular Volume 84 fL (80-97); Mean Platelet Volume 7.3 fL (7.4-10.4); Platelet Count 418 10^3/uL (150-450); Red Blood Count 4.18 10^6 /uL (3.70-4.87); Red Cell Distribution Width 13 % (10.5-15); White Blood Count 12.4 10^3/uL (3.5-10.8)
[2018-12-26 07:03] LABS: Albumin 3.2 g/dL (3.2-5.2); Albumin/Globulin Ratio 0.9 (1-3); BUN/Creatinine Ratio 7.9 (8-20); Calcium 8.5 mg/dL (8.6-10.3); EGFR African American 108.9 (>60); Globulin 3.6 g/dL (2-4); Magnesium 2.1 mg/dL (1.9-2.7); Potassium 4.1 mmol/L (3.5-5.0); Total Bilirubin 0.2 mg/dL (0.2-1.0); Total Protein 6.8 g/dL (6.4-8.9)
[2018-12-26 08:26] LABS: HLA B27 Negative
[2018-12-26] MEDS: Venlafaxine EXT RELEASE CAP* 75 MG PO SCH (09:12)
[2018-12-26] MEDS: Pantoprazole TAB * 40 MG TAB PO SCH (09:12)
[2018-12-26] MEDS: methylPREDNISolone SOD 40 MG* 1 ML VIAL IV SCH (09:12)
[2018-12-26] MEDS: BuPROPion XL* 300 MG TAB.XL PO SCH (09:12)
[2018-12-26] MEDS: Propranolol TAB* 20 MG PO SCH (09:12)
[2018-12-26] MEDS: busPIRone TAB* 10 MG PO SCH (09:12)
[2018-12-26] MEDS: ETH ESTRADIOL PO SCH (09:13)
[2018-12-26] MEDS: NORETHINDR PO SCH (09:13)
--- NOTE | 2018-12-26 10:54 | PN ---
Progress Note - Progress Note Date of Service: 12/26/18 SOAP: Subjective: CC: Bilateral knee and ankle pain HPI: Ms. Whitman is a 28 yo female with PMH significant for psoriasis, depression and anxiety. She reports sore throat and bilateral knee and ankle pain. Denies fever , chills, ABD pain, nausea, dry heaves, diarrhea, or urinary symptoms. She has a poor appetite but has been able to eat a little bit. She states that she took a shower this morning and over all is slowly feeling better. Objective: Vital Signs - 12 hr Temp Pulse Resp BP Pulse Ox 12/26/18 02:32 96.9 F 66 20 101/67 97 Physical Exam: General: NAD, laying in bed Neurological: Alert and oriented x 4 HEENT: Moist MM, no thrush, posterior phaynx with erythema, there is an ulcer to the right tonsil. No exudate seen. Cardiovascular: Heart rate regular Respiratory: Lung sounds clear bilateral Abdominal: Bowel sounds present; ABD soft, non tender and non distended Musculoskeletal: No swelling of joints, full ROM, no crepitus of the knees or ankles Skin: Psoriasis plaques to bilateral LEs Laboratory Results - last 24 hr 12/23/18 12/23/18 12/23/18 IgA 331 Cyclic Citrull Peptide <15.6 Anti-Nuclear Antibody 0.3 LISA Interpretation See comment Proteinase 3 (PR3) < 0.2 Myeloperoxidase Ab < 0.2 Tiss Transglutamin IgA 2.6 Celiac Disease Interp See comment HLA-B27 Negative HLA-B27 Interpretation See comment 12/23/18 12/25/18 12/26/18 19:37 06:47 06:30 WBC 12.4 H RBC 4.18 Hgb 11.7 L Hct 35 MCV 84 MCH 28 MCHC 34 RDW 13 Plt Count 418 MPV 7.3 L Neut % (Auto) 88.2 Lymph % (Auto) 7.7 [place] % (Auto) 3.5 Eos % (Auto) 0.1 Baso % (Auto) 0.5 Absolute Neuts (auto) 11.0 H Absolute Lymphs (auto) 1.0 Absolute Monos (auto) 0.4 Absolute Eos (auto) 0.0 Absolute Basos (auto) 0.1 Absolute Nucleated RBC 0.0 Nucleated RBC % 0.0 Glomerular Base Memb Ab <0.2 Hepatitis A IgM Ab Nonreactive Hep Bs Antigen Nonreactive Hep B Core IgM Ab Nonreactive Hepatitis C Antibody Nonreactive Hepatitis C Ab Index < 0.0 12/26/18 06:30 Sodium 138 Potassium 4.1 Chloride 103 Carbon Dioxide 27 Anion Gap 8 BUN 6 Creatinine 0.76 Est GFR ( Amer) 108.9 Est GFR (Non-Af Amer) 90.0 BUN/Creatinine Ratio 7.9 L Glucose 136 H Calcium 8.5 L Magnesium 2.1 Total Bilirubin 0.20 AST 11 L ALT 7 Alkaline Phosphatase 53 Total Protein 6.8 Albumin 3.2 Globulin 3.6 Albumin/Globulin Ratio 0.9 L Microbiology 12/21/18 09:03 Aerobic Blood Culture - Final Blood Venous No Growth Day 5 Anaerobic Blood Culture - Final No Growth Day 5 12/21/18 09:03 Aerobic Blood Culture - Final Blood Venous No Growth Day 5 Anaerobic Blood Culture - Final No Growth Day 5 12/24/18 19:45 Urine Culture - Final Urine 12/25/18 15:34 CLOtest - Final Gastric Antrum 12/21/18 11:34 Stool Culture - Final Stool Stool Gross Appearance - Final Shiga Toxin I & II - Final Negative Shiga Toxin 1 & 2 12/21/18 11:34 Stool Gross Appearance - Final Stool Stool Lactoferrin - Final Cryptosporidium/Giardia - Final Neg Cryptosporidium/Giardia 12/21/18 08:53 Urine Culture - Final Urine 12/21/18 11:34 Stool Gross Appearance - Final Stool C. difficile DNA Amplification - Final 027 Presumptive NEGATIVE Toxigenic C.diff NEGATIVE Assessment: 1. Intermittent Fever, arthralgia, oral ulcer, and pharyngitis. Differential Diagnosis: Viral illness, bacterial infection, autoimmune, or autoinflammatory. Suspect acute viral illness. Syphilis IgG is negative. EBV IgG positive, IgM is negative. CMV IgG and IgM negative. Rapid strep negative. Coxsackievirus serology pending. Urine culture with no growth. Continues to have intermittent low grade fevers. Continues to have mild leukocytosis. Blood cultures with no growth on day 5. Plan: Continue to hold antibiotics. Provide supportive care.
--- NOTE | 2018-12-26 15:00 | PN ---
Subjective Date of Service: 12/26/18 Interval History: Patient is feeling better, states abdominal pain is improved, still mild nausea without retching and decreased appetite. Patient states the pain in her ankles is decreased as is the tingling pain in her heels. Patient denies new rash, CP, Diarrhea, Dizziness, dysuria, F/C, or other pain. Family History: Unchanged from Admission Social History: Unchanged from Admission Past Medical History: Unchanged from Admission Objective Active Medications: Acetaminophen (Tylenol Tab*) 650 mg PO Q4H PRN PRN Reason: FEVER/PAIN Last Admin: 12/25/18 21:29 Dose: 650 mg Bupropion HCl (Bupropion Xl*) 300 mg PO DAILY [facility] Last Admin: 12/26/18 09:12 Dose: 300 mg Buspirone HCl (Buspar Tab*) 10 mg PO DAILY [facility] Last Admin: 12/26/18 09:12 Dose: 10 mg Ethinyl Estradiol/Norethindrone (Lo Loestrin Fe (Nf)) 1 tab PO DAILY [facility] Last Admin: 12/26/18 09:13 Dose: Not Given Sodium Chloride (Ns 0.9% 1000 Ml) 1,000 mls @ 75 mls/hr IV PER RATE [facility] Last Admin: 12/26/18 06:14 Dose: 75 mls/hr Lorazepam (Ativan Inj*) 0.5 mg IV PUSH Q6H PRN PRN Reason: nausea Last Admin: 12/25/18 09:59 Dose: 0.5 mg Methylprednisolone Sodium Succinate (Solu-Medrol 40 Mg) 40 mg IV DAILY [facility] Last Admin: 12/26/18 09:12 Dose: 40 mg Miscellaneous (Ativan Pyxis Gonzalez) 1 ea N/A .ATIVAN IV GONZALEZ PRN PRN Reason: PYXIS GONZALEZ Ondansetron HCl (Zofran Inj*) 4 mg IV Q4H PRN PRN Reason: NAUSEA Last Admin: 12/26/18 14:37 Dose: 4 mg Pantoprazole Sodium (Protonix Tab*) 40 mg PO DAILY [facility] Last Admin: 12/26/18 09:12 Dose: 40 mg Propranolol HCl (Inderal Tab*) 20 mg PO DAILY [facility] Last Admin: 12/26/18 09:12 Dose: 20 mg Venlafaxine HCl (Effexor Xr Cap*) 150 mg PO DAILY [facility] Last Admin: 12/26/18 09:12 Dose: 150 mg Vital Signs - 8 hr 12/26/18 12/26/18 12/26/18 07:09 08:00 11:46 Temperature 98.1 F 98.5 F Pulse Rate 75 67 Respiratory 16 16 18 Rate Blood Pressure 116/75 112/51 (mmHg) O2 Sat by Pulse 100 97 Oximetry Oxygen Devices in Use Now: None Appearance: Patient is a 28yo female who appears stated age and appears subjectively much improved from previous exam. Eyes: No Scleral Icterus, PERRLA Ears/Nose/Mouth/Throat: NL Teeth, Lips, Gums, Clear Oropharnyx, Mucous Membranes Moist Neck: NL Appearance and Movements; NL JVP, Trachea Midline Respiratory: Symmetrical Chest Expansion and Respiratory Effort, Clear to Auscultation Cardiovascular: NL Sounds; No Murmurs; No JVD, RRR, No Edema Abdominal: NL Sounds; No Tenderness; No Distention, No Hepatosplenomegaly Lymphatic: No Cervical Adenopathy Extremities: No Edema, No Clubbing, Cyanosis Skin: No Nodules or Sclerosis, - - Round area of ecchymosis on dorsum of left foot. Stable Psoriasis. Neurological: Alert and Oriented x 3, NL Muscle Strength and Tone, - - Decreased sensation in B/L Heels. Result Diagrams: 12/26/18 06:30 12/26/18 06:30 Microbiology and Other Data: Microbiology 12/21/18 11:34 Stool Gross Appearance - Final Stool Stool Lactoferrin - Final Cryptosporidium/Giardia - Final Neg Cryptosporidium/Giardia 12/21/18 08:53 Urine Culture - Final Urine 12/21/18 09:03 Aerobic Blood Culture - Preliminary Blood Venous No Growth Day 1 Anaerobic Blood Culture - Preliminary No Growth Day 1 12/21/18 09:03 Aerobic Blood Culture - Preliminary Blood Venous No Growth Day 1 Anaerobic Blood Culture - Preliminary No Growth Day 1 12/21/18 11:34 Stool Gross Appearance - Final Stool C. difficile DNA Amplification - Final 027 Presumptive NEGATIVE Toxigenic C.diff NEGATIVE 12/21/18 11:34 Stool Gross Appearance - Final Stool Assess/Plan/Problems-Billing Assessment: 28 yo F h/o anxiety/depression presents with 1 month N/V diarrhea, fatigue, LE joint pains found on CT with e/o colitis and/or pyelonephritis who has been having persistent symptoms of fever, malaise and predominant N/V with improvement on empiric steroids. - Patient Problems (1) Fever Current Visit: Yes Status: Acute Code(s): R50.9 - FEVER, UNSPECIFIED SNOMED Code(s): 294376534 Comment: - Extensive infectious and autoimmune workup pending and negative to date. - No colitis on flex sig or biopsy, nothing noted on EGD. - Labs sent reveal normal TPO antibodies - Gastroenteritis with N/V diarrhea in differential but fever and crp seem out of proportion and time course not consistent with infectious cause - Recurrent Fevers, Inflammatory Markers trending up, trialed empiric steroids without improvement. - Appreciate GI, Rheumatology and ID input. (2) Inflammation Current Visit: Yes Status: Acute Code(s): FLC0384 - SNOMED Code(s): 085082883 Comment: - Elevated inflammatory markers with predominant abdominal pain with N/V - Inflammatory Markers trending up - Possible reactive arthritis vs Seronegative Spondyloarthropathy vs MONTES vs Celiac - Negative HLA-B27 doesn't rule out Seronegative Spondyloarthropathy. - Continue Rheumatologic workup, appreciate input. (3) Depression Current Visit: Yes Status: Acute Code(s): F32.9 - MAJOR DEPRESSIVE DISORDER , SINGLE EPISODE, UNSPECIFIED SNOMED Code(s): 12306313 Comment: - Euthymic, Continue chronic treatments. (4) Nausea Current Visit: Yes Status: Acute Code(s): R11.0 - NAUSEA SNOMED Code(s): 936924408 Comment: - Much improved - Continue Zofran and Ativan - Intolerant of Compazine. - Discontinue IV fluids and continue to assess. Status and Disposition: Inpatient. Disposition pending ability to tolerate adequate PO intake and oral medications.
--- NOTE | 2018-12-26 15:27 | PN ---
Subjective - Subjective Date of Service: 12/26/18 - Chief complaint: Nausea, elevated inflammatory markers, arthralgias Active Problems: Active Problems Colitis (Acute) K52.9 no e/o colitis on flex sig biopsies taken and results pending Depression (Acute) F32.9 - Euthymic, Continue chronic treatments. Fever (Acute) R50.9 - Extensive infectious and autoimmune workup pending and negative to date. - No colitis on flex sig or biopsy, nothing noted on EGD. - Labs sent reveal normal TPO antibodies - Gastroenteritis with N/V diarrhea in differential but fever and crp seem out of proportion and time course not consistent with infectious cause - Recurrent Fevers, Inflammatory Markers trending up, trialed empiric steroids Inflammation (Acute) [id number] - Elevated inflammatory markers with predominant abdominal pain with N/V - Inflammatory Markers trending up - Possible reactive arthritis vs Seronegative Spondyloarthropathy vs MONTES vs Celiac - Negative HLA-B27 doesn't rule out Seronegative Spondyloarthropathy. - Continue Rheumatologic workup, appreciate input. Nausea (Acute) R11.0 - Much improved - Continue Zofran and Ativan - Intolerant of Compazine. - Discontinue IV fluids and continue to assess. Current Medications: Current Medications Acetaminophen (Tylenol Tab*) 650 mg PO Q4H PRN PRN Reason: FEVER/PAIN Last Admin: 12/25/18 21:29 Dose: 650 mg Bupropion HCl (Bupropion Xl*) 300 mg PO DAILY [facility] Last Admin: 12/26/18 09:12 Dose: 300 mg Buspirone HCl (Buspar Tab*) 10 mg PO DAILY [facility] Last Admin: 12/26/18 09:12 Dose: 10 mg Ethinyl Estradiol/Norethindrone (Lo Loestrin Fe (Nf)) 1 tab PO DAILY [facility] Last Admin: 12/26/18 09:13 Dose: Not Given Lorazepam (Ativan Inj*) 0.5 mg IV PUSH Q6H PRN PRN Reason: nausea Last Admin: 12/25/18 09:59 Dose: 0.5 mg Methylprednisolone Sodium Succinate (Solu-Medrol 40 Mg) 40 mg IV DAILY [facility] Last Admin: 12/26/18 09:12 Dose: 40 mg Miscellaneous (Ativan Pyxis Gonzalez) 1 ea N/A .ATIVAN IV GONZALEZ PRN PRN Reason: PYXIS GONZALEZ Ondansetron HCl (Zofran Inj*) 4 mg IV Q4H PRN PRN Reason: NAUSEA Last Admin: 12/26/18 14:37 Dose: 4 mg Pantoprazole Sodium (Protonix Tab*) 40 mg PO DAILY [facility] Last Admin: 12/26/18 09:12 Dose: 40 mg Propranolol HCl (Inderal Tab*) 20 mg PO DAILY [facility] Last Admin: 12/26/18 09:12 Dose: 20 mg Venlafaxine HCl (Effexor Xr Cap*) 150 mg PO DAILY [facility] Last Admin: 12/26/18 09:12 Dose: 150 mg - Review of Systems General Comments: Generally Ms. Whitman is feeling better; she is able to tolerate oral intake and she is noting a generalized improvement in her symptoms. However, her feet and ankles are still aching; in particular she has pain in the left heel and dorsum of the left foot with some deep redness but no cellulitis over her left foot. Still there is some pain with ambulation Constitutional Symptoms: No: Weight Gain, Weight Loss, Night Sweats Dermatology: Skin Lesions: Yes - E nodosum over left foot Eyes: Positive: Normal Thyroid: Positive: Normal Pulmonary: Positive: Normal Cardiology: Positive: Normal Gastroenterology: Positive: Nausea - Improving Musculoskeletal: Positive: Joint Pain, Joint Stiffness Endocrinology: Positive: Normal, Gonadal Problems Neurology: Positive: Normal Psychiatry: Positive: Normal Allergic/Immunologic: Positive: Immunocompromise Home Medications: Home Medications Medication Instructions Recorded Confirmed Type Norethindrone-E.estradiol-Iron 1 tab PO DAILY 06/19/18 12/21/18 History [Yoselin 24 Fe 1 mg-20 Mcg Tablet] Propranolol TAB* [Inderal TAB*] 20 mg PO DAILY 06/19/18 12/21/18 History Venlafaxine TAB (NF) [Effexor TAB 150 mg PO DAILY 06/19/18 12/21/18 History (NF)] buPROPion TAB* [Wellbutrin TAB*] 300 mg PO DAILY 06/19/18 12/21/18 History busPIRone TAB* [Buspar TAB*] 10 mg PO DAILY 06/19/18 12/21/18 History Omeprazole 20 mg PO DAILY 12/21/18 12/21/18 History Ondansetron TAB* [Zofran 4 MG Tab*] 4 mg PO Q6H PRN 12/21/18 12/21/18 History Allergies: Allergies Allergy/AdvReac Type Severity Reaction Status Date / Time Sulfa (Sulfonamide Allergy Hives Verified 12/21/18 07:26 Antibiotics) Objective - Vital Signs Vital Signs: Vital Signs 12/25/18 12/25/18 12/25/18 16:35 17:36 19:01 Temperature 99.8 F 98.1 F 99.1 F Pulse Rate 102 95 100 Respiratory 18 16 16 Rate Blood Pressure 104/64 124/62 100/59 (mmHg) O2 Sat by Pulse 97 98 96 Oximetry 12/25/18 12/25/18 12/26/18 20:25 21:20 02:32 Temperature 98.5 F 96.9 F Pulse Rate 93 66 Respiratory 20 20 20 Rate Blood Pressure 103/62 101/67 (mmHg) O2 Sat by Pulse 99 97 Oximetry 12/26/18 12/26/18 12/26/18 07:09 08:00 11:46 Temperature 98.1 F 98.5 F Pulse Rate 75 67 Respiratory 16 16 18 Rate Blood Pressure 116/75 112/51 (mmHg) O2 Sat by Pulse 100 97 Oximetry - Intake and Output Intake and Output: Intake & Output 12/24/18 12/25/18 12/26/18 12/27/18 06:59 06:59 06:59 06:59 Intake Total 3274 839 3708 210 Output Total 0 Balance 3274 839 3708 210 Intake: IV Fluids 2114 839 2648 Normal Saline 315 085 7239 Oral 1160 0 1060 210 Output: Urine 0 Other: Estimated Void Medium # Bowel Movements 1 Estimated Stool Amount Medium # Voids 2 ADLs: Meal Record Start: 12/21/18 14: 39 Freq: DAILY@0900,1400,1800 Status: Active Protocol: Created 12/21/18 14:39 System (Rec: 12/21/18 14:39 System [facility]-2) Document 12/21/18 18:00 [id number] (Rec: 12/21/18 18:27 [id number] MED-C11) Document 12/22/18 09:00 [id number] (Rec: 12/22/18 09:31 [id number] MED-C11) Document 12/22/18 13:05 [id number] (Rec: 12/22/18 13:05 [id number] MED-C11) Document 12/23/18 10:36 [id number] (Rec: 12/23/18 10:36 [id number] MED-C05) Document 12/23/18 13:53 [id number] (Rec: 12/23/18 13:53 [id number] MED-C11) Document 12/23/18 14:12 [id number] (Rec: 12/23/18 14:12 [id number] MED-C05) Document 12/23/18 18:00 [id number] (Rec: 12/23/18 18:23 [id number] MED-C05) Document 12/24/18 09:00 [id number] (Rec: 12/24/18 09:26 [id number] MED-C11) Document 12/25/18 09:00 [id number] (Rec: 12/25/18 09:22 [id number] MED-C16) Document 12/25/18 14:00 [id number] (Rec: 12/25/18 14:14 [id number] MED-C16) Document 12/25/18 18:00 [id number] (Rec: 12/25/18 18:27 [id number] MED-C16) Document 12/26/18 09:00 [id number] (Rec: 12/26/18 09:34 [id number] MED-C11) Intake and Output Start: 12/21/18 08: 11 Freq: Status: Active Protocol: Created 12/21/18 08:11 System (Rec: 12/21/18 08:11 System ED-C24) Intake and Output Start: 12/21/18 14: 39 Freq: DAILY@0600,1400,2200 Status: Active Protocol: Created 12/21/18 14:39 System (Rec: 12/21/18 14:39 System TELE-C32) Document 12/21/18 22:00 [id number] (Rec: 12/21/18 22:31 [id number] MED-C16) Document 12/22/18 05:13 [id number] (Rec: 12/22/18 05:13 [id number] MED-C16) Document 12/22/18 22:00 [id number] (Rec: 12/22/18 22:34 [id number] MED-C09) Document 12/23/18 04:09 [id number] (Rec: 12/23/18 04:09 [id number] MED-C09) Document 12/23/18 13:58 [id number] (Rec: 12/23/18 13:58 [id number] MED-C05) Document 12/23/18 22:00 [id number] (Rec: 12/23/18 22:39 [id number] MED-C05) Document 12/24/18 00:14 [id number] (Rec: 12/24/18 00:14 [id number] MED-M02) Document 12/24/18 04:59 [id number] (Rec: 12/24/18 05:00 [id number] MED-C11) Document 12/24/18 22:00 [id number] (Rec: 12/24/18 23:47 [id number] MED-C04) Document 12/25/18 05:24 [id number] (Rec: 12/25/18 05:25 [id number] MED-C11) Document 12/25/18 14:00 [id number] (Rec: 12/25/18 14:15 [id number] MED-C16) Document 12/25/18 22:00 [id number] (Rec: 12/25/18 22:38 [id number] MED-C11) Document 12/26/18 04:32 [id number] (Rec: 12/26/18 04:34 [id number] MED-C12) - Physical Exam General Physical Exam Comment: Gen: no acute distress sitting up Eye Exam: bilateral: EOMI Skin: Abnormal: Lesions - echymyosis vs. e nodosum left foot Thyroid Function: Clinically Euthyroid Lungs and Chest: Yes: Chest Expansion Full, Chest Expansion Symetrica Heart Rate and Rhythm: Regular JVP: Not Elevated Halbur Beat: Non Displaced Additional Cardiovascular: Yes: Halbur Beat not Displaced - Rheumotological System Joints: Joint Swelling - Mild fullness over the dorsum of her left foot but ankle has full range of motion - Extremities Feet Sensation: Abnormal: Sensory - Neuro Psychiatric: Normal Results - Results Lab Results: Laboratory Results - last 24 hr 12/23/18 12/23/18 12/26/18 19:37 19:37 06:30 WBC 12.4 H RBC 4.18 Hgb 11.7 L Hct 35 MCV 84 MCH 28 MCHC 34 RDW 13 Plt Count 418 MPV 7.3 L Neut % (Auto) 88.2 Lymph % (Auto) 7.7 Sac % (Auto) 3.5 Eos % (Auto) 0.1 Baso % (Auto) 0.5 Absolute Neuts (auto) 11.0 H Absolute Lymphs (auto) 1.0 Absolute Monos (auto) 0.4 Absolute Eos (auto) 0.0 Absolute Basos (auto) 0.1 Absolute Nucleated RBC 0.0 Nucleated RBC % 0.0 Sodium Potassium Chloride Carbon Dioxide Anion Gap BUN Creatinine Est GFR ( Amer) Est GFR (Non-Af Amer) BUN/Creatinine Ratio Glucose Calcium Magnesium Total Bilirubin AST ALT Alkaline Phosphatase Total Protein Albumin Globulin Albumin/Globulin Ratio IgA 331 Cyclic Citrull Peptide <15.6 Anti-Nuclear Antibody 0.3 LISA Interpretation See comment Tiss Transglutamin IgA 2.6 Celiac Disease Interp See comment HLA-B27 Negative HLA-B27 Interpretation See comment 12/26/18 06:30 WBC RBC Hgb Hct MCV MCH MCHC RDW Plt Count MPV Neut % (Auto) Lymph % (Auto) Sac % (Auto) Eos % (Auto) Baso % (Auto) Absolute Neuts (auto) Absolute Lymphs (auto) Absolute Monos (auto) Absolute Eos (auto) Absolute Basos (auto) Absolute Nucleated RBC Nucleated RBC % Sodium 138 Potassium 4.1 Chloride 103 Carbon Dioxide 27 Anion Gap 8 BUN 6 Creatinine 0.76 Est GFR ( Amer) 108.9 Est GFR (Non-Af Amer) 90.0 BUN/Creatinine Ratio 7.9 L Glucose 136 H Calcium 8.5 L Magnesium 2.1 Total Bilirubin 0.20 AST 11 L ALT 7 Alkaline Phosphatase 53 Total Protein 6.8 Albumin 3.2 Globulin 3.6 Albumin/Globulin Ratio 0.9 L IgA Cyclic Citrull Peptide Anti-Nuclear Antibody LISA Interpretation Tiss Transglutamin IgA Celiac Disease Interp HLA-B27 HLA-B27 Interpretation Assessment - Problem List Assessment: Patient Problems Colitis (Acute) Depression (Acute) Fever (Acute) Inflammation (Acute) Nausea (Acute) Plan: Ms. Whitman has had significant GI symptoms and joint inflammation in the setting of psoriasis and elevated inflammatory markers. Her overall pain and discomfort is improving and she is tolerating oral intake. From a musculoskeletal perspective, however, she does have some pain around the left ankle and foot region; swelling seems to be more in the soft tissue than the joint as ROM of the ankle is preserved. We will check xrays. Depending on results Consider MRI imaging studies. As she improves, consider tapering steroids to 40mg daily and then tapering down over 1 or 2 weeks; monitor with steroids for a flare of psoriasis, which can occur as she tapers medication but psoriasis seems very minimal currently. She has features of a possible reactive arthropathy, although her HLAb27 is negative and no definite colitis was found on her endoscopies. Coordination of Care: Yes - Discussed with significant other who was in the room with her as well
[2018-12-26] MEDS: LORazepam INJ* 2 MG/ML 1 ML VIAL IV PUSH PRN ×2 (17:10→22:44)
[2018-12-26 21:39] LABS: Phospholipid Ab IgG < 9.4 GPL; Phospholipid Ab IgM, S < 9.4 MPL
[2018-12-27] MEDS: LORazepam INJ* 2 MG/ML 1 ML VIAL IV PUSH PRN (08:08)
[2018-12-27] MEDS ORDERED: LORazepam TAB(*) 0.5 MG PO PRN (08:15)
[2018-12-27] MEDS: BuPROPion XL* 300 MG TAB.XL PO SCH (08:16)
[2018-12-27] MEDS: busPIRone TAB* 10 MG PO SCH (08:16)
[2018-12-27] MEDS: Propranolol TAB* 20 MG PO SCH (08:16)
[2018-12-27] MEDS: Venlafaxine EXT RELEASE CAP* 75 MG PO SCH (08:16)
[2018-12-27] MEDS: Acetaminophen TAB* 325 MG PO PRN ×2 (08:17→17:47)
[2018-12-27] MEDS: Pantoprazole TAB * 40 MG TAB PO SCH (08:17)
[2018-12-27] MEDS ORDERED: Ondansetron ODT TAB* 4 MG SL PRN (08:19)
[2018-12-27] MEDS: predniSONE TAB* 50 MG PO SCH (08:32)
[2018-12-27] MEDS: ETH ESTRADIOL PO SCH (08:43)
[2018-12-27] MEDS: NORETHINDR PO SCH (08:43)
[2018-12-27 08:50] LABS: ABS Basophils 0.1 10^3/ul (0-0.2); ABS Lymphocytes 2.1 10^3/ul (1.0-4.8); ABS Monocytes 1.2 10^3/ul (0-0.8); ABS Neutrophils 17.9 10^3/ul (1.5-7.7); Eosinophil % 0.1 %; Hematocrit 33 % (35-47); Hemoglobin 11.3 g/dL (12.0-16.0); Lymphocyte % 10.1 %; Mean Corpuscular HGB Conc 34 g/dL (31-36); Mean Corpuscular Hemoglobin 29 pg (27-31); Mean Corpuscular Volume 84 fL (80-97); Mean Platelet Volume 7.4 fL (7.4-10.4); Nucleated Red Blood Cells % 0.1; Platelet Count 487 10^3/uL (150-450); Red Blood Count 3.94 10^6 /uL (3.70-4.87); Red Cell Distribution Width 13 % (10.5-15); White Blood Count 21.3 10^3/uL (3.5-10.8)
[2018-12-27] MEDS ORDERED: predniSONE TAB* 20 MG PO SCH (09:00)
[2018-12-27 09:12] LABS: Calcium 8.7 mg/dL (8.6-10.3); Magnesium 1.9 mg/dL (1.9-2.7); Potassium 3.9 mmol/L (3.5-5.0)
[2018-12-27 09:18] LABS: BUN/Creatinine Ratio 10.5 (8-20); C Reactive Protein 101.78 mg/L (<8.01); EGFR African American 94.4 (>60)
--- NOTE | 2018-12-27 09:22 | PN ---
Subjective - Subjective Date of Service: 12/27/18 - Chief Complain: elevated inflammatory markers, fever Active Problems: Active Problems Colitis (Acute) K52.9 no e/o colitis on flex sig biopsies taken and results pending Depression (Acute) F32.9 - Euthymic, Continue chronic treatments. Fever (Acute) R50.9 - Extensive infectious and autoimmune workup pending and negative to date. - No colitis on flex sig or biopsy, nothing noted on EGD. - Labs sent reveal normal TPO antibodies - Gastroenteritis with N/V diarrhea in differential but fever and crp seem out of proportion and time course not consistent with infectious cause - Recurrent Fevers, Inflammatory Markers trending up, trialed empiric steroids Inflammation (Acute) [id number] - Elevated inflammatory markers with predominant abdominal pain with N/V - Inflammatory Markers trending up - Possible reactive arthritis vs Seronegative Spondyloarthropathy vs MONTES vs Celiac - Negative HLA-B27 doesn't rule out Seronegative Spondyloarthropathy. - Continue Rheumatologic workup, appreciate input. Nausea (Acute) R11.0 - Much improved - Continue Zofran and Ativan - Intolerant of Compazine. - Discontinue IV fluids and continue to assess. Current Medications: Current Medications Acetaminophen (Tylenol Tab*) 650 mg PO Q4H PRN PRN Reason: FEVER/PAIN Last Admin: 12/27/18 08:17 Dose: 650 mg Bupropion HCl (Bupropion Xl*) 300 mg PO DAILY [facility] Last Admin: 12/27/18 08:16 Dose: 300 mg Buspirone HCl (Buspar Tab*) 10 mg PO DAILY [facility] Last Admin: 12/27/18 08:16 Dose: 10 mg Ethinyl Estradiol/Norethindrone (Lo Loestrin Fe (Nf)) 1 tab PO DAILY [facility] Last Admin: 12/27/18 08:43 Dose: Not Given Lorazepam (Ativan Tab(*)) 0.5 mg PO Q4H PRN PRN Reason: ANXIETY Miscellaneous (Ativan Pyxis Harrison) 1 ea N/A .ATIVAN IV HARRISON PRN PRN Reason: PYXIS HARRISON Ondansetron HCl (Zofran Odt Tab*) 4 mg SL Q6H PRN PRN Reason: NAUSEA/VOMITING Pantoprazole Sodium (Protonix Tab*) 40 mg PO DAILY [facility] Last Admin: 12/27/18 08:17 Dose: 40 mg Prednisone (Deltasone Tab*) 50 mg PO DAILY [facility] Last Admin: 12/27/18 08:32 Dose: 50 mg Propranolol HCl (Inderal Tab*) 20 mg PO DAILY [facility] Last Admin: 12/27/18 08:16 Dose: 20 mg Venlafaxine HCl (Effexor Xr Cap*) 150 mg PO DAILY [facility] Last Admin: 12/27/18 08:16 Dose: 150 mg - Review of Systems General Comments: Generally Ms. Whitman is feeling slightly better and is able to ambulate although she has had a persistent pins and needle sensation in the heel of her left foot and dorsal foot pain; the redness over the top of the foot is slightly improved Somewhat discouraged by persistent joint and GI issues. Able to tolerate some foods Constitutional Symptoms: Yes: Fatigue, No: Weight Gain, Weakness, Unexplained Falls Dermatology: Skin Lesions: Yes, Change in Skin Lesion: Yes - Slight improvement in nodule over the left dorsal foot region HEENT: Yes Normal Eyes: Positive: Normal Thyroid: Positive: Normal Pulmonary: Positive: Normal Cardiology: Positive: Normal Gastroenterology: Positive: Nausea, Change in Bowel Habits Musculoskeletal: Positive: Joint Pain, Joint Stiffness, Arthritis Neurology: Positive: Numbness\Paresthesiae Psychiatry: Positive: Depressed Mood Allergic/Immunologic: Positive: Immunocompromise Home Medications: Home Medications Medication Instructions Recorded Confirmed Type Norethindrone-E.estradiol-Iron 1 tab PO DAILY 06/19/18 12/21/18 History [Yoselin 24 Fe 1 mg-20 Mcg Tablet] Propranolol TAB* [Inderal TAB*] 20 mg PO DAILY 06/19/18 12/21/18 History Venlafaxine TAB (NF) [Effexor TAB 150 mg PO DAILY 06/19/18 12/21/18 History (NF)] buPROPion TAB* [Wellbutrin TAB*] 300 mg PO DAILY 06/19/18 12/21/18 History busPIRone TAB* [Buspar TAB*] 10 mg PO DAILY 06/19/18 12/21/18 History Omeprazole 20 mg PO DAILY 12/21/18 12/21/18 History Ondansetron TAB* [Zofran 4 MG Tab*] 4 mg PO Q6H PRN 12/21/18 12/21/18 History Allergies: Allergies Allergy/AdvReac Type Severity Reaction Status Date / Time Sulfa (Sulfonamide Allergy Hives Verified 12/21/18 07:26 Antibiotics) Objective - Vital Signs Vital Signs: Vital Signs 12/26/18 12/26/18 12/26/18 11:46 17:10 17:32 Temperature 98.5 F 97.8 F Pulse Rate 67 65 Respiratory 18 16 14 Rate Blood Pressure 112/51 112/64 (mmHg) O2 Sat by Pulse 97 98 Oximetry 12/26/18 12/26/18 12/26/18 18:10 19:30 22:00 Temperature 98.2 F Pulse Rate 70 Respiratory 16 22 16 Rate Blood Pressure 111/74 (mmHg) O2 Sat by Pulse 97 Oximetry 12/26/18 12/27/18 12/27/18 22:44 00:18 08:08 Temperature Pulse Rate Respiratory 16 16 16 Rate Blood Pressure (mmHg) O2 Sat by Pulse Oximetry - Intake and Output Intake and Output: Intake & Output 12/25/18 12/26/18 12/27/18 12/28/18 06:59 06:59 06:59 06:59 Intake Total 839 3708 2750 Balance 839 3708 2750 Intake: IV Fluids 839 2648 1640 Normal Saline 839 2648 1640 Oral 0 1060 1110 Other: Estimated Void Medium # Bowel Movements 0 # Voids 1 ADLs: Meal Record Start: 12/21/18 14: 39 Freq: DAILY@0900,1400,1800 Status: Active Protocol: Created 12/21/18 14:39 System (Rec: 12/21/18 14:39 System [facility] [place]) Document 12/21/18 18:00 [id number] (Rec: 12/21/18 18:27 [id number] MED-C11) Document 12/22/18 09:00 [id number] (Rec: 12/22/18 09:31 [id number] MED-C11) Document 12/22/18 13:05 [id number] (Rec: 12/22/18 13:05 [id number] MED-C11) Document 12/23/18 10:36 [id number] (Rec: 12/23/18 10:36 [id number] MED-C05) Document 12/23/18 13:53 [id number] (Rec: 12/23/18 13:53 [id number] MED-C11) Document 12/23/18 14:12 [id number] (Rec: 12/23/18 14:12 [id number] MED-C05) Document 12/23/18 18:00 [id number] (Rec: 12/23/18 18:23 [id number] MED-C05) Document 12/24/18 09:00 [id number] (Rec: 12/24/18 09:26 [id number] MED-C11) Document 12/25/18 09:00 [id number] (Rec: 12/25/18 09:22 [id number] MED-C16) Document 12/25/18 14:00 [id number] (Rec: 12/25/18 14:14 [id number] MED-C16) Document 12/25/18 18:00 [id number] (Rec: 12/25/18 18:27 [id number] MED-C16) Document 12/26/18 09:00 [id number] (Rec: 12/26/18 09:34 [id number] MED-C11) Document 12/26/18 14:00 [id number] (Rec: 12/26/18 18:01 [id number] MED-C04) Document 12/26/18 18:00 [id number] (Rec: 12/26/18 19:24 [id number] MED-C11) Intake and Output Start: 12/21/18 08: 11 Freq: Status: Complete Protocol: Created 12/21/18 08:11 System (Rec: 12/21/18 08:11 System ED-C24) Intake and Output Start: 12/21/18 14: 39 Freq: DAILY@0600,1400,2200 Status: Active Protocol: Created 12/21/18 14:39 System (Rec: 12/21/18 14:39 System TELE-C32) Document 12/21/18 22:00 [id number] (Rec: 12/21/18 22:31 [id number] MED-C16) Document 12/22/18 05:13 [id number] (Rec: 12/22/18 05:13 [id number] MED-C16) Document 12/22/18 22:00 [id number] (Rec: 12/22/18 22:34 [id number] MED-C09) Document 12/23/18 04:09 [id number] (Rec: 12/23/18 04:09 [id number] MED-C09) Document 12/23/18 13:58 [id number] (Rec: 12/23/18 13:58 [id number] MED-C05) Document 12/23/18 22:00 [id number] (Rec: 12/23/18 22:39 [id number] MED-C05) Document 12/24/18 00:14 [id number] (Rec: 12/24/18 00:14 [id number] MED-M02) Document 12/24/18 04:59 [id number] (Rec: 12/24/18 05:00 [id number] MED-C11) Document 12/24/18 22:00 [id number] (Rec: 12/24/18 23:47 [id number] MED-C04) Document 12/25/18 05:24 [id number] (Rec: 12/25/18 05:25 [id number] MED-C11) Document 12/25/18 14:00 [id number] (Rec: 12/25/18 14:15 [id number] MED-C16) Document 12/25/18 22:00 [id number] (Rec: 12/25/18 22:38 [id number] MED-C11) Document 12/26/18 04:32 [id number] (Rec: 12/26/18 04:34 [id number] MED-C12) Document 12/26/18 14:00 [id number] (Rec: 12/26/18 18:03 [id number] MED-C04) Document 12/26/18 21:59 [id number] (Rec: 12/26/18 22:02 [id number] MED-C04) Document 12/27/18 05:40 [id number] (Rec: 12/27/18 05:40 [id number] MED-C11) - Physical Exam General Physical Exam Comment: No acute distress sitting up Eye Exam: bilateral: PERRLA Skin: Abnormal: Lesions - Improved e nodosum, Other - trace psoriasis on her legs Lungs and Chest: Yes: Chest Expansion Full, Chest Expansion Symetrica, Percussion Note Resonant Heart Rate and Rhythm: Regular JVP: Not Elevated [place] Beat: Non Displaced Additional Cardiovascular: Yes: [place] Beat not Displaced Abdominal Exam: Yes: Soft - Rheumotological System Joints: Signs of Connective Tissue Disease - There is no joint synovitis or warmth in any joint; there is mild tenderness and dysesthesias along the dorsum of her left foot - Neuro Psychiatric: Depressed Speech: Normal Results - Results Lab Results: Laboratory Results - last 24 hr 12/25/18 12/27/18 06:43 08:28 WBC 21.3 H RBC 3.94 Hgb 11.3 L Hct 33 L MCV 84 MCH 29 MCHC 34 RDW 13 Plt Count 487 H D MPV 7.4 Neut % (Auto) 84.1 Lymph % (Auto) 10.1 Dickson % (Auto) 5.4 Eos % (Auto) 0.1 Baso % (Auto) 0.3 Absolute Neuts (auto) 17.9 H Absolute Lymphs (auto) 2.1 Absolute Monos (auto) 1.2 H Absolute Eos (auto) 0.0 Absolute Basos (auto) 0.1 Absolute Nucleated RBC 0.0 Nucleated RBC % 0.1 Anti-Cardiolipin IgG Ab < 9.4 Anti-Cardiolipin IgM Ab < 9.4 Assessment - Problem List Assessment: Patient Problems Colitis (Acute) Depression (Acute) Fever (Acute) Inflammation (Acute) Nausea (Acute) Plan: Polyarthralgias, elevated temperature and CRP (now improving). I suspect that we are dealing with an atypical form of psoriatic arthritis associated with possible gasteroenteritis. Discussed with patient and Farhat Max. I think that it would be helpful to get an MRI of her left foot to document synovitis even tho there is some improvement. Consider converting steroids over to oral Prednisone and tapering by 10mg every 3 days. I would like to closely follow up with her as an outpatient to consider immunomodulatory therapy. E Nodosum and GI symptoms seem to be improving. Leukocytosis may be from demargination of steroids as other signs of inflammation show improvement and she has not had a high fever. She has been discouraged by her extended illness and would like to go home soon. Possibly d/c soon with follow up with me within 1 week. - Health Maintenance 14 Systems Reviewed as above all others Negative: Yes Health Maintenance: Yes: Discussion with Primary Care
[2018-12-27] MEDS ORDERED: Senna TAB PO PRN (15:34)
--- NOTE | 2018-12-27 15:42 | PN ---
Subjective Date of Service: 12/27/18 Interval History: Patient continues to be very nauseated. Ativan helps but wears off and patient' s oral intake is still very restricted as eating/drinking provokes a large amount of nausea. Patient denies F/C, CP, SOB, dizziness. Patient continues to have stabbing "pins and needles" pain in ankles. Patient has not had a BM in 4 days and is beginning to feel constipated. Family History: Unchanged from Admission Social History: Unchanged from Admission Past Medical History: Unchanged from Admission Objective Active Medications: Acetaminophen (Tylenol Tab*) 650 mg PO Q4H PRN PRN Reason: FEVER/PAIN Last Admin: 12/27/18 08:17 Dose: 650 mg Bupropion HCl (Bupropion Xl*) 300 mg PO DAILY [facility] Last Admin: 12/27/18 08:16 Dose: 300 mg Buspirone HCl (Buspar Tab*) 10 mg PO DAILY [facility] Last Admin: 12/27/18 08:16 Dose: 10 mg Docusate Sodium (Colace Cap*) 100 mg PO BID [facility] Ethinyl Estradiol/Norethindrone (Lo Loestrin Fe (Nf)) 1 tab PO DAILY [facility] Last Admin: 12/27/18 08:43 Dose: Not Given Lorazepam (Ativan Tab(*)) 1 mg PO Q4H PRN PRN Reason: ANXIETY Miscellaneous (Ativan Pyxis Gonzalez) 1 ea N/A .ATIVAN IV GONZALEZ PRN PRN Reason: PYXIS GONZALEZ Pantoprazole Sodium (Protonix Tab*) 40 mg PO DAILY [facility] Last Admin: 12/27/18 08:17 Dose: 40 mg Prednisone (Deltasone Tab*) 50 mg PO DAILY [facility] Last Admin: 12/27/18 08:32 Dose: 50 mg Prochlorperazine (Compazine Tab*) 5 mg PO Q6H PRN PRN Reason: NAUSEA Propranolol HCl (Inderal Tab*) 20 mg PO DAILY [facility] Last Admin: 12/27/18 08:16 Dose: 20 mg Senna (Senokot Tab*) 1 tab PO BEDTIME PRN PRN Reason: CONSTIPATION Venlafaxine HCl (Effexor Xr Cap*) 150 mg PO DAILY [facility] Last Admin: 12/27/18 08:16 Dose: 150 mg Vital Signs - 8 hr 05/12/27/18 12/27/18 08:00 08:08 10:41 Respiratory 18 16 18 Rate 12/27/18 12:13 Respiratory 16 Rate Oxygen Devices in Use Now: None Appearance: Patient is a 28yo female who appears stated age and is sitting in the bed in NAD. Eyes: No Scleral Icterus, PERRLA Ears/Nose/Mouth/Throat: NL Teeth, Lips, Gums, Clear Oropharnyx, Mucous Membranes Moist Neck: NL Appearance and Movements; NL JVP, Trachea Midline Respiratory: Symmetrical Chest Expansion and Respiratory Effort, Clear to Auscultation Cardiovascular: NL Sounds; No Murmurs; No JVD, RRR, No Edema Abdominal: NL Sounds; No Tenderness; No Distention, No Hepatosplenomegaly Lymphatic: No Cervical Adenopathy Extremities: No Edema, No Clubbing, Cyanosis Skin: No Nodules or Sclerosis, - - Stable area of ecchymosis on left foot. Stable psoriasis. Neurological: Alert and Oriented x 3, NL Sensation, NL Muscle Strength and Tone Result Diagrams: 12/27/18 08:28 12/27/18 08:28 Microbiology and Other Data: Microbiology 12/21/18 11:34 Stool Gross Appearance - Final Stool Stool Lactoferrin - Final Cryptosporidium/Giardia - Final Neg Cryptosporidium/Giardia 12/21/18 08:53 Urine Culture - Final Urine 12/21/18 09:03 Aerobic Blood Culture - Preliminary Blood Venous No Growth Day 1 Anaerobic Blood Culture - Preliminary No Growth Day 1 12/21/18 09:03 Aerobic Blood Culture - Preliminary Blood Venous No Growth Day 1 Anaerobic Blood Culture - Preliminary No Growth Day 1 12/21/18 11:34 Stool Gross Appearance - Final Stool C. difficile DNA Amplification - Final 027 Presumptive NEGATIVE Toxigenic C.diff NEGATIVE 12/21/18 11:34 Stool Gross Appearance - Final Stool Assess/Plan/Problems-Billing Assessment: 28 yo F h/o anxiety/depression presents with 1 month N/V diarrhea, fatigue, LE joint pains found on CT with e/o colitis and/or pyelonephritis who has been having persistent symptoms of fever, malaise and predominant N/V with improvement on empiric steroids. - Patient Problems (1) Fever Current Visit: Yes Status: Acute Code(s): R50.9 - FEVER, UNSPECIFIED SNOMED Code(s): 999317782 Comment: - Extensive infectious and autoimmune workup pending and negative to date. - No colitis on flex sig or biopsy, nothing noted on EGD. - Labs sent reveal normal TPO antibodies - Gastroenteritis with N/V diarrhea in differential but fever and crp seem out of proportion and time course not consistent with infectious cause - Empiric steroids seem to be helping. Afebrile, decreased nausea (2) Inflammation Current Visit: Yes Status: Acute Code(s): VJM5835 - SNOMED Code(s): 124822553 Comment: - Elevated inflammatory markers with predominant abdominal pain with N/V - Inflammatory Markers trending up - Possible reactive arthritis vs Seronegative Spondyloarthropathy vs MONTES vs Celiac - Negative HLA-B27 doesn't rule out Seronegative Spondyloarthropathy. - Continue Rheumatologic workup, appreciate input. Psoriatic Arthritis +/- Gastroenteritis considered most likely at this point. - On steroids, tolerating oral steroids. - MRI ankle to assess for sinovitis and clarify possible diagnosis. (3) Nausea Current Visit: Yes Status: Acute Code(s): R11.0 - NAUSEA SNOMED Code(s): 891220146 Comment: - Somewhat worse than yesterday - Continue Ativan PO, Start Compazine PO. . - Restart low dose IV fluids as patient has only been able to take in a cup of tea and half a sandwich today. (4) Depression Current Visit: Yes Status: Acute Code(s): F32.9 - MAJOR DEPRESSIVE DISORDER , SINGLE EPISODE, UNSPECIFIED SNOMED Code(s): 99505882 Comment: - Euthymic, Continue chronic treatments. Status and Disposition: Inpatient. Disposition pending ability to tolerate adequate PO intake and oral medications.
[2018-12-27] MEDS ORDERED: Lactated Ringers 1000 ML Bag* 1,000 ML IV SCH (16:00)
[2018-12-27] MEDS: Prochlorperazine TAB* 5 MG PO PRN (16:05)
[2018-12-27] MEDS: LORazepam TAB(*) 1 MG PO PRN (16:05)
[2018-12-27] MEDS: Docusate CAP* 100 MG PO SCH (21:26)
[2018-12-28] MEDS: LORazepam TAB(*) 1 MG PO PRN (06:09)
[2018-12-28 06:47] LABS: Hematocrit 34 % (35-47); Hemoglobin 11.2 g/dL (12.0-16.0); Mean Corpuscular HGB Conc 33 g/dL (31-36); Mean Corpuscular Hemoglobin 28 pg (27-31); Mean Corpuscular Volume 85 fL (80-97); Mean Platelet Volume 7.1 fL (7.4-10.4); Platelet Count 480 10^3/uL (150-450); Red Blood Count 3.99 10^6 /uL (3.70-4.87); Red Cell Distribution Width 13 % (10.5-15); White Blood Count 17.9 10^3/uL (3.5-10.8)
[2018-12-28 07:02] LABS: BUN/Creatinine Ratio 11.9 (8-20); Calcium 8.5 mg/dL (8.6-10.3); EGFR Non-African American 80.2 (>60); Potassium 3.4 mmol/L (3.5-5.0)
[2018-12-28] MEDS: Pantoprazole TAB * 40 MG TAB PO SCH (07:12)
[2018-12-28] MEDS: Venlafaxine EXT RELEASE CAP* 75 MG PO SCH (07:12)
[2018-12-28] MEDS: NORETHINDR PO SCH (07:13)
[2018-12-28] MEDS: Propranolol TAB* 20 MG PO SCH (07:13)
[2018-12-28] MEDS: ETH ESTRADIOL PO SCH (07:13)
[2018-12-28] MEDS: predniSONE TAB* 50 MG PO SCH (07:13)
[2018-12-28] MEDS: busPIRone TAB* 10 MG PO SCH (07:13)
[2018-12-28] MEDS: Docusate CAP* 100 MG PO SCH (07:13)
[2018-12-28] MEDS: BuPROPion XL* 300 MG TAB.XL PO SCH (07:13)
[2018-12-28 07:37] LABS: ABS Lymphocytes 2.1 10^3/ul (1.0-4.8); ABS Neutrophils 14.2 10^3/ul (1.5-7.7); Eosinophil % 0.2 %; Nucleated Red Blood Cells % 0.2
[2018-12-28 07:39] LABS: ABS Neutrophils 14.3 10^3/ul (1.5-7.7)
[2018-12-28] MEDS ORDERED: Potassium Chlor TAB* 20 MEQ TAB.ER PO ONE (10:48)
[2018-12-28] MEDS ORDERED: Glycerin ADULT SUPP PR ONE (13:41)
[2018-12-28] MEDS: Prochlorperazine TAB* 5 MG PO PRN (13:45)
[2018-12-28 13:51] VITALS: BP 115/76
--- NOTE | 2018-12-28 20:59 | DS ---
CC: Dr. Irina Clements; Dr. Ghassan Sutton; Dr. Melissa Peralta* DISCHARGE SUMMARY: DATE OF ADMISSION: 12/21/18 DATE OF DISCHARGE: 12/28/18 PRIMARY CARE PROVIDER: Dr. Irina Clements. OUTPATIENT WELDER JOURNEYMAN: Dr. Ghassan Sutton. MY ATTENDING WHILE IN THE HOSPITAL: Dr. Melissa Peralta* (dictated by JESÚS Prince). 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 SECONDARY DISCHARGE DIAGNOSES: 1. Depression and anxiety. 2. Psoriasis. STUDIES DONE WHILE IN THE HOSPITAL: Abdomen and pelvis CT from 12/21/18 read as there is wedge-shaped enhancement defect in the upper pole of the left kidney , mild enlargement of the left kidney is noted and the possibility of pyelonephritis of the left kidney should not be considered, nonobstructing calculi noted in both kidneys. Additionally, there may be some mucosal thickening in the descending colon and sigmoid colon, for which underlying colitis is not excluded. Chest x-ray from 12/21/18, read as no active cardiopulmonary disease. Ankle and foot x-ray from 12/26/18 read as soft tissue swelling, focal osseous abnormality. MEDICATIONS AT DISCHARGE: 1. Yoselin control pills 1 tab p.o. daily. 2. Buspirone 10 mg p.o. daily. 3. Propranolol 20 mg p.o. daily. 4. Venlafaxine 150 mg p.o. daily. 5. Bupropion 300 mg p.o. daily. 6. Omeprazole 20 mg p.o. daily. 7. Tylenol 650 mg p.o. q.4 hours as needed. 8. Docusate 100 mg p.o. b.i.d. 9. Lorazepam 1 mg p.o. q.4 hours as needed for nausea. 10. MiraLAX 17 g p.o. twice daily as needed for constipation. 11. Prednisone 15 mg p.o. daily with taper. 12. Compazine 5 mg p.o. q.6 hours as needed. 13. Senokot 1 tab p.o. at bedtime as needed. New medications at discharge: 1. Tylenol. 2. Docusate. 3. Ativan. 4. MiraLAX. 5. Prednisone. 6. Compazine. 7. Senna. HOSPITAL COURSE: This is a brief summary of the patient's presentation. For more details, please see the history and physical from Raina Hollins NP, on . In brief, the patient is a 28-year-old female with past medical history significant for the above, who has been to the emergency department with approximately 1 month of fatigue, nausea, vomiting, and low-grade fevers. She has been having diarrhea every day, much worse with eating and stabbing abdominal pain. The patient had not been able to keep up with her fluid losses. The patient initially went to urgent care and was referred to the emergency department. She had also joint aches in her knees and ankles and rashes on her shins and the dorsal aspects of her feet. The patient in the emergency department had a CT of her abdomen and pelvis as well showing possible colitis and possible pyelonephritis. The patient was admitted to the hospital, started on antibiotics. The patient had a colonoscopy, which showed no mucosal abnormalities and biopsy of the colon showed no inflammation. The patient was seen in consultation by Dr. Jevon Lakhani of Infectious Disease, who recommended stopping ceftriaxone and checking her for David-Rosenberg and CMV viruses and for continued workup of noninfectious etiology of the patient's symptoms. The patient had no significant improvement in her symptoms initially. The patient continued to be very nauseated and not be able to take any fluids. The patient required intravenous fluid administration, continued to have relatively high fevers up to 101 throughout next several days. The patient was seen in consultation by Dr. Ghassan Sutton of Rheumatology, who sent off connective tissue disease panel, rheumatoid factor, HLA-B27, ASO titer. The patient had protein in her urine as well as white blood cells and red blood cells without any casts. The patient's kidney function was initially mildly decreased and returned down to the normal range with IV hydration. The patient continued to not improve. The patient had an upper endoscopy, which showed only slight gastropathy consistent with patient's retching. Initially, the patient's inflammatory markers increased from her initial presentation to third day of her hospitalization. The patient was then initiated on an empiric course of steroids. The patient felt an almost immediate improvement in her symptoms of nausea, vomiting. The patient had no fevers after the initiation of her steroids. The patient continued to have pain in her ankles. The patient also had a numbness and tingling in her bilateral heels, which improved slightly only after several days. The patient had foot and ankle x-rays as above to assess for possible bony erosions or synovitis. The patient was scheduled to have an MRI, but this was not available. The patient's nausea and vomiting on the day of discharge were able to be fully controlled with Compazine and Ativan dosing as above. The patient has not had a bowel movement in 4 days upon her discharge, but was anxious to go home and was prescribed laxatives as above. The patient was stable and amenable for discharge for close followup with Dr. Ghassan Sutton, Rheumatology on 12/28/18. PHYSICAL EXAM ON THE DAY OF DISCHARGE: General: The patient is a 28-year-old female who appears stated age and sitting comfortably in bed, in no acute distress. Vital Signs: At the time of discharge, temperature 98.3, pulse rate 73, respiratory rate 19, blood pressure 112/75. HEENT: Head: Normocephalic, atraumatic. Sclerae anicteric. No conjunctival injection. Nasal mucosa moist. Oral mucosa moist. No pharyngeal erythema, discharge, or exudate. Neck : Supple, nontender. No lymphadenopathy. No carotid bruits auscultated. No JVD. Cardiac: Regular rate and rhythm. No clicks, murmurs, gallops, or rubs. Pulses are 2+ in the bilateral dorsalis pedis, posterior tibialis, and radial areas. Respiratory: Clear to auscultation. No wheezes, rales, or rhonchi. Good air exchange bilaterally. Abdomen: Soft, nontender, nondistended. Bowel sounds present and normoactive in all 4 quadrants. No hepatosplenomegaly. No abdominal bruits auscultated. No hepatojugular reflux. Genitourinary: No suprapubic or CVA tenderness. Skin: Large area of ecchymosis on the dorsum of the left foot with surrounding erythema. Neurologic: Slightly decreased sensation in the bilateral heels. No other focal deficits. Alert and oriented x3. Psychiatric: Pleasant and cooperative. DISCHARGE PLAN: The patient will be discharged to home. The patient should use Ativan and Compazine for her nausea. The patient should follow up closely with Dr. Sutton for MRI of her ankle and continue evaluation of her inflammatory symptoms. The patient should taper her steroids by 10 mg every 3 days and then down to nothing; however, the patient will be followed up with Dr. Sutton within this time, who may readjust her steroid dosing as indicated. The patient should follow up with her primary care provider within 1 week for general medical management and to ensure continued improvement. The patient should continue to drink as many fluids as she can tolerate. The patient's workup at this point including IgA, rheumatoid factor, CCP, LSIA, ANCA testing, transglutaminase, thyroglobulin, thyroid peroxidase, glomerular basement membrane, HLA-B27, antistreptolysin O, rapid strep, hepatitis, and anticardiolipin testing are all negative. Further workup including celiac testing is still pending. However, the patient's duodenal biopsies were negative for celiac. The patient is instructed that as she tapers her steroids , her psoriasis might flare. The patient should have a regular unrestricted diet and engage in activities as tolerated. The patient should return to the hospital for inability to tolerate oral intake, chest pain, shortness of breath , passing out, or other alarming symptoms. TIME SPENT: Approximately 60 minutes were spent on the discharge of this patient, 30 of which were spent [id number] with the patient obtaining history and physical and discussing treatment plan. JESÚS PRINCE [id number]/CPS #: [id number]/[id number] #: [id number] DEB
[2018-12-28] MEDS ORDERED: Polyethylene Glycol 3350* 17 GM PACKET PO SCH (21:00)
--- NOTE | 2018-12-29 19:50 | DS ---
DISCHARGE SUMMARY: ADDENDUM: PHYSICAL EXAMINATION: Neurologic: Slightly decreased sensation in the bilateral heels. No other focal deficits. Alert and oriented x3. Psychiatric : Pleasant and cooperative. DISCHARGE PLAN: The patient will be discharged to home. The patient should use Ativan and Compazine for her nausea. The patient should follow up closely with Dr. Sutton for MRI of her ankle and continue evaluation of her inflammatory symptoms. The patient should taper her steroids by 10 mg every 3 days and then down to nothing; however, the patient will be followed up with Dr. Sutton within this time, who may readjust her steroid dosing as indicated. The patient should follow up with her primary care provider within 1 week for general medical management and to ensure continued improvement. The patient should continue to drink as many fluids as she can tolerate. The patient's workup at this point including IgA, rheumatoid factor, CCP, LISA, ANCA testing, transglutaminase, thyroglobulin, thyroid peroxidase, glomerular basement membrane, HLA-B27, antistreptolysin O, rapid strep, hepatitis, and anticardiolipin testing are all negative. Further workup including celiac testing is still pending. However, the patient's duodenal biopsies were negative for celiac. The patient is instructed that as she tapers her steroids , her psoriasis might flare. The patient should have a regular unrestricted diet and engage in activities as tolerated. The patient should return to the hospital for inability to tolerate oral intake, chest pain, shortness of breath , passing out, or other alarming symptoms. TIME SPENT: Approximately 60 minutes were spent on the discharge of this patient, 30 of which were spent [id number] with the patient obtaining history and physical and discussing treatment plan. JESÚS PRINCE [id number]/[facility] #: [id number] DEB
== END 2018-12-28 15:35 | disposition home or self-care (01) | DRG 346 ==
LOC: ED 08:06 → MED 13:08 → OBSVTOIN 12-23 14:00
PROVIDERS: ADMIT Internal Medicine; ATTEND Internal Medicine
PROC: 0DDE8ZX Extraction of Large Intestine, Via Natural or Artificial Opening Endoscopic, Diagnostic (ICD-10-PCS; 2018-12-20)
PROC: 0DD98ZX Extraction of Duodenum, Via Natural or Artificial Opening Endoscopic, Diagnostic (ICD-10-PCS; principal; 2018-12-22)
PROC: 0DD68ZX Extraction of Stomach, Via Natural or Artificial Opening Endoscopic, Diagnostic (ICD-10-PCS; 2018-12-22)
PROC: 0DD38ZX Extraction of Lower Esophagus, Via Natural or Artificial Opening Endoscopic, Diagnostic (ICD-10-PCS; 2018-12-22)
DX: L40.50 Arthropathic psoriasis, unspecified (principal); A68.9 Relapsing fever, unspecified; K52.9 Noninfective gastroenteritis and colitis, unspecified; R11.2 Nausea with vomiting, unspecified; L40.9 Psoriasis, unspecified; F32.9 Major depressive disorder, single episode, unspecified; F41.9 Anxiety disorder, unspecified; M12.9 Arthropathy, unspecified; K12.0 Recurrent oral aphthae; R00.0 Tachycardia, unspecified; N28.81 Hypertrophy of kidney; N20.0 Calculus of kidney; J04.0 Acute laryngitis; M25.50 Pain in unspecified joint; D72.829 Elevated white blood cell count, unspecified; K59.00 Constipation, unspecified; Z79.899 Other long term (current) drug therapy; Z88.2 Allergy status to sulfonamides
CPT/HCPCS: 36415; 71046; 74177; 80048; 80053; 80074; 81003; 81015; 81376; 82150; 82306; 82585; 82595; 82607; 82728; 82784; 83516; 83520; 83540; 83550; 83605; 83630; 83690; 83735; 84702; 85025; 85045; 85652; 86038; 86060; 86140; 86147; 86200; 86376; 86431; 86644; 86645; 86664; 86665; 86780; 86800; 86812; 87040; 87045; 87046; 87077; 87086; 87177; 87209; 87328; 87329; 87476; 87491; 87493; 87591; 87651; 87798; 87899; 88305; 93005; 99156; 99157; 99285; A9270-GY; G0378; J0696; J0780; J1885; J2060; J2250; J2405; J2543; J2765; J2920; J3010; J3370; J7512; Q9967

== ENCOUNTER 2019-01-08 10:32 | Observation (INO) | payer OTHER ==
[2019-01-08 11:33] LABS: Hematocrit 39 % (35-47); Hemoglobin 12.5 g/dL (12.0-16.0); Mean Corpuscular HGB Conc 32 g/dL (31-36); Mean Corpuscular Hemoglobin 28 pg (27-31); Mean Corpuscular Volume 86 fL (80-97); Mean Platelet Volume 6.8 fL (7.4-10.4); Platelet Count 377 10^3/uL (150-450); Red Cell Distribution Width 15 % (10-15); White Blood Count 26.5 10^3/uL (3.5-10.8)
[2019-01-08 11:53] LABS: Albumin 3.4 g/dL (3.2-5.2); Anion Gap 9 mmol/L (2-11); CO2 Carbon Dioxide 29 mmol/L (22-32); Calcium 9.2 mg/dL (8.6-10.3); Chloride 100 mmol/L (101-111); Potassium 3.3 mmol/L (3.5-5.0); Sodium 138 mmol/L (135-145)
[2019-01-08 11:59] LABS: ALT 19 U/L (7-52); AST 11 U/L (13-39); Albumin/Globulin Ratio 1.2 (1-3); Alkaline Phosphatase 95 U/L (34-104); BUN/Creatinine Ratio 16.1 (8-20); Blood Urea Nitrogen 14 mg/dL (6-24); EGFR African American 93.1 (>60); Globulin 2.9 g/dL (2-4); Glucose 97 mg/dL (70-100); Total Protein 6.3 g/dL (6.4-8.9)
[2019-01-08 12:00] LABS: HCG Pregnancy < 0.60 mIU/mL
[2019-01-08 12:50] LABS: ABS Basophils 0.2 10^3/ul (0-0.2); ABS Eosinophils 0.3 10^3/ul (0-0.6); ABS Lymphocytes 3.5 10^3/ul (1.0-4.8); ABS Monocytes 2.1 10^3/ul (0-0.8); ABS Neutrophils 20.4 10^3/ul (1.5-7.7); Eosinophil % 1.2 %; Lymphocyte % 13.3 %; Nucleated Red Blood Cells % 0.1
[2019-01-08] MEDS ORDERED: Acetaminophen TAB* 325 MG PO ONE (12:58)
--- NOTE | 2019-01-08 13:06 | ED ---
Abdominal Pain/Female - HPI Summary HPI Summary: Patient is a 28 y/o F presenting to [facility] with complaints of abdominal pain, joint pain, N/V/D for the past two months. She additionally notes decreased appetite, diaphoresis, chills, and intermittent low grade fevers. She reports having 5-20 bowel movements daily. Abdominal pain is described as diffuse and cramping. Joint pain is additionally described as diffuse. Sx have exacerbated today. Vaginal discharge and dysuria are denied. The patient had been seen at [facility] for similar Sx a few weeks ago in mid-Dec, 2018. She was admitted to [facility]. Endoscopy and colonscopy were done and both negative. Patient states that there were concerns that she had psoriatic arthitis, but she is unsure if she was actually diagnosed with this. Patient is being followed by Dr. Sutton, who she saw last week, around nine days ago. She denies FMHx of Crohn's or ulcerative colitis. Patient notes that she is not followed by GI in office. She additionally states that she is followed by Dr. Campbell, but she is unable to articulate why she is followed by him. Patient states that she had no previous health issues before two months ago and states that she had been "healthy". Dr. Clements has been the patient's PCP for the past month, with Dr. Alcocer- Friend in [facility] having been her prior PCP. She is a non-smoker and denies alcohol usage. PMHx of kindey stones, asthma, arthritis, depression, anxiety. Pt denies any erythema of eyes, sore throat, CP, SOB, cough, dysuria, hematuria, edema, rash, or dizziness. On triage, pain is rated 9/10, nothing is noted to aggravate/alleviate Sx. Home medications and allergies are reviewed. - History of Current Complaint Chief Complaint: EDAbdPain Stated Complaint: ABD PAIN, DIAHERRA, JOINT PAIN PER PT Time Seen by Provider: 01/08/19 12:38 Hx Obtained From: Patient Hx Last Menstrual Period: 2 weeks ago Onset/Duration: Lasting Weeks - two months, Still Present Timing: Weeks - two months Severity Currently: Severe Pain Intensity: 9 Pain Scale Used: 0-10 Numeric Location: Diffuse Character: Cramping Aggravating Factor(s): Nothing Alleviating Factor(s): Nothing Associated Signs and Symptoms: Positive: Diaphoresis, Fever, Decreased Appetite , Nausea, Vomiting, Diarrhea, Other: - denies any erythema of eyes, sore throat , SOB, edema, rash. patient reports chills, diffuse jonit pain,. Negative: Cough, Chest Pain, Dizzy, Urinary Symptoms, Vaginal Discharge Allergies/Adverse Reactions: Allergies Allergy/AdvReac Type Severity Reaction Status Date / Time Sulfa (Sulfonamide Allergy Hives Verified 01/08/19 10:42 Antibiotics) PMH/Surg Hx/FS Hx/Imm Hx Endocrine/Hematology History: Denies: Hx Diabetes, Hx Thyroid Disease Cardiovascular History: Denies: Hx Hypertension Respiratory History: Reports: Hx Asthma Denies: Hx Chronic Obstructive Pulmonary Disease (COPD) GI History: Denies: Hx Ulcer History: Reports: Hx Kidney Stones Musculoskeletal History: Reports: Hx Arthritis Denies: Hx Scoliosis Sensory History: Denies: Hx Contacts or Glasses, Hx Hearing Aid Opthamlomology History: Denies: Hx Contacts or Glasses Neurological History: Denies: Hx Headaches, Other Neuro Impairments/Disorders Psychiatric History: Reports: Hx Anxiety, Hx Depression Infectious Disease History: No Infectious Disease History: Denies: Hx Hepatitis, Hx Human Immunodeficiency Virus (HIV), Traveled Outside the [place] in Last 30 Days - Family History Known Family History: Positive: Cardiac Disease, Hypertension, Diabetes, Other - No FMHx of crohn's disease or ulcertive colitis - Social History Alcohol Use: None Hx Substance Use: No Substance Use Type: Reports: None Hx Tobacco Use: No Smoking Status (MU): Never Smoked Tobacco Have You Smoked in the Last Year: No Review of Systems Positive: Fever, Chills, Skin Diaphoresis Negative: Erythema Negative: Sore Throat Negative: Chest Pain Negative: Shortness Of Breath, Cough Gastrointestinal: Other - POSITIVE - DECREASED APPETITE Positive: Abdominal Pain, Vomiting, Nausea Negative: dysuria, discharge - VAGINAL , hematuria Negative: Edema Negative: Rash Neurological: Other - NEGATIVE - DIZZINESS All Other Systems Reviewed And Are Negative: Yes Physical Exam - Summary Physical Exam Summary: Constitutional: Well-developed, Well-nourished, Alert. (-) Distressed Skin: Warm, Dry HENT: Normocephalic; Atraumatic Eyes: Conjunctiva normal Neck: Musculoskeletal ROM normal neck. (-) JVD, (-) Stridor, (-) Tracheal deviation Cardio: Rhythm regular, rate normal, Heart sounds normal; Intact distal pulses; The pedal pulses are 2+ and symmetric. Radial pulses are 2+ and symmetric. (-) Murmur Pulmonary/Chest wall: Effort normal. (-) Respiratory distress, (-) Wheezes, (-) Rales Abd: Soft, (+) mild lower abdominal tenderness, (-) Distension, (-) Guarding, (- ) Rebound Musculoskeletal: (-) Edema Lymph: (-) Cervical adenopathy Neuro: Alert, Oriented x3 Psych: Mood and affect Normal Triage Information Reviewed: Yes Vital Signs On Initial Exam: Initial Vitals Temp Pulse Resp BP Pulse Ox 98.4 F 110 18 133/92 99 01/08/19 10:34 01/08/19 10:34 01/08/19 10:34 01/08/19 10:34 01/08/19 10:34 Vital Signs Reviewed: Yes Diagnostics - Vital Signs Vital Signs Temp Pulse Resp BP Pulse Ox 01/08/19 12:15 98.9 F 117 20 127/85 98 01/08/19 10:34 98.4 F 110 18 133/92 99 - Laboratory Lab Results: Lab Results 01/08/19 01/08/19 01/08/19 Range/Units 11:24 11:24 11:24 WBC 26.5 H (3.5-10.8) 10^3/uL RBC 4.50 (3.70-4.87) 10^6 /uL Hgb 12.5 (12.0-16.0) g/dL Hct 39 (35-47) % MCV 86 (80-97) fL MCH 28 (27-31) pg MCHC 32 (31-36) g/dL RDW 15 (10-15) % Plt Count 377 (150-450) 10^3/uL MPV 6.8 L (7.4-10.4) fL Neut % (Auto) Pending Lymph % (Auto) Pending Hopkins % (Auto) Pending Eos % (Auto) Pending Baso % (Auto) Pending Absolute Neuts (auto) Pending Absolute Lymphs (auto) Pending Absolute Monos (auto) Pending Absolute Eos (auto) Pending Absolute Basos (auto) Pending Absolute Nucleated RBC Pending Nucleated RBC % Pending Sodium 138 (135-145) mmol/L Potassium 3.3 L (3.5-5.0) mmol/L Chloride 100 L (101-111) mmol/L Carbon Dioxide 29 (22-32) mmol/L Anion Gap 9 (2-11) mmol/L BUN 14 (6-24) mg/dL Creatinine 0.87 (0.51-0.95) mg/dL Est GFR ( Amer) 93.1 (>60) Est GFR (Non-Af Amer) 77.0 (>60) BUN/Creatinine Ratio 16.1 (8-20) Glucose 97 (70-100) mg/dL Lactic Acid 2.6 H* (0.5-2.0) mmol/L Calcium 9.2 (8.6-10.3) mg/dL Total Bilirubin 0.30 (0.2-1.0) mg/dL AST 11 L (13-39) U/L ALT 19 (7-52) U/L Alkaline Phosphatase 95 (34-104) U/L C-Reactive Protein 11.40 H (<8.01) mg/L Total Protein 6.3 L (6.4-8.9) g/dL Albumin 3.4 (3.2-5.2) g/dL Globulin 2.9 (2-4) g/dL Albumin/Globulin Ratio 1.2 (1-3) Lipase 38 (11.0-82.0) U/L Beta HCG, Quant < 0.60 mIU/mL Result Diagrams: 01/08/19 11:24 01/08/19 11:24 Lab Statement: Any lab studies that have been ordered have been reviewed, and results considered in the medical decision making process. - CT ABD/PEL CT CT Interpretation Completed By: Radiologist Summary of CT Findings: IMPRESSION: NO ACUTE CT PATHOLOGY OF THE VISUALIZED ABDOMEN OR PELVIS. THIS REPORT WAS REVIEWED BY DR. ALMENDAREZ. Re-Evaluation - Re-Evaluation First Eval Re-Evaluation Time: 16:04 Comment: Bloodwork reviewed with patient, CT pending at this time. Abdominal Pain Fem Course/Dx - Course Course Of Treatment: Patient is a 28 y/o F presenting to [facility] with complaints of abdominal pain, joint pain, N/V/D for the past two months. She additionally notes decreased appetite, diaphoresis, chills, and intermittent low grade fevers. She reports having 5-20 bowel movements daily. Abdominal pain is described as diffuse and cramping. Joint pain is additionally described as diffuse. Sx have exacerbated today. Vaginal discharge and dysuria are denied. The patient had been seen at [facility] for similar Sx a few weeks ago in mid-Dec, 2018. She was admitted to [facility]. Endoscopy and colonscopy were done and both negative. Patient states that there were concerns that she had psoriatic arthitis, but she is unsure if she was actually diagnosed with this. Patient is being followed by Dr. Sutton, who she saw last week, around nine days ago. She denies FMHx of Crohn's or ulcerative colitis. On physical exam, mild lower abdominal tenderness is noted. Labs showed WBC 26.5, MPV 6.8, absolute neuts 20.4, absolute monos 2.1, potassium 3.3, chloride 100. First lactic 2.6, second 1.2. AST 11, CRP 11.4, total protein 6.3, lipase 38, Beta HCG < 0.60. UA showed 2+ blood, trace WBC, 1+ RBC, squamous epith cells. CT ABD/PEL IMPRESSION : NO ACUTE CT PATHOLOGY OF THE VISUALIZED ABDOMEN OR PELVIS. During ED course , patient received Zofran 4 mg IV, Toradol 15 mg IV, Tylenol 975 mg PO, and fluids. 1823 - Patient's case was discussed with Dr. Royal. 2042 - Patient's case was discussed with Dr. Kwaku Anderson accepted for admission and placed admission orders at this time. - Diagnoses Provider Diagnoses: Clostridium difficile carrier, Polyarthralgia - Provider Notifications Discussed Care Of Patient With: Anna Royal Time Discussed With Above Provider: 18:24 Instructed by Provider To: Other - 1823 - Patient's case was discussed with Dr. Royal. 2042 - Patient's case was discussed with Dr. Kwaku Anderson accepted for admission and placed admission orders at this time. Discharge - Sign-Out/Discharge Documenting (check all that apply): Patient Departure - admit Patient Received Moderate/Deep Sedation with Procedure: No - Discharge Plan Condition: Good Disposition: ADMITTED TO [facility] Referrals: Irina Clements MD [Primary Care Provider] - - Attestation Statements Document Initiated by Scribe: Yes Documenting Scribe: SUSU GUILLEN Provider For Whom Scribe is Documenting (Include Credential): LINDSAY ALMENDAREZ MD Scribe Attestation: SUSU Villavicencio, scribed for LINDSAY ALMENDAREZ MD on 01/08/19 at 2138. Status of Scribe Document: Ready
[2019-01-08 13:19] LABS: Urine Appearance Clear; Urine Bacteria Absent (Absent); Urine Bilirubin Negative (Negative); Urine Blood 2+ (Negative); Urine Color Yellow; Urine Glucose Negative (Negative); Urine Ketones Negative (Negative); Urine Nitrite Negative (Negative); Urine Protein Negative (Negative); Urine Red Blood Cell 1+(3-5/hpf) (Absent); Urine Specific Gravity 1.011 (1.010-1.030); Urine Squamous Epithelial Cell Present (Absent); Urine Urobilinogen Negative (Negative); Urine White Blood Cell Trace(0-5/hpf) (Absent)
[2019-01-08] MEDS ORDERED: Iohexol 300* (CONTRAST) 10 ML SDV IV ONE (15:08)
[2019-01-08] MEDS ORDERED: Ondansetron INJ* 2 MG/ML VIAL IV ONE (15:24)
[2019-01-08] MEDS ORDERED: Ketorolac INJ* 30 MG/ML 1 ML VIAL IV PUSH ONE (16:36)
[2019-01-08] MEDS ORDERED: NS 0.9% 1000 ML** 1,000 ML IV ONE (18:23)
[2019-01-08] MEDS ORDERED: metroNIDAZOLE TAB* 250 MG PO ONE (19:21)
[2019-01-08] MEDS ORDERED: Prochlorperazine TAB* 5 MG PO PRN (20:37)
[2019-01-08] MEDS ORDERED: Senna TAB PO PRN (20:37)
[2019-01-08] MEDS ORDERED: Acetaminophen TAB* 325 MG PO PRN (20:37)
[2019-01-08] MEDS ORDERED: LORazepam TAB(*) 1 MG PO PRN (20:37)
[2019-01-08] MEDS ORDERED: Ondansetron INJ* 2 MG/ML VIAL IV PRN (20:43)
[2019-01-08] MEDS ORDERED: Docusate CAP* 100 MG PO SCH (21:00)
[2019-01-08] MEDS ORDERED: Polyethylene Glycol 3350* 17 GM PACKET PO SCH (21:00)
[2019-01-08] MEDS: NS 0.9% 1000 ML** 1,000 ML IV SCH (21:55)
[2019-01-08] MEDS: Vancomycin CAP* 125 MG CAP PO SCH (22:16)
--- NOTE | 2019-01-08 22:26 | HP ---
CC: Dr. Irina Clements; Dr. Sutton * ADMISSION HISTORY AND PHYSICAL: DATE OF ADMISSION: 01/08/19 PRIMARY CARE PROVIDER: Dr. Irina Clements. USER INTERFACE ARTIST: Dr. Sutton. CODE STATUS: Full. SOURCE OF INFORMATION: History obtained from interview with the patient and review of past medical records. RELIABILITY: Good. CHIEF COMPLAINT: Abdominal pain and diarrhea. HISTORY OF PRESENT ILLNESS: This is a 28-year-old female with recent hospital stay at [facility] from 12/21/18 to 12/28/18 with multiple joint pain, abdominal pain, nausea, vomiting. The stay was notable for notable inflammation, evidence of colitis on a CAT scan; however , negative EGD and colonoscopy, was seen in conjunction with Dr. Sutton, ultimately started on steroids with some improvement, and discharged home. She was feeling better after discharged home with decreased joint pain and improved nausea, no diarrhea. However, shortly after 12/30/18 or 12/31/18, she started to develop nausea again as well as increasing joint pain which now involves all of her small and large joints including toes, ankles, knees, hips, fingers, wrists, elbows, and shoulders, whereas previously it was more isolated, as well as increasing diarrhea. She notes that her diarrhea is worse after eating food or liquids, particularly bad over night and somewhat better in the morning. She developed abdominal pain that has worsened over the last 24 to 48 hours, described as diffuse, stabbing, bloating, fullness that is constant and worse today. She notes that she contacted her leather toggler, indicated the worsening abdominal pain, and she was advised to proceed to [facility] ED. She denies any fevers since discharge from the hospital, which she had been having episodically. She notes her steroids were tapered down to 20 mg, but increased to 50 yesterday by her leather toggler. PAST MEDICAL HISTORY: Includes: 1. Anxiety and depression. 2. Psoriasis. 3. Concern for psoriatic arthritis. 4. Concern for an inflammatory bowel disorder, not yet identified. MEDICATIONS: Home medications, unchanged from discharge, include: 1. Prednisone 50 mg daily. 2. BuSpar 10 mg daily. 3. Bupropion 300 mg daily. 4. Venlafaxine 150 mg daily. 5. Senna 1 tablet at bedtime as needed. 6. Propranolol 20 mg daily. 7. Compazine 5 mg every 6 hours as needed. 8. MiraLAX 17 g twice daily. 9. Omeprazole 20 mg daily. 10. Oral contraceptive pill daily. 11. Lorazepam 1 mg every 4 hours as needed for nausea. 12. Docusate 100 mg twice daily. 13. Acetaminophen 650 mg every 4 hours as needed for pain or fever. ALLERGIES: SULFA. FAMILY HISTORY: Reviewed. Negative for mother and father. No CAD. No known inflammatory disorders or autoimmune disorders. SOCIAL HISTORY: No tobacco, alcohol, or drugs. Mother is her healthcare proxy. REVIEW OF SYSTEMS: As per HPI, otherwise all other systems negative. PHYSICAL EXAMINATION GENERAL: Well-appearing female, sitting up, interacts, pleasant, in no apparent distress. VITAL SIGNS: In the emergency room, T-max 98.9, 126/85, 98% on room air, respiratory rate is between 9 and 20, heart rate is 100 at the time of my interview. HEENT: Oropharynx is clear. She has moist mucous membranes. Sclerae are anicteric. NECK: She has non-elevated JVD. No supraclavicular or cervical lymphadenopathy. LUNGS: Clear to auscultation. HEART: Heart rate is tachycardic, but regular. No murmurs, rubs, or gallops. ABDOMEN: Soft. Diffuse tenderness throughout. No rebound or guarding. EXTREMITIES: Warm and well perfused. Minimal psoriasis in her lower extremities. NEUROLOGIC: She is alert and oriented x3. Her cranial nerves II through XII are intact. She has no apparent anxiety, agitation, or depression. PERTINENT LABORATORY DATA: White blood cell count is 26,500, 76% neutrophils , hemoglobin 12.5, platelets 377. Sodium is 135, potassium 3.3, bicarb 29, BUN 14, creatinine 0.87. Lactic acid 2.6, normalized to 1.2. CRP is 11. DATA REVIEWED: CT abdomen and pelvis: No acute CT pathology of the visualized abdomen and pelvis. ASSESSMENT AND PLAN: This is a 28-year-old female with complicated course at [facility] recently with polyarticular joint pain and fevers that abated with steroids , now returning with worsening abdominal pain and diarrhea in the setting of newly positive Clostridium difficile stool sample. Clostridium difficile colitis: Negative in December, now positive in the setting of increasing diarrhea. The patient received minimal antibiotics on day #1 and possibly day #2 of her previous hospital stay and then none after; however, she is on steroids. Steroids may be contributing to elevated leukocytosis, however , I do not suspect to this degree. The patient is tolerating oral now, was started on p.o. vancomycin; however, if unable to tolerate oral medication, we will transition to metronidazole. Received fluid in the emergency room, we will continue 150 cc of normal saline continuously. Antiemetic regimen as per home regimen. I note that she was prescribed senna as well as MiraLAX as well as Colace on her last hospital stay for constipation. Unclear whether this is contributing to diarrhea, however, I will discontinue all of the above and monitor for improvement. Anxiety and depression: Continue home medication. Please note the lorazepam was previously prescribed for nausea and she had some intolerance to Compazine which seems to work at this time. Depression: Continue home medications including BuSpar, bupropion. Psoriatic arthritis: Diagnosis is not for certain based on the patient report of leather toggler's impression as well as clinical impression from previous hospital stay. Continue prednisone 50 p.o. DVT prophylaxis: Low risk. Ambulate ad giovanna. [id number]/[facility] #: [id number] [facility]
[2019-01-08] MEDS ORDERED: Morphine INJ* 2 MG/ML 1 ML SYRINGE (TWO MG - NEW SYRINGE VERSION) IV PRN (23:15)
[2019-01-09] MEDS: NS 0.9% 1000 ML** 1,000 ML IV SCH ×3 (04:45→17:46)
[2019-01-09] MEDS: Propranolol TAB* 20 MG PO SCH (07:21)
[2019-01-09] MEDS: busPIRone TAB* 10 MG PO SCH (07:22)
[2019-01-09] MEDS: predniSONE TAB* 50 MG PO SCH (07:22)
[2019-01-09] MEDS: Pantoprazole TAB * 40 MG TAB PO SCH (07:22)
[2019-01-09] MEDS: Vancomycin CAP* 125 MG CAP PO SCH ×4 (07:22→22:00)
[2019-01-09] MEDS: Venlafaxine EXT RELEASE CAP* 75 MG PO SCH (07:22)
[2019-01-09] MEDS: BuPROPion XL* 300 MG TAB.XL PO SCH (07:22)
[2019-01-09] MEDS ORDERED: ETHINYL ESTRADIOL PO SCH (09:00)
[2019-01-09] MEDS ORDERED: IRON PO SCH (09:00)
[2019-01-09] MEDS ORDERED: NORETHINDRONE PO SCH (09:00)
[2019-01-09] MEDS: NORETHINDRONE E ESTRADIOL IRON PO SCH (11:35)
--- NOTE | 2019-01-09 13:24 | PN ---
Subjective Date of Service: 01/09/19 Interval History: Pt c/o nausea due to clears only diet. C/o diffuse sharp abd pain. Diarrhea up to 5 BM's/day and nausea with intermittent vomiting x 2 months. Unintentionally lost 10 lbs wt Objective Active Medications: Acetaminophen (Tylenol Tab*) 650 mg PO Q4H PRN PRN Reason: FEVER/PAIN Bupropion HCl (Bupropion Xl*) 300 mg PO DAILY [facility] Last Admin: 01/09/19 07:22 Dose: 300 mg Buspirone HCl (Buspar Tab*) 10 mg PO DAILY [facility] Last Admin: 01/09/19 07:22 Dose: 10 mg Sodium Chloride (Ns 0.9% 1000 Ml) 1,000 mls @ 150 mls/hr IV PER RATE [facility] Last Admin: 01/09/19 11:36 Dose: 150 mls/hr Lorazepam (Ativan Tab(*)) 1 mg PO Q4H PRN PRN Reason: NAUSEA Morphine Sulfate (Morphine Inj (Syringe))*) 2 mg IV Q4H PRN PRN Reason: PAIN - MILD Last Admin: 01/09/19 07:16 Dose: 2 mg Pto: Norethindrone-E .Estradiol-Iron [ Yoselin 24 Fe 1 Mg-20 Mcg Tablet] 1 Tab) 1 tab PO DAILY [facility] Last Admin: 01/09/19 11:35 Dose: 1 tab Ondansetron HCl (Zofran Inj*) 4 mg IV Q4H PRN PRN Reason: NAUSEA/VOMITING Last Admin: 01/09/19 07:16 Dose: 4 mg Pantoprazole Sodium (Protonix Tab*) 40 mg PO DAILY [facility] Last Admin: 01/09/19 07:22 Dose: 40 mg Prednisone (Deltasone Tab*) 50 mg PO DAILY [facility] Last Admin: 01/09/19 07:22 Dose: 50 mg Prochlorperazine (Compazine Tab*) 5 mg PO Q6H PRN PRN Reason: NAUSEA Last Admin: 01/09/19 11:13 Dose: 5 mg Propranolol HCl (Inderal Tab*) 20 mg PO DAILY [facility] Last Admin: 01/09/19 07:21 Dose: 20 mg Vancomycin HCl (Vancomycin Cap*) 125 mg PO QID [facility] Last Admin: 01/09/19 12:12 Dose: 125 mg Venlafaxine HCl (Effexor Xr Cap*) 150 mg PO DAILY [facility] Last Admin: 01/09/19 07:22 Dose: 150 mg Vital Signs - 8 hr 01/09/19 01/09/19 01/09/19 07:00 07:16 08:00 Temperature 97.8 F Pulse Rate 73 Respiratory 18 18 18 Rate Blood Pressure 107/70 (mmHg) O2 Sat by Pulse 99 Oximetry 01/09/19 08:27 Temperature Pulse Rate Respiratory 18 Rate Blood Pressure (mmHg) O2 Sat by Pulse Oximetry Oxygen Devices in Use Now: None Appearance: 28 yo F in nAD, aAOx3 Eyes: No Scleral Icterus, PERRLA Ears/Nose/Mouth/Throat: NL Teeth, Lips, Gums, Mucous Membranes Moist Neck: NL Appearance and Movements; NL JVP, Trachea Midline Respiratory: Symmetrical Chest Expansion and Respiratory Effort, Clear to Auscultation Cardiovascular: NL Sounds; No Murmurs; No JVD, RRR Abdominal: - - soft, diffuse tenderness, no rebound, no guarding, BS+ Extremities: No Edema Skin: No Rash or Ulcers, No Nodules or Sclerosis Neurological: Alert and Oriented x 3, NL Muscle Strength and Tone Result Diagrams: 01/08/19 11:24 01/08/19 11:24 Additional Lab and Data: Lab Results 01/08/19 01/08/19 01/08/19 Range/Units 11:24 11:24 11:24 WBC 26.5 H (3.5-10.8) 10^3/uL RBC 4.50 (3.70-4.87) 10^6 /uL Hgb 12.5 (12.0-16.0) g/dL Hct 39 (35-47) % MCV 86 (80-97) fL MCH 28 (27-31) pg MCHC 32 (31-36) g/dL RDW 15 (10-15) % Plt Count 377 (150-450) 10^3/uL MPV 6.8 L (7.4-10.4) fL Neut % (Auto) Pending Lymph % (Auto) Pending Ponce % (Auto) Pending Eos % (Auto) Pending Baso % (Auto) Pending Absolute Neuts (auto) Pending Absolute Lymphs (auto) Pending Absolute Monos (auto) Pending Absolute Eos (auto) Pending Absolute Basos (auto) Pending Absolute Nucleated RBC Pending Nucleated RBC % Pending Sodium 138 (135-145) mmol/L Potassium 3.3 L (3.5-5.0) mmol/L Chloride 100 L (101-111) mmol/L Carbon Dioxide 29 (22-32) mmol/L Anion Gap 9 (2-11) mmol/L BUN 14 (6-24) mg/dL Creatinine 0.87 (0.51-0.95) mg/dL Est GFR ( Amer) 93.1 (>60) Est GFR (Non-Af Amer) 77.0 (>60) BUN/Creatinine Ratio 16.1 (8-20) Glucose 97 (70-100) mg/dL Lactic Acid 2.6 H* (0.5-2.0) mmol/L Calcium 9.2 (8.6-10.3) mg/dL Total Bilirubin 0.30 (0.2-1.0) mg/dL AST 11 L (13-39) U/L ALT 19 (7-52) U/L Alkaline Phosphatase 95 (34-104) U/L C-Reactive Protein 11.40 H (<8.01) mg/L Total Protein 6.3 L (6.4-8.9) g/dL Albumin 3.4 (3.2-5.2) g/dL Globulin 2.9 (2-4) g/dL Albumin/Globulin Ratio 1.2 (1-3) Lipase 38 (11.0-82.0) U/L Beta HCG, Quant < 0.60 mIU/mL Microbiology and Other Data: Microbiology 01/08/19 12:55 Urine Culture - Final Urine 01/08/19 18:12 Stool Gross Appearance - Final Stool C. difficile DNA Amplification - Final 027 Presumptive NEGATIVE Toxigenic C.diff POSITIVE Assess/Plan/Problems-Billing Assessment: 28 yo F with h/o psoriatic arthritis and recent admission(1 week ago ) for exacerbation of arthritis with EGD/colonoscopy performed at this time - unremarkable(esophagus-inflammation, colon-benign) presents with diarrhea and nausea - Patient Problems (1) Clostridium difficile enterocolitis Comment: cont Vanc PO Pt nad family requested GI consult-notified Dr. Novoa's office as per pt request will abvance diet to soft (2) Psoriatic arthritis Comment: cont Prednisone 50 mg Pt f/u with Dr. Sutton as outpatient (3) DVT prophylaxis Comment: low risk, ambulation Status and Disposition: cont OBV
--- NOTE | 2019-01-09 15:59 | CONS ---
CONSULTATION REPORT: DATE OF CONSULT: 01/09/19 REQUESTING PHYSICIAN: Dr. Nye. INDICATION: C. diff. NARRATIVE: Ms. Whitman is a pleasant 28-year-old female, well known to myself. I did perform a colonoscopy on her that was completely normal during her last hospitalization. The patient states that she has been having for about the past week worsening nausea. A few days after that, she developed diarrhea and then over the past 48 hours, she has developed worsening abdominal pain. She denies any fevers or chills. She did have some blood work and it was noted that her white count was very elevated. She came to the emergency room and was diagnosed with C. diff and admitted to the hospital. The patient has been started on vancomycin already. She has been on steroids. Additionally, she did receive antibiotics during her hospitalization not too long ago. Currently , she feels about the same as when she came in. No family history of C. diff. Nausea is slightly better. No other complaints at this time. PAST MEDICAL HISTORY: Significant for possible psoriatic arthritis, psoriasis, anxiety, depression. MEDICATIONS: Include: 1. Prednisone 50 mg a day. 2. BuSpar 10 mg a day. 3. Bupropion 300 mg. 4. Venlafaxine 150 mg. 5. Propranolol 20. 6. Omeprazole 20 mg. ALLERGIES: To SULFA. FAMILY HISTORY: No inflammatory bowel disease in the family. SOCIAL HISTORY: She denies any tobacco, alcohol, or IV drugs. REVIEW OF SYSTEMS: Twelve systems were reviewed and other than that mentioned in the HPI, were unremarkable. PHYSICAL EXAM: Temperature is 97.2, blood pressure is 111/76, pulse is 85, respiratory rate of 15, O2 sat is 98%. General: Mildly ill-appearing female, in no apparent distress, alert, oriented, pleasant, fluent. HEENT: Mucous membranes are moist without lesions, ulcers, or exudate. Neck is supple. Trachea is midline. Heart: Regular rate and rhythm. Lungs: Clear to auscultation. Abdomen: Positive bowel sounds. Soft. Mild diffuse tenderness. No rebound, no guarding. No masses were palpable. Skin is warm and dry. DIAGNOSTIC STUDIES/LAB DATA: Labs: Of note, white count is 26.5, hemoglobin is 12.5, platelets of 377. Chemistry shows CRP of 11, lactic acid of 1.2. She also had a positive C. diff from yesterday at 6:12 p.m. She also has a CT abdomen and pelvis from yesterday, which shows no acute pathology. ASSESSMENT AND PLAN: A 28-year-old female with possible psoriatic arthritis, who is on steroids, who comes in with very elevated white count, diarrhea, and a positive Clostridium difficile. She has already been started on vancomycin 125 mg p.o. 4 times a day. She is tolerating this well. We will continue to follow along. [id number]/[facility] #: [id number] [facility] CENTERIqra
[2019-01-10] MEDS: NS 0.9% 1000 ML** 1,000 ML IV SCH (08:09)
[2019-01-10] MEDS: Vancomycin CAP* 125 MG CAP PO SCH (08:10)
[2019-01-10] MEDS: Venlafaxine EXT RELEASE CAP* 75 MG PO SCH (08:11)
[2019-01-10] MEDS: busPIRone TAB* 10 MG PO SCH (08:11)
[2019-01-10] MEDS: BuPROPion XL* 300 MG TAB.XL PO SCH (08:11)
[2019-01-10] MEDS: Pantoprazole TAB * 40 MG TAB PO SCH (08:11)
[2019-01-10] MEDS: predniSONE TAB* 50 MG PO SCH (08:11)
[2019-01-10] MEDS: Propranolol TAB* 20 MG PO SCH (08:11)
[2019-01-10] MEDS: NORETHINDRONE E ESTRADIOL IRON PO SCH (08:12)
[2019-01-10 08:34] VITALS: BP 123/86
[2019-01-10 08:41] LABS: BUN/Creatinine Ratio 9.5 (8-20); Calcium 7.9 mg/dL (8.6-10.3); EGFR Non-African American 80.2 (>60); Potassium 3.6 mmol/L (3.5-5.0)
--- NOTE | 2019-01-10 13:47 | DS ---
CC: Dr. Sutton; Dr. Novoa; Dr. Dominguez; Dr. Clements DISCHARGE SUMMARY: DATE OF ADMISSION: 01/08/19 DATE OF DISCHARGE: To home, 01/10/19. PRIMARY CARE PROVIDER: Dr. Clements. CONDITION ON DISCHARGE: Stable. DISPOSITION ON DISCHARGE: Discharged to home. DISCHARGE DIAGNOSIS: Clostridium difficile enterocolitis. SECONDARY DIAGNOSES: 1. History of psoriatic arthritis. 2. History of anxiety and depression. MEDICATIONS AT DISCHARGE: Include vancomycin 125 mg p.o. 4 times a day for a total of [address] op. Remaining medications are unchanged apart from discontinuation of the patient's laxatives and include : 1. Bupropion XL 300 mg daily. 2. BuSpar 10 mg daily. 3. control pill "Yoselin" 1 tablet daily. 4. Omeprazole 20 mg daily. 5. Propranolol 20 mg daily. 6. Effexor 150 mg daily. 7. Acetaminophen on a p.r.n. basis. 8. Lorazepam on a p.r.n. basis. 9. Zofran 4 mg every 8 hours p.r.n. 10. Prednisone 50 mg daily. LABORATORY DATA AND STUDIES PERFORMED DURING THE HOSPITAL STAY: Included: Parasite exam from the [facility] is pending. Stool for C. diff was positive for toxicogenic C. diff, negative for the strain of 027. On 01/10/19, sodium of 140, potassium 3.6, chloride 105, carbon dioxide 28, BUN 8, creatinine 0.84. CONSULTATION DURING HOSPITAL STAY: Included Dr. Novoa from Gastroenterology. CT of abdomen obtained on 01/08/19, impression: "No acute CT pathology of visualized abdomen and pel vis." HOSPITALIZATION COURSE: Avril Whitman is a 28-year-old female who was hospitalized a week prior for qu estionable UTI that was later on ruled out, but treated briefly with ceftriaxone. 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 She had been under the care of Dr. Sutton and she is currently on prednisone 50 mg daily. She presented to the [facility] complaining of nausea, vomiting, diarrhea, and abdominal pain. Her stool was C. diff positive. e was started with treatment on p.o. vancomycin with great results and within 24 hours, her bowel mov ements were down to 1 to 2 a day. The patient is ready to be discharged and she is tolerating soft d iet without any problems. Dr. Novoa saw the patient in consultation. At this point, the patient i s either going to follow up with Dr. Dominguez from [place] or Dr. Novoa. She was given Dr. Novoa's ph one number and if she needs to she is recommended to follow up with either of the gastroenterologists in 1 to 2 weeks. The patient is also recommended to follow up with Dr. Clements in approximately 4 to 7 days. PHYSICAL EXAM AT THE TIME OF DISCHARGE: Blood pressure 123/86, heart rate of 81 and regular, respira tory rate 16, oxygen saturation 100% on room air, temperature 97.3. General: The patient is a very pleasant 28-year-old female who is in no acute distress. Alert, awake, and oriented x3. HEENT: Hea d: Atraumatic, normocephalic. Eyes: Pupils are equal and reactive to light and accommodation. Orop harynx clear. Mucosa moist. Neck: Supple. No JVD. No bruits bilaterally. Cardiovascular: Regula r rate and rhythm. No murmur. Respiratory: Clear to auscultation bilaterally. Abdomen: Soft, mil dly diffusely tender with no rebound, no guarding. Bowel sounds are present in all 4 quadrants. Ext remities: There is no edema. Pulses are +2 bilaterally. No clubbing or cyanosis. On neuro evaluat ion, speech clear. Cranial nerves II through XII grossly intact. Motor strength is 5/5 bilaterally. Please note that this is a short summary of the patient's hospital stay. Please refer to further nd dical records for details. TIME SPENT: Approximately 35 minutes was spent on the patient's discharge. [id number]/[facility] #: [id number]
== END 2019-01-10 12:58 | disposition home or self-care (01) ==
LOC: ED 10:32 → MED 20:43
PROVIDERS: ADMIT Internal Medicine; ATTEND Internal Medicine
DX: A04.72 Enterocolitis due to Clostridium difficile, not specified as recurrent (principal); L40.50 Arthropathic psoriasis, unspecified; R11.2 Nausea with vomiting, unspecified; F41.8 Other specified anxiety disorders; R19.7 Diarrhea, unspecified; R10.9 Unspecified abdominal pain; Z88.2 Allergy status to sulfonamides; R50.9 Fever, unspecified
CPT/HCPCS: 36415; 74177; 80048; 80053; 81003; 81015; 83605; 83690; 84702; 85025; 86140; 87040; 87045; 87046; 87077; 87086; 87177; 87209; 87328; 87329; 87493; 87899; 96374; 96375; 96376; 99284; A9270-GY; G0378; J1885; J2270; J2405; J7512; Q9967